=== PATIENT | female | born 1970 | race Caucasian/White ===

== ENCOUNTER 2017-02-06 08:57 | Emergency (ER) | payer OTHER ==
[~2017-02-06] VITALS: Ht 160 cm; Wt 66.2 kg
[~2017-02-06 08:57] MED LIST: AZITHROMYCIN250 MG PO; CLONAZEPAM0.5 MG PO; CYCLOBENZAPRINE10 MG PO; CYMBALTA60 M1 PO; FLEXERIL10 MG PO; FLUOXETINE HCL20 MG PO; KLONOPIN0.5 MG PO; LOVASTATIN10 MG PO; MOBIC15 MG PO; MOTRIN 600 MG600 MG PO; MULTIPLE VITAM1 EAC2 PO; PAXIL10 MG PO; SEROQUEL 100MG100 MG PO; SEROQUEL50 MG PO; VITAMIN D31000 UNI2 PO
[2017-02-06 10:04] LABS: ABSOLUTE BASOPHIL COUNT 0 /CUMM (0.0-0.2); ABSOLUTE EOSINOPHIL COUNT 0.4 /CUMM (0.0-0.7); ABSOLUTE GRANULOCYTE CT 3.4 /CUMM (1.4-6.5); ABSOLUTE LYMPH COUNT 1.2 /CUMM (1.2-3.4); ABSOLUTE MONOCYTE COUNT 0.4 /CUMM (0.10-0.60); BASOPHIL % 0.8 % (0.0-2.0); EOSINOPHIL % 7.2 % (0-5); GRANULOCYTE % 62.6 % (42.2-75.2); HEMATOCRIT 39.4 % (37-47); MEAN CORPUSCULAR HGB 31.9 PG (27.0-31.0); MEAN CORPUSCULAR HGB CONC 33.6 G/DL (33.0-37.0); MEAN PLATELET VOLUME 7.6 FL (7.4-10.4); PLATELET COUNT 305 /CUMM (130-400); RBC DISTRIBUTION WIDTH 12.9 % (11.5-14.5); RED BLOOD CELL CT 4.15 /CUMM (4.20-5.40); WHITE BLOOD CELL COUNT 5.4 /CUMM (4.8-10.8)
--- NOTE | 2017-02-06 11:17 | ED GI/GU/ABDOMINAL COMPLAINT ---
History of Present Illness General Chief Complaint: General Adult Stated Complaint: ABD PAIN 10 DAYS OF VOMITING WITHDRAWL FROM MED Source: patient, family, old records Exam Limitations: no limitations Vital Signs & Intake/Output Vital Signs & Intake/Output Vital Signs Date Time Temp Pulse Resp B/P Pulse O2 O2 Flow FiO2 Ox Delivery Rate 02/06 1437 97.0 90 18 116/65 98 Room Air 02/06 1014 98 Room Air 02/06 0911 96.5 89 20 145/85 99 Room Air Room Air Allergies Coded Allergies: amoxicillin (Mild, HIVES 01/03/16) clavulanic acid (Mild, HIVES 01/03/16) latex (Mild, HIVES 01/03/16) procaine (Intermediate, HYPERTENSION 01/06/16) benztropine (MYDRIASIS FOR 1 MONTH 01/06/16) Reconcile Medications Cholecalciferol (Vitamin D3) 1,000 IU TAB 1,000 IU PO DAILY VITAMIN D SUPPLEMET (Reported) DULOXETINE HCL (Cymbalta) 60 MG ECC 1 CAP PO DAILY MENTAL HEALTH (Reported) FLUOXETINE HCL (Fluoxetine HCl) 20 MG CAP 20 MG PO DAILY DEPRERSSION Lovastatin 10 MG TAB 1 TAB PO DAILY high lipid (Reported) Multivitamin (Multiple Vitamins) 1 TAB TAB 1 TAB PO DAILY SUPPLEMENT ( Reported) Polyethylene Glycol 3350 (Miralax) 17 GRAM/DOSE POWDER 17 GM PO DAILY constipation mix with water, juice, soda, coffee or tea Prochlorperazine (Compazine) 25 MG SUPP.RECT 1 SUPP TX Q6P PRN vomiting Prochlorperazine Maleate (Compazine) 10 MG TABLET 1 TAB PO Q6P PRN nausea Quetiapine Fumarate (Seroquel) 100 MG TAB 1 TAB PO QPM SLEEP (Reported) Quetiapine Fumarate (Seroquel) 50 MG TAB 1 TAB PO DAILY MENTAL HEALTH ( Reported) Quetiapine Fumarate (Seroquel) 50 MG TAB 1 TAB PO PRN MENTAL HEALTH (Reported ) Triage Note: PT TO ED WITH C/O "I AM WEANING OFF OF PAXIL, UNDER A DOCTOR'S CARE". PT TO ED WITH C/O " FEELING JITTERY, NOT POOPING, VOMITING X 11 YESTERDAY". Triage Nurses Notes Reviewed? yes LMP (ages 10-50): unknown ? n Is pt currently ? No Onset: Last week Duration: week(s):, continues in ED Timing: recent history Quality/Severity: sharpness, vomiting Location: epigastric Activities at Onset: none Prior Abdominal Problems: similar symptoms Past Sexual History: Unobtainable at this time Modifying Factors: Worsens With: exercise. Associated Symptoms: abdominal pain, loss of appetite, nausea/vomiting HPI: 2 weeks prior to admission patient began taper off Paxil and has had nausea vomiting epigastric burning chest discomfort decreased appetite weakness constipation anxiety. She denies fever chills shortness of breath headache dysuria rash bleeding suicidal ideation homicidal ideation hallucination. Past History Travel History Traveled to [facility] past 21 day No Medical History Any Pertinent Medical History? see below for history Neurological: NONE EENT: allergies Cardiovascular: hyperlipidemia Respiratory: NONE Gastrointestinal: NONE Hepatic: NONE Renal: NONE Musculoskeletal: left knee pain Psychiatric: anxiety, depression, 20YRS AGO-SELF INJURIOUS CUTTING TO LEFT ARM Endocrine: NONE, vitamin D deficiency Blood Disorders: NONE, anemia Cancer(s): NONE EX CHEF/Reproductive: SHAR-MENAPAUSAL SHAR-MENOPAUSAL Other Medical Hx: Patient had a mild normocytic anemia during recent [facility] admission but H&H normal in [employer]. History of MRSA: No History of VRE: No History of CDIFF: No Influenza Vaccine: 07/08/15 Surgical History Surgical History: non-contributory Psychosocial History Who do you live with Cousin Services at Home None What is your primary language Pashto Tobacco Use: Never used ETOH Use: denies use Illicit Drug Use: denies illicit drug use Family History Hx Contributory? No Review of Systems Review of Systems Constitutional: Reports: see HPI, malaise, weakness. EENTM: Reports: no symptoms. Respiratory: Reports: no symptoms. Cardiovascular: Reports: no symptoms. GI: Reports: see HPI, abdominal pain, constipation, vomiting. Genitourinary: Reports: no symptoms. Musculoskeletal: Reports: no symptoms. Skin: Reports: no symptoms. Neurological/Psychological: Reports: see HPI, anxiety, confusion, depressed, emotional problems. Hematologic/Endocrine: Reports: no symptoms. Immunologic/Allergic: Reports: no symptoms. All Other Systems: Reviewed and Negative Physical Exam Physical Exam General Appearance: well developed/nourished, alert, awake, anxious, severe distress Head: atraumatic, normal appearance Eyes: Bilateral: normal appearance, PERRL, EOMI, normal inspection. Ears, Nose, Throat, Mouth: hearing grossly normal, dry mucous membranes Neck: normal inspection, supple, full range of motion, normal alignment Respiratory: normal breath sounds, chest non-tender, no respiratory distress, quiet respiration, lungs clear Cardiovascular: regular rate/rhythm, normal peripheral pulses, norml femoral pulses equa Peripheral Pulses: 4+ carotid (R), 4+ carotid (L) Gastrointestinal: normal bowel sounds, soft, non-tender, no organomegaly Back: normal inspection, normal range of motion Extremities: normal range of motion, no ligament instability Neurologic/Psych: no motor/sensory deficits, awake, alert, oriented x 3, electrical and instrument technician II- XII nml as tested Skin: intact, normal color, warm/dry Core Measures ACS in differential dx? No Severe Sepsis Present: No Septic Shock Present: No Progress Differential Diagnosis: biliary colic, gastritis, pancreatitis Plan of Care: Orders Procedure Date/time Status EKG 02/06 09 Active LIPASE 02/06 933 Complete COMPREHENSIVE METABOLIC PANEL 02/06 933 Complete CBC WITHOUT DIFFERENTIAL 02/06 933 Complete Current Medications Sig/Hortencia Start time Last Medication Dose Stop Time Status Admin Prochlorperazine 25 MG ONCE ONE 02/06 1600 UNVr (Compazine 25 MG 02/06 1601 Suppository) Laboratory Tests 02/06/17 0743: Anion Gap 6, Estimated GFR > 60, BUN/Creatinine Ratio 15.7, Glucose 87, Calcium 9.4, Total Bilirubin 0.3, AST 21, ALT 36, Alkaline Phosphatase 54, Total Protein 7.0, Albumin 4.0, Globulin 3.0, Albumin/Globulin Ratio 1.3, Lipase 77, CBC w Diff NO MAN DIFF REQ, RBC 4.15 L, MCV 95.0, MCH 31.9 H, RDW 12.9, MPV 7.6, Gran % 62.6, Lymphocytes % 22.9, Monocytes % 6.5, Eosinophils % 7.2 H, Basophils % 0.8, Absolute Granulocytes 3.4, Absolute Lymphocytes 1.2, Absolute Monocytes 0.4, Absolute Eosinophils 0.4, Absolute Basophils 0, PUBS MCHC 33.6 Diagnostic Imaging: Viewed by Me: Radiology Read. Discussed w/RAD: Radiology Read. Radiology Impression: no acute abnormality, increased stool burden Initial ED EKG: normal axis, normal intervals, normal p-waves, normal QRS complex, normal sinus rhythm, no ST T wave changes Rhythm Strip: normal sinus rhythm Departure Departure Time of Disposition: 1537 Disposition: HOME OR SELF CARE Condition: Stable Clinical Impression Primary Impression: Medication withdrawal Qualifiers: Substance type: other psychoactive substance Qualified Code: F19.939 - Other psychoactive substance use, unspecified with withdrawal, unspecified Secondary Impressions: Constipation Qualifiers: Constipation type: unspecified constipation type Qualified Code: K59.00 - Constipation, unspecified Vomiting Qualifiers: Vomiting type: unspecified Vomiting Intractability: unspecified Nausea presence: unspecified Qualified Code: R11.10 - Vomiting, unspecified Referrals: HARINDER COLON MD (PCP/Family) Departure Forms: Customer Survey General Discharge Information Prescriptions: Current Visit Scripts Prochlorperazine Maleate (Compazine) 1 TAB PO Q6P PRN nausea #30 TAB Prochlorperazine (Compazine) 1 SUPP TX Q6P PRN vomiting #30 SUPP Polyethylene Glycol 3350 (Miralax) 17 GM PO DAILY #527 GM mix with water, juice, soda, coffee or tea
--- NOTE | 2017-02-06 13:05 | RADIOLOGY REPORT ---
EXAMINATION: XR ABDOMEN WITH PA CHEST CLINICAL INDICATION: 46-year-old woman with constipation and chest pain. COMPARISON: 11/16/2015 chest radiograph TECHNIQUE: PA film of the chest was obtained along with supine and upright films of the abdomen. FINDINGS: The lungs are fairly well expanded and clear, without evidence of focal consolidation, pulmonary edema, or pneumothorax. Heart size is within the range of normal. There are no pleural effusions. No free air is seen underneath either hemidiaphragm. Fairly extensive fecal matter seen throughout nondilated loops of large bowel. No dilated small bowel loops, free peritoneal air, or levels are identified. IMPRESSION: 1. No evidence of an acute cardiopulmonary process. 2. Nonspecific bowel gas pattern.
[2017-02-06] MEDS ORDERED: MIRALAX119 GM PO (15:47)
[2017-02-06] MEDS ORDERED: COMPAZINE10 M1 PO (15:47)
[2017-02-06] MEDS ORDERED: COMPAZINE25 M1 PR (15:47)
[2017-02-06 15:57] VITALS: BP 122/68
[2017-02-07] MEDS ORDERED: LOVASTATIN10 M1 PO (11:37)
[2017-02-07] MEDS ORDERED: QUETIAPINE FUMA25 M1 PO (11:38)
[2017-02-07] MEDS ORDERED: ESCITALOPRAM OXA5 MG PO (11:38)
[2017-02-07] MEDS ORDERED: KLONOPIN1 M1 PO (11:38)
[2017-02-07] MEDS ORDERED: PAXIL10 MG/5 M1 PO (11:38)
[2017-02-07] MEDS ORDERED: SEROQUEL XR50 M1 PO (11:39)
[2017-02-07] MEDS ORDERED: FERROUS SULFAT325 M3 PO (11:39)
[2017-02-07] MEDS ORDERED: FLUOXETINE HCL20 M2 PO (11:43)
== END 2017-02-06 16:11 ==
LOC: ERH 08:57
PROVIDERS: Emergency Medicine
DX: F19.939 Other psychoactive substance use, unspecified with withdrawal, unspecified (principal); K59.00 Constipation, unspecified; R11.10 Vomiting, unspecified; R10.13 Epigastric pain; R07.89 Other chest pain
CPT/HCPCS: 74022; 93005; 93010; 96374; 96375; J0780; J1200; J2405

== ENCOUNTER 2017-02-07 11:02 | Inpatient (IN) | payer OTHER ==
[~2017-02-07] VITALS: Ht 160 cm; Wt 65.8 kg
[~2017-02-07 11:02] MED LIST changes: +COMPAZINE10 M1 PO; +COMPAZINE25 M1 PR; +MIRALAX119 GM PO
--- NOTE | 2017-02-07 11:05 | NUR ---
PT BIBA FOR ABDOMINAL PAIN. PT STATES SHE WAS HERE YESTERDAY FOR EVAL OF ABDOMINAL PAIN. PT WAS AT THERAPIST OFFICE AND VOMITTED AND THERAPIST CALLED 911. PT STATES MEDS RECENTLY CHANGED AND SHE ISN'T FEELING WELL
--- NOTE | 2017-02-07 11:07 | NUR ---
PT STATES LEXAPRO DOSE WAS INCREASED AND PAXIL WAS DECREASED AND SINCE THIS STARTED SHE HASN'T BEEN FEELING WELL. PT VERY TEARFUL IN TRIAGE. PT STATES SHE FEELS LIKE SHE "WANTS TO BECAUSE SHE CAN'T TAKE IT ANYMORE"
--- NOTE | 2017-02-07 11:25 | NUR ---
PT TO [facility] AT BEDSIDE FOR WANDING
[2017-02-07] MEDS ORDERED: LOVASTATIN10 M1 PO (11:37)
[2017-02-07] MEDS ORDERED: ESCITALOPRAM OXA5 MG PO (11:38)
[2017-02-07] MEDS ORDERED: PAXIL10 MG/5 M1 PO (11:38)
[2017-02-07] MEDS ORDERED: QUETIAPINE FUMA25 M1 PO (11:38)
[2017-02-07] MEDS ORDERED: KLONOPIN1 M1 PO (11:38)
[2017-02-07] MEDS ORDERED: FERROUS SULFAT325 M3 PO (11:39)
[2017-02-07] MEDS ORDERED: SEROQUEL XR50 M1 PO (11:39)
[2017-02-07] MEDS ORDERED: FLUOXETINE HCL20 M2 PO (11:43)
--- NOTE | 2017-02-07 11:45 | NUR ---
PT CHANGED INTO [facility]. PT HAS 1 BELONING BAG IN CLOSET, 1 VALUBLES BAG AND 1 BAG TO [facility]
--- NOTE | 2017-02-07 12:06 | ED GENERAL ADULT ---
History of Present Illness General Chief Complaint: Abdominal Pain/Flank Pain Stated Complaint: BIBA ABD PAIN, HERE YES FOR SAME Source: patient Exam Limitations: poor historian Vital Signs & Intake/Output Vital Signs & Intake/Output Vital Signs Date Time Temp Pulse Resp B/P Pulse O2 O2 Flow FiO2 Ox Delivery Rate 02/07 2239 98.4 90 18 115/58 99 Room Air 02/07 2042 98.2 89 18 118/64 98 Room Air 02/07 1530 98.5 97 18 123/67 96 Room Air 02/07 1105 97.9 89 20 127/83 98 Room Air Allergies Coded Allergies: amoxicillin (Mild, HIVES 01/03/16) clavulanic acid (Mild, HIVES 01/03/16) latex (Mild, HIVES 01/03/16) procaine (Intermediate, HYPERTENSION 01/06/16) benztropine (MYDRIASIS FOR 1 MONTH 01/06/16) Reconcile Medications Cholecalciferol (Vitamin D3) 1,000 UNIT TABLET 1 TAB PO DAILY SUPPLEMENT ( Reported) Clonazepam (Klonopin) 0.5 MG TABLET 1 TAB PO BIDP PRN ANXIETY (Reported) Duloxetine HCl (Cymbalta) 60 MG CAPSULE.DR 1 CAP PO DAILY MENTAL HEALTH ( Reported) Escitalopram Oxalate 5 MG TABLET 2 TAB PO DAILY MENTAL HEALTH (Reported) Ferrous Sulfate 325 MG (65 MG IRON) TABLET 1 TAB PO DAILY SUPPLEMENT ( Reported) Fluoxetine HCl 20 MG CAPSULE 1 CAP PO DAILY DEPRESSION (Reported) Lovastatin 10 MG TABLET 1 TAB PO QPM CHOLESTEROL (Reported) Multivitamin (Multiple Vitamins) 1 EACH TABLET 1 TAB PO DAILY SUPPLEMENT ( Reported) Paroxetine (Paxil) 10 MG/5 ML ORAL.SUSP 7 ML PO QPM MENTAL HEALTH (Reported) Polyethylene Glycol 3350 (Miralax) 17 GRAM/DOSE POWDER 17 GM PO DAILY constipation mix with water, juice, soda, coffee or tea Prochlorperazine (Compazine) 25 MG SUPP.RECT 1 SUPP DE Q6P PRN vomiting Prochlorperazine Maleate (Compazine) 10 MG TABLET 1 TAB PO Q6P PRN nausea Quetiapine Fumarate 25 MG TABLET 1 TAB PO QPM SLEEP (Reported) Quetiapine Fumarate (Seroquel XR) 50 MG TAB.ER.24H 1 TAB PO QPM SLEEP ( Reported) Triage Note: PT BIBA FOR ABDOMINAL PAIN. PT STATES SHE WAS HERE YESTERDAY FOR EVAL OF ABDOMINAL PAIN. PT WAS AT THERAPIST OFFICE AND VOMITTED AND THERAPIST CALLED 911. PT STATES MEDS RECENTLY CHANGED AND SHE ISN'T FEELING WELL Triage Nurses Notes Reviewed? yes Onset: Abrupt Duration: day(s): Timing: recent history HPI: 02/07/17 12:50 PM This is a 46-year-old female presents to the emergency department complaining of epigastric abdominal pain and vomiting. She says that she thinks it's a reaction to her medications and that she doesn't feel well. She says she also has severe anxiety. She was seen and evaluated in the emergency department yesterday. The onset of symptoms was abrupt, the duration has been days, the severity is significant; as her symptoms required her to come to the emergency department for care. Past History Travel History Traveled to [facility] past 21 day No Medical History Any Pertinent Medical History? see below for history Neurological: NONE EENT: allergies Cardiovascular: hyperlipidemia Respiratory: NONE Gastrointestinal: NONE Hepatic: NONE Renal: NONE Musculoskeletal: left knee pain Psychiatric: anxiety, depression, 20YRS AGO-SELF INJURIOUS CUTTING TO LEFT ARM Endocrine: NONE, vitamin D deficiency Blood Disorders: NONE, anemia Cancer(s): NONE SAND MILLER/Reproductive: SHAR-MENAPAUSAL SHAR-MENOPAUSAL Other Medical Hx: Patient had a mild normocytic anemia during recent [facility] admission but H&H normal in [employer]. History of MRSA: No History of VRE: No History of CDIFF: No Surgical History Surgical History: non-contributory Psychosocial History Who do you live with Cousin Services at Home None What is your primary language Wolof Tobacco Use: Never used Family History Hx Contributory? No Review of Systems Review of Systems Constitutional: Denies: fever. EENTM: Denies: visual changes. Respiratory: Denies: short of breath. Cardiovascular: Denies: chest pain. GI: Reports: abdominal pain. Genitourinary: Reports: no symptoms. Musculoskeletal: Reports: see HPI. Skin: Denies: rash. Neurological/Psychological: Denies: headache. Hematologic/Endocrine: Reports: no symptoms. Physical Exam Physical Exam General Appearance: alert, awake, anxious, moderate distress Head: atraumatic, normal appearance Eyes: Bilateral: normal appearance, PERRL, EOMI. Ears, Nose, Throat: normal pharynx, normal ENT inspection Neck: normal inspection, full range of motion Respiratory: normal breath sounds, chest non-tender, no respiratory distress Cardiovascular: regular rate/rhythm Gastrointestinal: soft, non-tender Back: normal range of motion Extremities: normal inspection, normal range of motion, no edema Neurologic/Psych: no motor/sensory deficits, awake, alert Skin: intact, normal color, warm/dry Core Measures ACS in differential dx? No CVA/TIA Diagnosis: No Severe Sepsis Present: No Septic Shock Present: No Progress Differential Diagnoses I considered the following diagnoses in my evaluation of the patient: [Gastritis , adverse drug reaction, pancreatitis, peptic ulcer disease, depression, anxiety , opiate withdrawal] Plan of Care: Orders Procedure Date/time Status Regular Diet 02/08 B Active Patient Data - inpatient psych 02/07 2021 Active Admit to inpatient psych 02/07 2021 Active Admit to inpatient psych 02/07 193 Active Admit to inpatient psych 02/07 1929 Active ED CRISIS PSYCH CONSULT 02/07 1530 Active Intake & Output 02/07 1308 Active Add-on Test (ER Only) 02/07 1256 Active URINE DRUG SCREEN FOR ER ONLY 02/07 1252 Complete HUMAN BETA HCG SCREEN 02/07 1252 Complete ETHANOL 02/07 1252 Complete COMPREHENSIVE METABOLIC PANEL 02/07 1252 Complete CBC WITHOUT DIFFERENTIAL 02/07 1252 Complete Vital Signs 02/07 UNK Active Nursing Misc 02/07 UNK Active Activity/Ambulation 02/07 UNK Active Current Medications Sig/Hortencia Start time Last Medication Dose Stop Time Status Admin Atorvastatin Calcium 10 MG 1700 02/08 1700 AC (Lipitor) Escitalopram Oxalate 10 MG DAILY 02/08 1000 AC (Lexapro) Paroxetine HCl 10 MG DAILY 02/08 1000 AC (Paxil) Polyethylene Glycol 17 GM DAILY 02/08 1000 AC (Miralax) Quetiapine Fumarate 75 MG AT BEDTIME 02/07 2200 AC (Seroquel) Acetaminophen 650 MG Q4P PRN 02/07 2030 AC (Tylenol) Lorazepam 1 MG Q6-PRN PRN 02/07 2030 AC (Ativan) Nicotine 2 MG Q2 HRS NEEDED PRN 02/07 2030 AC (Nicotine) Ondansetron HCl 4 MG Q6-PRN PRN 02/07 2030 AC (Zofran) Laboratory Tests 02/07/17 1303: Anion Gap 4 L, Estimated GFR > 60, BUN/Creatinine Ratio 17.1, Glucose 79, Calcium 9.0, Total Bilirubin 0.3, AST 20, ALT 35, Alkaline Phosphatase 53, Total Protein 6.8, Albumin 3.8, Globulin 3.0, Albumin/Globulin Ratio 1.3, Total Beta HCG NEGATIVE, CBC w Diff NO MAN DIFF REQ, RBC 3.93 L, MCV 93.6, MCH 31.9 H, RDW 12.6, MPV 7.4, Gran % 64.0, Lymphocytes % 23.6, Monocytes % 7.1, Eosinophils % 5.0, Basophils % 0.3, Absolute Granulocytes 4.3, Absolute Lymphocytes 1.6, Absolute Monocytes 0.5, Absolute Eosinophils 0.3, Absolute Basophils 0, PUBS MCHC 34.0, Serum Alcohol < 10.0 02/07/17 1300: Urine Opiates Screen < 100.00, Methadone Screen 70, Barbiturate Screen < 60, Ur Phencyclidine Scrn < 6.00, Amphetamines Screen < 100, U Benzodiazepines Scrn 101 , Urine Cocaine Screen < 50, Urine Cannabis Screen < 5.00 Initial ED EKG: none Departure Departure Disposition: STILL A PATIENT Condition: Stable Clinical Impression Primary Impression: Anxiety Secondary Impressions: Depression, Vomiting (bilious) following gastrointestinal surgery Referrals: HARINDER COLON MD (PCP/Family) Departure Forms: Customer Survey General Discharge Information Comments 02/07/17 3:29 PM The patient's labs are unremarkable. CT scan of the abdomen and pelvis is negative. She is pending crisis evaluation. She is requesting to speak with crisis about her anxiety. 02/07/17 PATIENT SIGNED OUT TO DR SAMUELS AT [address] scan of the abdomen and pelvis was negative for acute pathology PATIENT: HUYEN PÉREZ PRESENT AGE: 46 PATIENT ACCOUNT NO: [id number] : 68 LOCATION: [facility] ORDERING PHYSICIAN: BRITTNEY LOBATO DO SERVICE DATE: 02/07/17 EXAM TYPE: CAT - CT ABD & PELVIS W/O IV CONTRAS EXAMINATION: CT ABDOMEN AND PELVIS WITHOUT CONTRAST CLINICAL INFORMATION: Diffuse abdominal pain for 2 days. Evaluate for diverticulitis or pancreatitis. COMPARISON: CT of the abdomen and pelvis 01/31/2015. TECHNIQUE: Multidetector volumetric imaging was performed from the superior aspect of the liver through the pubic symphysis. Sagittal and coronal reformatted images were obtained on the technologist's workstation. DLP: 276.12 mGy-cm FINDINGS: LUNG BASES: The visualized lung bases are unremarkable. LIVER, GALLBLADDER, AND BILIARY TREE: The liver is normal in size, shape, and attenuation. No focal hepatic lesion or biliary ductal dilatation is present. The gallbladder is unremarkable with no evidence of radiopaque gallstones, gallbladder wall thickening, or obvious pericholecystic inflammatory changes. PANCREAS: Unremarkable. SPLEEN: Unremarkable. ADRENAL GLANDS: Unremarkable. KIDNEYS AND URETERS: The kidneys are normal in size, shape, and attenuation. No hydronephrosis, hydroureter, or calculi seen. No perinephric stranding. BLADDER: Unremarkable. GASTROINTESTINAL TRACT: The small and large bowel are unremarkable. The appendix is unremarkable. ABDOMINAL WALL: No significant hernia is appreciated. LYMPH NODES: Normal. VASCULAR: Unremarkable. PELVIC VISCERA: Unremarkable. OSSEOUS STRUCTURES: There is stable mild degenerative disc disease at L3-L4, with a slight retrolisthesis of L3 on L4. IMPRESSION: No acute abnormalities in the abdomen or pelvis. DICTATED BY: SILVESTRE SANTOS MD DATE/TIME DICTATED:02/07/171449 DATA GOVERNANCE ANALYST:ROB DATE/TIME TRANSCRIBED:02/07/171449 CONFIDENTIAL, DO NOT COPY WITHOUT APPROPRIATE AUTHORIZATION. <Electronically signed in Other Vendor System> SIGNED BY: SILVESTRE SANTOS MD [id number] Psych Admission Note Psychiatric Admission: I have seen and evaluated HUYEN PÉREZ. I have also reviewed all the pertinent lab results and diagnostic results. HUYEN PÉREZ will be admitted to our inpatient Psychiatric unit for treatment and care. 02/07/17 The patient is being admitted to inpatient psychiatry Critical Care Note Critical Care Note Critical Care Time: 30-74 min
--- NOTE | 2017-02-07 13:08 | NUR ---
LABS DRAWN AND SENT. PT STATES SHE'S ONLY HERE FOR PSYCH, NOT MEDICAL. DOESN'T UNDERSTAND WHY WE NEED TO OBTAIN BLOOD WORK. POLICY AND POC REVIEWED WITH PATIENT
--- NOTE | 2017-02-07 13:09 | NUR ---
PT MEDICATED PER EMAR AT THIS TIME.
[2017-02-07 13:29] LABS: ABSOLUTE BASOPHIL COUNT 0 /CUMM (0.0-0.2); ABSOLUTE EOSINOPHIL COUNT 0.3 /CUMM (0.0-0.7); ABSOLUTE GRANULOCYTE CT 4.3 /CUMM (1.4-6.5); ABSOLUTE LYMPH COUNT 1.6 /CUMM (1.2-3.4); ABSOLUTE MONOCYTE COUNT 0.5 /CUMM (0.10-0.60); BASOPHIL % 0.3 % (0.0-2.0); HEMATOCRIT 36.8 % (37-47); MEAN CORPUSCULAR HGB 31.9 PG (27.0-31.0); MEAN CORPUSCULAR VOLUME 93.6 FL (81.0-99.0); MEAN PLATELET VOLUME 7.4 FL (7.4-10.4); PLATELET COUNT 292 /CUMM (130-400); RBC DISTRIBUTION WIDTH 12.6 % (11.5-14.5); RED BLOOD CELL CT 3.93 /CUMM (4.20-5.40); WHITE BLOOD CELL COUNT 6.7 /CUMM (4.8-10.8)
--- NOTE | 2017-02-07 14:47 | NUR ---
PT TO AND FROM CAT SCAN
--- NOTE | 2017-02-07 15:09 | CT SCAN REPORT ---
EXAMINATION: CT ABDOMEN AND PELVIS WITHOUT CONTRAST CLINICAL INFORMATION: Diffuse abdominal pain for 2 days. Evaluate for diverticulitis or pancreatitis. COMPARISON: CT of the abdomen and pelvis 01/31/2015. TECHNIQUE: Multidetector volumetric imaging was performed from the superior aspect of the liver through the pubic symphysis. Sagittal and coronal reformatted images were obtained on the technologist's workstation. DLP: 276.12 mGy-cm FINDINGS: LUNG BASES: The visualized lung bases are unremarkable. LIVER, GALLBLADDER, AND BILIARY TREE: The liver is normal in size, shape, and attenuation. No focal hepatic lesion or biliary ductal dilatation is present. The gallbladder is unremarkable with no evidence of radiopaque gallstones, gallbladder wall thickening, or obvious pericholecystic inflammatory changes. PANCREAS: Unremarkable. SPLEEN: Unremarkable. ADRENAL GLANDS: Unremarkable. KIDNEYS AND URETERS: The kidneys are normal in size, shape, and attenuation. No hydronephrosis, hydroureter, or calculi seen. No perinephric stranding. BLADDER: Unremarkable. GASTROINTESTINAL TRACT: The small and large bowel are unremarkable. The appendix is unremarkable. ABDOMINAL WALL: No significant hernia is appreciated. LYMPH NODES: Normal. VASCULAR: Unremarkable. PELVIC VISCERA: Unremarkable. OSSEOUS STRUCTURES: There is stable mild degenerative disc disease at L3-L4, with a slight retrolisthesis of L3 on L4. IMPRESSION: No acute abnormalities in the abdomen or pelvis.
--- NOTE | 2017-02-07 15:11 | NUR ---
Rowdy HOLLIDAY from Out Pt tx called to inform that pt's therapist Josefa Dukes called to let her know pt was sent to the ED for medical reasons, from her therapist's office, but as she was waiting for the ambulance she made a passive SI statement that she wishes God would take her. Clarisse also treats pt in Out pt.
--- NOTE | 2017-02-07 15:17 | ED PSY CRISIS COLLATERAL NOTE ---
Collateral Note Collateral Note Family/Inform/Cedric Contacts: Clarisse HOLLIDAY from Out pt called to inform that pt was sent from her therapist' s Josefa Abernathy office for medical reasons, but as she was waiting for the ambulance, she made a passive suicidal statement that she wishes God would take her. Clarisse treats pt in Out pt for med management and Josefa is her therapist in private practice.
--- NOTE | 2017-02-07 16:10 | NUR ---
PT MEDICATED WITH GI COCKTAIL PER ORDER AT THIS TIME. PT SITTING UP EATING LUNCH TRAY. SITTER REMAINS PRESENT
--- NOTE | 2017-02-07 17:00 | NUR ---
PT AWAITING CRISIS EVAL. Informed waiting has been performed.
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
--- NOTE | 2017-02-07 20:07 | NUR ---
PT ANXIOUS, ON PHONE WITH MOTHER, REQUESTING ATIVAN. CRISIS MADE AWARE
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
--- NOTE | 2017-02-07 22:34 | NUR ---
PT MEDICATED WITH 50 MG SEROQUIL AND 0.5 MG KLONOPIN ORDERED
--- NOTE | 2017-02-08 00:10 | NUR ---
REPORT GIVEN TO TRACIE BABCOCK. PT TRANSFERRED TO [facility] WITH 1 BELONGINGS AND ONE VALUABLES BAG. PERSONAL MEDS REMAIN IN PHARMACY
--- NOTE | 2017-02-08 06:05 | NUR ---
SLEPT WELL OVERNIGHT, NO COMPLAINTS
[2017-02-08 08:23] VITALS: BP 120/75
--- NOTE | 2017-02-08 09:47 | OP PSYCH DISCHARGE ---
DSM5/PS Stressors/Medical Prob Diagnosis' (DSM 5, Stressors, Medical): F332. Major Depressive Disorder, recurrent, severe with anxious Distress and F43.10 PTSD (Per IOP D/C Note) Current GAF: 25 Comments: N/A REASON FOR DISCHARGE: CHANGED TO DIFFERENT LIP, Patient presented at ER with suicidal ideation. ADDITIONAL COMMENTS: Patient was sent to ER for evaluation by her 1:1 therapist; prescriber was informed that she is being evaluated for suicidal ideation as she attempts to come off of Paxil DSM5/PS Stressors/Medical Prob Diagnosis' (DSM 5, Stressors, Medical): F332. Major Depressive Disorder, recurrent, severe with anxious Distress and F43.10 PTSD (Per IOP D/C Note) Current GAF: 25 Comments: N/A
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
--- NOTE | 2017-02-08 11:01 | SOCIAL WORKER PROG NOTE PSYCH ---
Social Work Progress Note Progress Note Pt continues to endorse suicidal thoughts, she feels her medication is not working effectively, she is concerned with anxiety and general feeling unneasiness. She reports feeling concerned about not getting her period. Pt was cooperative and completed psychosocial.
--- NOTE | 2017-02-08 12:04 | History & Physical ---
General Information and HPI MD Statement: I have seen and personally examined HUYEN PÉREZ and documented this H&P. The patient is a 46 year old F who presented with a patient stated chief complaint of depresion.. Source of Information: patient Exam Limitations: no limitations History of Present Illness: 46 y/o F with pmh sig for depression, anxiety, hyperlipidemia, anemia was admitted to [facility] with complaint off vomiting which is intractable. As an outpatient patient's psychiatrist is trying to adjust her Paxil as well as Lexapro. Patient claims that she had experienced vomiting in the past when the medications were adjusted. The nausea, dry heaving is so much that she had made statement that she wants to . Upon my interview with the patient patient denies any such feelings of hurting herself. She is very uncomfortable with the constant nausea feeling and claims that she would like to get some Maalox with lidocaine. She also is requesting a warm compress. She currently denies any headache, any chest pain. She does complain of constipation. Allergies/Medications Allergies: Coded Allergies: amoxicillin (Mild, HIVES 01/03/16) clavulanic acid (Mild, HIVES 01/03/16) latex (Mild, HIVES 01/03/16) procaine (Intermediate, HYPERTENSION 01/06/16) benztropine (MYDRIASIS FOR 1 MONTH 01/06/16) Home Med list Cholecalciferol (Vitamin D3) 1,000 UNIT TABLET 1 TAB PO DAILY SUPPLEMENT ( Reported) Clonazepam (Klonopin) 0.5 MG TABLET 1 TAB PO BIDP PRN ANXIETY (Reported) Escitalopram Oxalate 5 MG TABLET 2 TAB PO DAILY MENTAL HEALTH (Reported) Ferrous Sulfate 325 MG (65 MG IRON) TABLET 1 TAB PO DAILY SUPPLEMENT ( Reported) Lovastatin 10 MG TABLET 1 TAB PO QPM CHOLESTEROL (Reported) Multivitamin (Multiple Vitamins) 1 EACH TABLET 1 TAB PO DAILY SUPPLEMENT ( Reported) Paroxetine (Paxil) 10 MG/5 ML ORAL.SUSP 7 ML PO QPM MENTAL HEALTH (Reported) Polyethylene Glycol 3350 (Miralax) 17 GRAM/DOSE POWDER 17 GM PO DAILY constipation mix with water, juice, soda, coffee or tea Prochlorperazine (Compazine) 25 MG SUPP.RECT 1 SUPP [place] Q6P PRN vomiting Prochlorperazine Maleate (Compazine) 10 MG TABLET 1 TAB PO Q6P PRN nausea Quetiapine Fumarate 25 MG TABLET 1 TAB PO QPM SLEEP (Reported) Quetiapine Fumarate (Seroquel XR) 50 MG TAB.ER.24H 1 TAB PO QPM SLEEP ( Reported) Past History Travel History Traveled to [place] past 21 day No Medical History Neurological: NONE EENT: allergies Cardiovascular: hyperlipidemia Respiratory: NONE Gastrointestinal: NONE Hepatic: NONE Renal: NONE Musculoskeletal: NONE Psychiatric: anxiety, depression, 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 History of MRSA: No History of VRE: No History of CDIFF: No Influenza Vaccine: 09/07/16 Surgical History Surgical History: non-contributory Past Family/Social History Family History Relations & Conditions if any MOTHER Relation not specified for: FH: cancer Psychosocial History Who Do You Live With? parent Services at Home: None Primary Language: French Functional Ability ADLs Independent: dressing, eating, toileting, bathing. Ambulation: independent IADLs Independent: shopping, housework, finances, food prep, telephone, transportation , medication admin. 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 EENTM: Reports: see HPI. Cardiovascular: Reports: see HPI. Respiratory: Reports: see HPI. GI: Reports: see HPI. Genitourinary: Reports: see HPI. Musculoskeletal: Reports: see HPI. Skin: Reports: see HPI. Exam & Diagnostic Data Last 24 Hrs of Vital Signs/I&O Vital Signs Date Time Temp Pulse Resp B/P Pulse O2 O2 Flow FiO2 Ox Delivery Rate 02/08 1229 88 124/69 02/08 0823 98.3 95 120/75 02/08 0000 98.2 90 18 116/60 99 Room Air 02/07 2239 98.4 90 18 115/58 99 Room Air 02/07 2042 98.2 89 18 118/64 98 Room Air 02/07 1530 98.5 97 18 123/67 96 Room Air Intake & Output 02/08 1600 02/08 0800 02/08 0000 Intake Total Output Total Balance Patient 145 lb Weight Physical Exam General Appearance Alert, Oriented X3, Cooperative, looks uncomfortale 2/2 to nausea Skin No Rashes, No Breakdown HEENT PERRLA, mucous membranes somewhat dry Neck Supple Cardiovascular Regular Rate, Normal S1, Normal S2 Lungs Clear to Auscultation Abdomen Normal Bowel Sounds, Soft, No Tenderness Neurological Cranial Nerves II through XII: intact Extremities No Edema Last 24 Hrs of Labs/Mack: Laboratory Tests 02/07/17 1303: Anion Gap 4 L, Estimated GFR > 60, BUN/Creatinine Ratio 17.1, Glucose 79, Calcium 9.0, Total Bilirubin 0.3, AST 20, ALT 35, Alkaline Phosphatase 53, Total Protein 6.8, Albumin 3.8, Globulin 3.0, Albumin/Globulin Ratio 1.3, Total Beta HCG NEGATIVE, CBC w Diff NO MAN DIFF REQ, RBC 3.93 L, MCV 93.6, MCH 31.9 H, RDW 12.6, MPV 7.4, Gran % 64.0, Lymphocytes % 23.6, Monocytes % 7.1, Eosinophils % 5.0, Basophils % 0.3, Absolute Granulocytes 4.3, Absolute Lymphocytes 1.6, Absolute Monocytes 0.5, Absolute Eosinophils 0.3, Absolute Basophils 0, PUBS MCHC 34.0, Serum Alcohol < 10.0 02/07/17 1300: Urine Opiates Screen < 100.00, Methadone Screen 70, Barbiturate Screen < 60, Ur Phencyclidine Scrn < 6.00, Amphetamines Screen < 100, U Benzodiazepines Scrn 101 , Urine Cocaine Screen < 50, Urine Cannabis Screen < 5.00 Assessment/Plan Assessment: 46-year-old female is admitted to Inpatient Psychiatry with intractable nausea and vomiting likely secondary to medication side effects and side effect from medication dose adjustment. She also had made some suicidal ideation statement because of her symptoms. I believe the psychiatric management to psychiatrist. She has ordered Zofran. I will order some GI cocktail for her and who also request a warm compress. I will order some stool softeners for her. For her hyperlipidemia, she is on lovastatin. He is she will be getting atorvastatin. Continue the rest of the medications. As Ranked By This Provider Problem List: 1. Vomiting 2. Constipation 3. Anxiety 4. Depression Miscellaneous Miscellaneous Documentation Attending Case Discussed With: Ana Jesus MD Primary Care Physician: ISAIAH KINNEY,HARINDER Patient sees these Specialists pschiatrist Level of Patient Care: MILAN Alberts Attending MD Review Statement Attending Statement Attending MD Statement: examined this patient, discuss w/resident/PA/BENCH HAND, agreed w/resident/PA/BENCH HAND, reviewed EMR data (avail), discussed with nursing, amended to note
--- NOTE | 2017-02-08 12:04 | SOCIAL WORKER TX PLAN PSYCH ---
Treatment Plan - Please Document: - Evidence that there is ongoing collaboration between - the patient and the interdisciplinary team, - including the patient's active participation and - responsibility for engaging in the treatment regimen, - and that the treatment plan is individualized and - relevant to the patient's conditions. - Treatment plan should reflect documentation indicating - that all active therapeutic efforts are included. Strengths/Capabilities: The patient has good insight into her symptoms and is motivated for treatment. Physical Limitations (Interventions): Currently experiencing physical symptoms, which she states are related to her medication changes. Patient Identified Trmt Goals: " I want to feel better." Discharge Plan: [facility] Problem/Goals #1 Problem #1: suicidal ideation Goal (Short Term): Today I will attend 2 groups Today I will identify 2 stressors Today I will identify 2 positive supports Today I will work on recognizing 3 emotions I am feeling Goal (Web Ui Software Engineer): Be free of suicidal thoughts/attempts Develop 3 coping skills to deal with depression Identify 3 positive support systems to call in crisis Develop a crisis plan with 3 pepper people Identify 2 positive traits per week about myself Identify 2 things I have to look forward to Identify 2 positive people in my life and 1 thing I appreciate about them Interventions: Learn ways to manage depressive symptoms accordingly and identify positive supports to manage life stressors and mood fluctuations. Modalities: Encourage groups, education on depression, provide CBT treatment, family meeting. DSM5/PS Stressors/Medical Prob Diagnosis' (DSM 5, Stressors, Medical): F332. Major Depressive Disorder, recurrent, severe with anxious Distress and F43.10 PTSD (Per IOP D/C Note) Current GAF: 25 Treatment Team - Responsibilities of members of the treatment team include: - Medication Management- MD or RUNNER WORKER - Medication Administration and Monitoring- Nurse - Group Therapy- Occupational Therapist - 1:1 Therapy,Disch Planning,family involvement-Group Leader
[2017-02-08 12:29] VITALS: BP 124/69
--- NOTE | 2017-02-08 14:08 | NUR ---
PT IS MINIMALLY OUT IN THE COMMUNITY INTERACTING WITH PEERS/STAFF. PT COMPLAINING OF SEVERE STOMACH ACHES AND PAIN-- RN NOTIFIED. FREQUENTLY TRYING TO LAY DOWN AND REST. TRYING TO ATTEND GROUPS BUT WILL LEAVE IN THE MIDDLE IF NOT FEELING WELL. VS ARE STABLE AND DENIES SI/HI.
--- NOTE | 2017-02-08 14:30 | NUR ---
PT PUT IN A 3 DAY REQUEST FOR TERMINATION OF HER VOLUNTARY. SR SAMAYOA NOTIFIED
[2017-02-08 16:01] VITALS: BP 109/60
--- NOTE | 2017-02-08 17:54 | CPS MD/APRN INITIAL ASSE PSYCH ---
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 Chief Complaint: "I feel like I wanna ." Reaction to Hospitalization: ambivalent but hoping for help History of Present Illness Onset of Illness: Patient today me she began to feel much worse only within the past few weeks; she cites the slow ongoing Paxil taper as contributing to this, plus building premenstrual tension as her period is overdue (has been perimenopausal for some time). The way she has been feeling as a consequence of the above sent her into a desperate panic eventuating in suicidality Circumstances Leading to Admission: (see above under Onset of Illness) Problem(s) Justifying Need for Admission: --intense suicidality and rising impulsivity with history of life-threatening overdose in 11/2015 requiring stabilization in [facility] ICU Other HPI: Patient experienced similar "withdrawal" symptoms in the past when trying to taper away Paxil which patient says used to work but more recently only helps "sometimes" with her depressive moods and suicidality. She has been working with Clarisse Hannah APRN for some months trying to switch over from Paxil to Lexapro but suffering intensification of multiple somatic complaints (many of them G.I.-related) with each decrease in Paxil, especially below 20mg/day (or increase in Lexapro above 5mg daily). Past Psychiatric History Past Diagnosis(es)- if any: (according to [facility] discharge summary from -01/14/2016 admission): MDD, recurrent, severe, with panic symptoms Unspecified Panic Disorder hx of PTSD hx of dramatic and prolonged Paxil withdrawal symptomatology/syndrome Past Precipitating Factors- if any: as noted above, attempts to lower away Paxil appear to have precipitated current [facility] admission, as well as that of 01/05/2016 - Include inpatient and outpatient treatment Treatment History: Prior to [facility] admission in 11/2015 (and subsequent overdose which required admission to [facility] ICU and treatment in the [facility] prior to re-admission to [facility] in 12/2015) patient denies having been admitted to psychiatric hospital units "in 20 years," though she has engaged in extensive outpatient treatment in subsequent years. History of Suicide Attempts or Gestures recent very serious suicide attempt via overdose in early 2015 requiring admission to the ICU at [facility] Substance Abuse History: denied Allergies: Coded Allergies: amoxicillin (Mild, HIVES 01/03/16) clavulanic acid (Mild, HIVES 01/03/16) latex (Mild, HIVES 01/03/16) procaine (Intermediate, HYPERTENSION 01/06/16) benztropine (MYDRIASIS FOR 1 MONTH 01/06/16) Home Med List: (according to most recent outpatient prescriber's progress note of 02/04/2017)): Paxil, 12mg liquid (6ml) nightly at HS Lexapro, 10mg daily Seroquel XR, 50mg nightly Seroquel (immediate release), 25mg at HS - Include any medical condition(s) that may - impact the patient's recovery/remission Past History Medical History Neurological: NONE EENT: allergies Cardiovascular: hyperlipidemia Respiratory: NONE Gastrointestinal: NONE, gastric distress related to attempts to taper away Paxil Hepatic: NONE Renal: NONE Musculoskeletal: NONE Psychiatric: anxiety, depression, 20YRS AGO-SELF INJURIOUS CUTTING TO LEFT ARM Endocrine: vitamin D deficiency Blood Disorders: NONE, anemia Cancer(s): NONE PRECISION DANCER/Reproductive: SHAR-MENOPAUSAL sx severe cramping and heightened anxiety/ tension/irritable SHAR-MENOPAUSAL Other Medical Hx: Patient had a mild normocytic anemia during recent [facility] admission but H&H normal in E.D. 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 History of MRSA: No History of VRE: No History of CDIFF: No Isolation History: Standard Influenza Vaccine: 09/07/16 Surgical History Surgical History: non-contributory Psychiatric Family/Social Hx Family History Psychiatric Illness: sister was bipolar Substance Use: sister was polydrug addicted, paternal uncle used heroin Suicides: paternal uncle suicided via heroin overdose Other Family History: noncontributory at this time Social History Living Situation: (see above under Identifying Information) Significant Relationships (family/friends): previous relationships with men and women; has considered herself "bisexual"; she is close to her mother with whom she relates and who she looks out for/cares for Education: some college Vocation/Occupation: has 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 - #1 Recognizing dangerous situations. - #2 Coping Skills. - #3 Basic information about quitting. Status of Tobacco Cessation Counseling: N/A B/C NO TOB USE Cessation Med Status: No Tobacco Use last 30d Alcohol Screening - ETOH screen POS if BAL >=80 or Audit-C>= M4/F3 Audit-C Score from Diag Assess: 0 Blood Alcohol Level: Laboratory Tests 02/07 1303 Toxicology Serum Alcohol (<10 MG/DL) < 10.0 Alcohol Use Screening Results: Neg per Audit C &/or BAL - If ETOH counseling indicated - the following topics are required. - #1 Express concern about the patient's - drinking at unhealthy levels, include informing - of national norms for moderate drinking: - men <= 14 drinks/week, max 4 drinks/occasion - women <= 7 drinks/week, max 3 drinks/occasion - #2 Providing feedback, including linking alcohol to - negative physical effects (liver injury, hypertension) - negative emotional effects (relationship problems and - depression) - negative occupational consequences (reduced work - performance) - #3 Advising the patient to abstain from alcohol or - to drink below national norms for moderate drinking - (as listed above). Status of ETOH Use Counseling: N/A B/C NO ETOH Use Metabolic Screening - Screen if on a Neuroleptic Medication - Metabolic screening should include: - Blood Pressure, BMI, Glucose or Hgb A1c, & a - Lipid profile from within the past 365 days. Metabolic Screening () Not Applicable, patient not on a neuroleptic. OR ([X]) Patient on a neuroleptic(s) . Enter below results for Glucose or Hemoglobin A1C, and lipid panel if obtained during the last 365 days. BMI: 25.600 Blood Pressure: 109/60 Laboratory Results (If applicable): glucose = 79 (on 02/07/2017) cholesterol, triglycerides, HDL and LDL (all pending from 02/07/2017) Exam and Plan Mental Status Examination Ambulation Status: without assistance Appearance: neat and well-groomed Attitude towards examiner: somewhat ambivalent initially but eventually more positive and able to work together Psychomotor activity: normal Behavior: appropriate Quality of speech: normal Affect: mildly constricted and tense Mood: depressed, anxious, dysphoric, irritable Suicidal Ideation: acknowledged suicidality immediately 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 but feels safer here on [facility] and was able to provide a safety pledge/promise Homicidal Ideation: denied Hallucinations: denied Paranoid/Delusional Material: denied; no evidence of; though somewhat mildly distrusting at first, no clear paranoia Difficulties with thought organization: not evident Insight: limited but fair and likely to improve Judgment: fair but limited by current level of anxiety/panic Orientation: full Cognition: intact Memory Function: intact Estimate of intellectual functioning: average Assets/Strengths Patient Identified Assets/Strengths: --has close relationship with mother and is helpful to same (mother general stable but arthritic) --had managed to stay out of psych hospital units for over 20 years (but has had 3 admissions in last one year) --has never smoked --has not had any alcohol or other drug problems (her sister was a "major" drug user/abuser) Impression/Plan Impression and Plan: Patient is having surprizingly similar presenting symptoms to those at the time of her most recent [facility] admission, -01/14/2016; whereas, she has wanted to wean off of her long-effective Paxil regimen due to it working less reliably in recent years AND because she has had so many trouble getting off of it ("and I don't want to be a drug addict") the considerable difficulty she has experienced trying to come off it over an extended period may speak at least partly to its relative benefit to her. I suggested going for augmentation of Paxil rather than continuing to struggle to get off it. We should have a family meeting and refer patient to behavioral health IOP prior to her resuming her ongoing treatment with prescriber, Clarisse Hannah APRN (in [facility]) and therapist ( in [facility] ) Josefa Araiza LCSW - Include all active medical diagnosis that require tx DSM 5 Diagnosis(es): Unspecified Depression, recurrent with significant anxiety/panic symptoms but nonpsychotic Unspecified Anxiety Disorder with panic symptoms hx of PTSD prolonged and severe Paxil withdrawal syndrome - Initial Tx Plan for Active Psych & Medical Conditions Treatment Plan: --stabilize Paxil initially at 20mg/day --add low dose Wellbutrin (immediate release) as augmentation --consider trial of low dose [place] augmentation (have already begun discussion with patient on this subject) --at least temporarily increase Klonopin to 1mg 2x/day to treat escalating panic anxiety -try to limit dose of Seroquel and use only the immediate release formulation --try to arrange family meeting or meeting with the patient and a close friend prior to discharge --try to refer patient to the behavioral health IOP (and mobilize her to increased socialization and back to gainful employment) - Factors that would help patient function - in a less restrictive setting. Factors: --early reduction in current very high level of anxiety and somatic discomfort --rapid response to low dose Wellbutrin augmentation without overstimulation/ activation
[2017-02-08 20:04] VITALS: BP 128/82
--- NOTE | 2017-02-08 21:11 | NUR ---
PT IS COOPERATIVE WITH STAFF AND PEERS, AND COMPLIANT WITH UNIT RULES. PT APPEARS ANXIOUS, STATING THAT SHE FELT CLAUSTROPHOBIC UPON ASKING HER WHAT THE MATTER WAS. PT DID SEEM TO CALM THE EVENING PROGRESSED, SPENDING MOPRE TIME IN [place] AND INTERACTING WITH OTHERS. MOOD IS STABLE, AFFECT IS EUTHYMIC TO FULL RANGE, APPEARS ANXIOUS AT TIMES, COMMUNICATION IS ORGANIZED AND APPEARS NORMAL IN ALL RESPECTS, AND APPETITE IS NORMAL. PT DENIES SI AT THIS TIME.
--- NOTE | 2017-02-09 06:19 | NUR ---
PT APPEARED TO SLEEP. PT HAS A 3 DAY LETTER FROM 1300 ON 02/08.
[2017-02-09 07:39] VITALS: BP 133/77
[2017-02-09 12:02] VITALS: BP 126/77
--- NOTE | 2017-02-09 13:32 | NUR ---
PT IS COMPLIANT AND COOPERATIVE. PT IS OUT IN COMMUNITY INTERACTING WELL WITH STAFF AND PEERS. PT IS ATTENDING GROUPS. PT IS FOCUSED ON MEDICAL PROBLEMS AND NOT TALKING MUCH ABOUT MENTAL PROBELMS. PT MOOD IS STABLE WITH A CONSTRICTED AFFECT. PT DENIES SI THOUGHTS.
--- NOTE | 2017-02-09 15:23 | CP SOUTH PROGRESS NOTE PSYCH ---
Psych (Inpt) Progress Note Progress Note Include the following elements, when applicable: Involvement in the active treatment of the patient with behavioral observations of the patient and the patient's response to the treatment. Review of the ongoing treatment process in the context of the treatment plan. Indication of how multi-disciplinary staff members are carrying out the treatment plan. Plans for future interventions and recommendations for revision of the treatment plan. Liaison with other physicians/providers. Progress Note: PSYCHIATRIST NOTE, 02/09/2017: I discussed this patient's progress to date, current mental status, treatment and discharge planning with staff team today in the daily morning ITTM and also met with her again myself in individual session. Patient appeared to me to be slightly less overwhelmed, irritable and at wit's end today, not more jumpy, shaky or generally uncomfortable with the addition of low dose Wellbutrin (75mg of immediate release form) and stabilization of Paxil dose at 20mg/day; this itself is gratifying given her sensitivity to even minor medication changes /adjustments by history; for the latter reason, and because patient seems to be progressing at this point, I will not make any changes in dosages of Wellbutrin or Paxil at this time. Patient does wish to discontinue the Lexapro at this point and had refused to take it this morning; I will discontinue it. I have increased Klonopin, at least temporarily, and I think this is helping patient manage other medication changes; we discussed at length the abuse and addiction issues involved with any benzodiazepine; patient is well aware of risks and will want to begin tapering dose within a week or two should other med changes begin to make sustained improvements in her anxiety/dysphoria/panic/irritability.
[2017-02-09 15:51] VITALS: BP 124/71
--- NOTE | 2017-02-09 16:07 | SOCIAL WORKER PROG NOTE PSYCH ---
Social Work Progress Note Progress Note Patient had visit today from peer services and care management from [facility]. Patient reported that she had never met them before but was appreciative of them coming to the hospital to visit her. They met with patient and offerred services that are available to her free of cost through [facility] once she returns home to the community. They discussed offering help through daily support, applying for disability, applying for employment, food stamps, and being available to talk during normal business hours whenever any issues arise. Patient reported feeling grateful for having these services and is looking forward to utilizing them. Patient denies SI at present but reports anxiety over starting new medication, Wellbutrin. Patient is concerned of physical symptoms she may experience due to bad reactions from other medications in the past. She reports being willing to continue to try it while in the hospital. Patient reported that she resides with her mother and feels that her mother is not doing well at home without her. Patient is concerned being away form her mother and hopes to discharge before the weekend. I informed her that this is very likely, we just need to continue to monitor med changes and arrange for safe aftercare plan. Patient wishes to return to therapy with Josefa Arango 2x week and continue med management with OPS. I left message for Josefa asking for returned call to discuss patients treatment. I scheduled patient with OPS 02/24/17 @9am with Usha VILCHIS and 03/04/17 @8:30am with Clarisse HOLLIDAY.
[2017-02-09 19:39] VITALS: BP 111/68
--- NOTE | 2017-02-09 20:41 | NUR ---
PT IS CALM, COOPERATIVE WITH STAFF AND PEERS, AND COMPLIANT WITH UNIT RULES. PT IS OFTEN IN [place], INTERACTING WELL WITH OTHERS. MOOD IS STABLE, AFFECT APPEARS EUTHYMIC TO FULL RANGE, CAN AT TIMES APPEAR SLIGHTLY ANXIOUS, COMMUNICATION IS ORGANIZED AND APPEARS NORMAL IN ALL RESPECTS, AND APPETITE IS NORMAL. PT DENIES SI AT THIS TIME.
--- NOTE | 2017-02-10 06:31 | NUR ---
PT APPEARED TO SLEEP. 3 DAY LETTER SUBMITTED 02/08 AT 1300.
[2017-02-10 07:42] VITALS: BP 117/71
[2017-02-10 12:06] VITALS: BP 114/69
--- NOTE | 2017-02-10 13:20 | SOCIAL WORKER PROG NOTE PSYCH ---
Social Work Progress Note Progress Note Patient presents calm with normal mood and affect congruent to mood today. Patient reports eagerness to return home tomorrow and feeling ready to do so. She reported not feeling like she is getting much out of being here at this time and mainly only came in due to her taper from paxil. Patient plans to return to therapy with Josefa Carreno 2x week and has appointments arranged for OPS. Patient reports some anxiety today over an incident that occurred with another patient making derogatory comments about a patients gender/ sexual preference. Patient reported feeling offended since she identifies herself as a lesbian and had to raise her voice to tell the patient to stop with his comments. Patient is trying to not take the comments personally and was appropriate with verbalizing her feelings towards the incident.
--- NOTE | 2017-02-10 13:24 | NUR ---
PT IS COMPLIANT AND COOPERATIVE WITH UNIT RULES. PT IS OUT IN COMMUNITY INTERACTING WELL WITH STAFF AND PEERS. PT IS ATTENDING GROUPS. PT MOOD IS STABLE WITH A FULL RANGE AFFECT. PT REPORTS SOME ANXIETY AT TIMES. PT DENIES SI THOUGHTS.
[2017-02-10 15:35] VITALS: BP 110/79
--- NOTE | 2017-02-10 16:20 | CP SOUTH PROGRESS NOTE PSYCH ---
Psych (Inpt) Progress Note Progress Note Include the following elements, when applicable: Involvement in the active treatment of the patient with behavioral observations of the patient and the patient's response to the treatment. Review of the ongoing treatment process in the context of the treatment plan. Indication of how multi-disciplinary staff members are carrying out the treatment plan. Plans for future interventions and recommendations for revision of the treatment plan. Liaison with other physicians/providers. Progress Note: PSYCHIATRIST NOTE, 02/10/2017: I discussed this patient's progress to date, current mental status, treatment and discharge planning with staff today in the daily morning ITTM and also met with her again in individual session. Patient continued her somatization, describing multiple "stomach" and general body discomforts sitting comfortably without the slightest evidence of actual somatic distress. When I remarked that her extreme sensitivities to minor medication changes are "frustrating," she spun into an emotional/enraged tirade that I was telling her she "is a hopeless case" or "someone not worth helping." I offered that her physical sensitivities make it very difficult to get beyond physical complaints to the psychological issues she has told me she has and wishes to deal with and master. Patient then went on to once again describe her "premenopausal" issues over the past 2+ years which have caused her to regress from a sound psychological state on a stable dose of Paxil. I suggested she might do well to obtain further consultation with regard to PMS and PMS-related issues during perimenopause from a subspecialist in that area of medicine that possibly all our psychotropic medication manipulations "are not working" because the cause of her distress lies elsewhere; she questioned whether she might do better, or at least just as well, on "no" medications while other avenues of investigation are explored. For the present, patient decided to continue on Paxil, 20mg/day at 6pm, Klonopin, 1mg 2x/day, low dose regular/PRN Seroquel and the same low dose of Wellbutrin (immediate release form), 75mg/day in AM. She was worried about coming off 10mg of Lexapro daily "all at once" and noted side effects from this medication not starting until increase from 5mg to 10mg/day, and we decided to restart Lexapro, 5mg/day, at least temporarily. Patient is still planning for discharge tomorrow, 02/11/2017, to resume her consultations in OPS with Clarisse Hannah APRN, and to see Josefa Araiza LCSW, again privately in twice weekly psychotherapy.
[2017-02-10 19:39] VITALS: BP 120/96
--- NOTE | 2017-02-10 22:18 | NUR ---
PT IS STABLE YET TEARFUL AT TIMES. UPSET WITH HER MEDICATIONS YET LOOKING FORWARD TO DC TOMORROW. SPOKE ABOUT HOW SHE IS GOING TO IOP AFTER HER INPATIENT STAY AND IS EXCITED FOR THIS. HAS A POSTIIVE OUTLOOK ON THE FUTURE DESPITE BEING UPSET ABOUT HER MEDICATIONS. VS ARE STABLE AND DENIES ANY SI/HI TO THIS MHW.
[2017-02-11 07:43] VITALS: BP 108/65
--- NOTE | 2017-02-11 10:40 | SOCIAL WORKER PROG NOTE PSYCH ---
Social Work Progress Note Progress Note Patient to discharge the hospital today. Patient reports feeling ready to discharge home today. Patient is able to contract for safety today and denies SI /HI/AH/VH. Patient plans to return to 2x week individual therapy with Josefa Rodriguez LCSW and has next appointment on Tuesday02/14/17 @10am. Patient also will re-engage with OPS and has intake on 02/15/17 @12:30pm with Alon and med appointment with Clarisse Hannah APRN on 02/17/17 @4pm.
[2017-02-11] MEDS ORDERED: BUPROPION HCL75 M1 PO (10:50)
[2017-02-11] MEDS ORDERED: PAXIL20 M1 PO (10:50)
[2017-02-11] MEDS ORDERED: SEROQUEL50 M1 PO (10:51)
--- NOTE | 2017-02-11 10:55 | NUR ---
will be discharged today to [facility] with follow up at OPS and previous therapist. Mood is stable, full range of affect. denied thoughts of self harm when asked. will be given education on suicide prevention and depression.
--- NOTE | 2017-02-11 12:19 | CP SOUTH PROGRESS NOTE PSYCH ---
Psych (Inpt) Progress Note Progress Note Include the following elements, when applicable: Involvement in the active treatment of the patient with behavioral observations of the patient and the patient's response to the treatment. Review of the ongoing treatment process in the context of the treatment plan. Indication of how multi-disciplinary staff members are carrying out the treatment plan. Plans for future interventions and recommendations for revision of the treatment plan. Liaison with other physicians/providers. Progress Note: PSYCHIATRIST NOTE (DISCHARGE), 02/11/2017: I discussed this patient's progress to date, current mental status, treatment and discharge plans with staff team today in the daily morning ITTM and also met with her again myself in individual session prior to discharging her to resume her outpatient treatment/medication management with Clarisse Hannah APRN, in OPS on 02/17/2017 at 4pm; she will also have an OPS intake with Alon on 02/15/2017 at 12:30pm and continue twice weekly psychotherapy appointments privately with Josefa Araiza LCSW, beginning again on 02/14/2017 at 10am. Patient is currently euthymic, denying significant anxiety, without evidence of suicidal or homicidal ideation, plans, intent or impulses and well aware of her safety plan should she ever in future come to believe herself at acute risk of self-harm. Patient appears to have a better sense of what I was trying to get across to her earlier during this admission, partly that it is unfortunate that her sensitivity to medication side effects and perimenopausal problems are thwarting her efforts to better understand herself, gain insight and increased ability to function in a workplace environment. Once the aforementioned physical issues are under better control she will be able to utilize her considerable intelligence and positive motivation to advance her real goals in life (e.g. 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 I have called into [facility], [place], [place]., on day of discharge: Paxil, 20mg: i daily at suppertime (20mg/day); #14 with no refill (anti-panic/ anti-depressant) Wellbutrin, 75mg--immediate release): i daily in AM (75mg/day); #14, no refill (anti-depressant) Seroquel, 50mg: i nightly at HS (50mg/night); #14 with no refill (reduce racing thoughts at HS) Seroquel, 25mg: i PRN anxiety/racing thoughts (max. 25mg/day); #14 with no refill (patient is currently on a maximum dose of Seroquel, 50-75mg daily) Klonopin, 1mg: i 2x/day (2mg/day); #28 with no refill(short-term control panic symptoms/attacks) patient is also taking and has adequate supply at home to take: atorvastatin, 10mg daily at 5pm (lipid control) (patient does not smoke cigarettes or drink alcohol)
--- NOTE | 2017-02-11 12:20 | DISCHARGE SUMMARY REPORT-PSYCH ---
Visit Information Visit Dates/Diagnosis' Admission Date: 02/07/17 Discharge Date: 02/11/17 Reason for Admission: "I feel like I wanna' ." Psy Discharge Primary Diag: Unspecified Depression Unspecified Anxiety Psy Discharge Secondary Diag: General Anxiety Disorder (with prominent panic symptoms), borderline personality organization, hx of PTSD, hx of unusually long and prominent peroxitine withdrawal, by history Hospital Course Significant Lab Findings: glucose = 79; GILMAR = less than 10.0; urine for drugs of abuse--negative; for further details of all normal range laboratory data from this admission, see the electronic medical record Course Complications: none Consultations: patient was seen for an admission medical H&P by Sanjay Jesus M.D., and followed medically during this admission by the hospitalist staff/[facility] medical attending physicians Allergies: Coded Allergies: amoxicillin (Mild, HIVES 01/03/16) clavulanic acid (Mild, HIVES 01/03/16) latex (Mild, HIVES 01/03/16) procaine (Intermediate, HYPERTENSION 01/06/16) benztropine (MYDRIASIS FOR 1 MONTH 01/06/16) Hospital Course/TX Response: (see also, admission assessments, daily M.D./METAL SPRAYER MACHINED PARTS and REMEDY DEVELOPER progress notes, all of which are available on the electronic medical record) Initially, we noted that patient was experiencing surprizingly similar presentation to those she presented with at the time of her most recent [facility] admission over a year ago (see discharge summary from admission of -01/14/2016 ). She has sought to wean off her long-effective Paxil regimen due to her perception that it has not been as reliably effective in recent years. Her desire to come off Paxil had been reinforced by her belief that because she has had so much difficulty getting off it "means" she is "addicted" to it and a fervent desire on her part to "not be addicted to anything." Given previous effectiveness of Paxil, I recommended that she go for augmentation of this medication first rather than giving up on it altogether yet. Patient agreed to maintaining a dose of Paxil at 20mg/day as below that she had experienced more "symptoms of withdrawal." Patient agreed to augmentation with low dose Wellbutrin and an at least temporary increase in dose of Klonopin to 2mg/day to help control recent/current panic-like symptoms. Low dose Seroquel was helpful and not excessively sedating and also served to augment Paxil. 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 Anxiety, panic, anger, suicidality gradually resolved. By date of discharge, patient was close to euthymia, denying significant level of anxiety, without any evidence of current suicidal or homicidal ideation, plans, intent or impulses and well aware of her safety plan should she ever in future come to believe herself at acute risk of harming herself or others. Patient appeared to have acquired a better sense of what I had been trying to get across to her earlier on during this admission, that it is unfortunate her sensitivity to medication side effects and perimenopausal issues have been at least partially thwarting her efforts to better understand herself, gain insight and enhance her ability to function more effectively in an academic/workplace environment. Once the aforementioned physical issues are under better control patient should be able to utilize her considerable intelligence and positive motivation and ideals to advance her real goals in life. Discharge HBIPS - Tobacco Use Treatment Offered Post DC Medications Offered: NA-No Tob Use >30 days Post DC Tobacco Treatment Plan: NA-No Tobacco use >30days - EtOH/Drug Use D/O Treatment Offered Post DC Medications Offered: NA-No EtOH/Drug Use D/O Post DC EtOH/SubAbuse TX Plan: NA-No EtOH/Drug Use D/O Metabolic Screening - Screen if on a Neuroleptic Medication - Metabolic screening should include: - Blood Pressure, BMI, Glucose or Hgb A1c, & a - Lipid profile from within the past 365 days. Metabolic Screening () Not Applicable, patient not on a neuroleptic. OR ([X]) Patient on a neuroleptic(s) . Enter below results for Glucose or Hemoglobin A1C, and lipid panel if obtained during the last 365 days. BMI: 25.600 Blood Pressure: 108/65 Laboratory Results (If applicable): glucose = 79 (all drawn on 02/07/2017) cholesterol = 182 triglycerides = 67 HDL = 57 LDL = 112 Discharge Instructions General Discharge Information Discharge Medications: Discharge Medications (dose, route, frequency, indications): I have called into [facility], [place], [place]., on day of discharge: Paxil, 20mg: i daily at suppertime (20mg/day); #14 with no refill (anti-panic/ anti-depressant) Wellbutrin, 75mg--immediate release): i daily in AM (75mg/day); #14, no refill (anti-depressant) Seroquel, 50mg: i nightly at HS (50mg/night); #14 with no refill (reduce racing thoughts at HS) Seroquel, 25mg: i PRN anxiety/racing thoughts (max. 25mg/day); #14 with no refill (patient is currently on a maximum dose of Seroquel, 50-75mg daily) Klonopin, 1mg: i 2x/day (2mg/day); #28 with no refill(short-term control panic symptoms/attacks) patient is also taking and has adequate supply at home to take: atorvastatin, 10mg daily at 5pm (lipid control) (patient does not smoke cigarettes or drink alcohol) CC: Report Status: Signed Report #: [id number] Page[p pg] Multiple Neuroleptics: ([X]) Not Applicable OR Document below three failed attempts at monotherapy, or a plan to taper to monotherapy, or augmentation of Clozapine. () Patient's Diet: regular Patient's Activity: without restrictions DC Disposition: to home Recommendations: I would recommend tapering away Seroquel and Klonopin slowly following an interval of outpatient stabilization and advise caution in any adjustment in current doses of Paxil or Wellbutrin given the patient's particular sensitivity to even what appear to be very small changes in dosing. I also strongly advised patient to make an appointment in the near future to consult with her channel lip wetter with regard to her perimenapausal problems/symptoms and a logical plan to reduce/control them going forward, both to enhance her physical well- being and help her to be able to focus more fully and effectively on her psychosocial issues and goals for the future. Referred To: Patient was referred directly back to regular appointments with her prescriber, Clarisse Hernandez APRN, who she is currently scheduled to see next on 02/17/2017 at 4pm; she will also have an intake appointment with Bridget Gutiérrez LCSW, on 02/15, at 12:30pm and resume her regular twice weekly psychotherapy with Josefa Araiza LCSW, on 02/14/2017 at 10am. As noted above under Recommendations, I also urged patient to make an appointment to consult with her own channel lip wetter in the near future to discuss further what might be done/tried to help alleviate or at least significantly reduce her perimenopausal-related symptomatology. Copies To: CLARISSE HERNANDEZ APRN; KENNETH VILCHIS,BEKA GUTIÉRREZ LCSW,BRIDGET WALLACE
== END 2017-02-11 12:01 | DRG 754 ==
LOC: ERH 11:02 → ERHI 20:21 → ENPENDDIS 20:21 → CP SOUTH 20:21 → ERHI 02-08 00:13 → CP SOUTH 02-08 00:14
PROVIDERS: Emergency Medicine; ADMIT Psychiatry & Neurology Addiction Medicine
DX: F32.9 Major depressive disorder, single episode, unspecified (principal); F41.9 Anxiety disorder, unspecified
CPT/HCPCS: 74176; 80307; 90853; G0480; J3101

== ENCOUNTER 2017-03-09 11:45 | Inpatient (IN) | payer OTHER ==
[~2017-03-09] VITALS: Ht 160 cm; Wt 67.2 kg
[~2017-03-09 11:45] MED LIST changes: +BUPROPION HCL75 M1 PO; +ESCITALOPRAM OXA5 MG PO; +FERROUS SULFAT325 M3 PO; +FLUOXETINE HCL20 M2 PO; +KLONOPIN1 M1 PO; +LOVASTATIN10 M1 PO; +PAXIL10 MG/5 M1 PO; +PAXIL20 M1 PO; +QUETIAPINE FUMA25 M1 PO; +SEROQUEL XR50 M1 PO; +SEROQUEL50 M1 PO
[2017-03-09 12:14] LABS: ABSOLUTE BASOPHIL COUNT 0 /CUMM (0.0-0.2); ABSOLUTE EOSINOPHIL COUNT 0.5 /CUMM (0.0-0.7); ABSOLUTE LYMPH COUNT 1.9 /CUMM (1.2-3.4); ABSOLUTE MONOCYTE COUNT 0.5 /CUMM (0.10-0.60); BASOPHIL % 0.6 % (0.0-2.0); GRANULOCYTE % 63.2 % (42.2-75.2); HEMATOCRIT 37.7 % (37-47); MEAN CORPUSCULAR HGB CONC 34.5 G/DL (33.0-37.0); MEAN PLATELET VOLUME 7.3 FL (7.4-10.4); PLATELET COUNT 307 /CUMM (130-400); RBC DISTRIBUTION WIDTH 12.6 % (11.5-14.5); RED BLOOD CELL CT 4.05 /CUMM (4.20-5.40); WHITE BLOOD CELL COUNT 7.9 /CUMM (4.8-10.8)
--- NOTE | 2017-03-09 12:23 | ED PSYCHIATRIC COMPLAINT ---
See Addendum History of Present Illness General Chief Complaint: Psychiatric Related Complaint Stated Complaint: +SI Source: patient, family, old records Exam Limitations: no limitations Vital Signs & Intake/Output Vital Signs & Intake/Output Vital Signs Date Time Temp Pulse Resp B/P B/P Pulse O2 O2 Flow FiO2 Mean Ox Delivery Rate 03/10 0558 98.6 102 20 117/82 98 Room Air 03/10 0228 97.3 73 16 120/77 97 05/03 2330 70 16 119/63 96 05/03 2100 97.2 75 16 120/69 96 05/03 1847 98.0 70 20 115/58 96 Room Air 03/09 1735 100 110/70 05/ 1506 97.0 90 22 114/78 96 Room Air 03/09 1216 98 Room Air / 1147 98.6 96 20 132/95 961 Room Air ED Intake and Output 03/10 0000 03/09 1200 Intake Total Output Total Balance Patient 144 lb Weight Weight Estimated Measurement Method Allergies Coded Allergies: amoxicillin (Mild, HIVES 01/03/16) clavulanic acid (Mild, HIVES 01/03/16) latex (Mild, HIVES 01/03/16) procaine (Intermediate, HYPERTENSION 01/06/16) benztropine (MYDRIASIS FOR 1 MONTH 01/06/16) Triage Note: PT TO ED C/O SI THOUGHTS, DEPRESSION AND CONSTANT CRYING X 3 DAYS. PT DENIES PLAN. DENIES HI. STATES SHE CAN'T REGULATE HER MEDS. CRYING IN TRIAGE. DENIES DRUG USE OR ETOH USE. PT BROUGHT TO SINGH WITH FRIEND. Triage Nurses Notes Reviewed? yes Onset: 3 days Duration: day(s):, constant, continues in ED, getting worse Timing: recent history Severity: severe Associated Symptoms: anxiety, impaired concentration, insomnia, suicidal ideation LMP (ages 10-50): unknown : No Patient currently breastfeeds: No HPI: Patient has had difficulty weaning off of Paxil and over the last 3 days has become despondent and depressed with insomnia anorexia thoughts of suicide without a plan. He denies fever chills nausea vomiting diarrhea abdominal pain chest pain shortness breath headache dysuria rash bleeding homicidal ideation hallucination. (MARCOS KINNEY,ALESSANDRO) Reconcile Medications Bupropion HCl 75 MG TABLET 75 MG PO 1000 augmentation of SSRI therapy Cholecalciferol (Vitamin D3) 1,000 UNIT TABLET 1 TAB PO DAILY SUPPLEMENT ( Reported) Clonazepam (Klonopin) 1 MG TABLET 1 TAB PO BIDP PRN ANXIETY (Reported) Ferrous Sulfate 325 MG (65 MG IRON) TABLET 1 TAB PO DAILY SUPPLEMENT ( Reported) Lovastatin 10 MG TABLET 1 TAB PO QPM CHOLESTEROL (Reported) Multivitamin (Multiple Vitamins) 1 EACH TABLET 1 TAB PO DAILY SUPPLEMENT ( Reported) Paroxetine HCl 30 MG TABLET 1 TAB PO DAILY ANXIETY (Reported) Quetiapine Fumarate (Seroquel) 25 MG TABLET 1 TAB PO QPM PRN SLEEP (Reported) Quetiapine Fumarate (Seroquel) 50 MG TABLET 50 MG PO 2200 calm racing thoughts (ANGEL KINNEY,IVORY) Past History Travel History Traveled to [place] past 21 day No Medical History Any Pertinent Medical History? 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 History of MRSA: No History of VRE: No History of CDIFF: No Isolation History: Standard Influenza Vaccine: 09/07/16 Surgical History Surgical History: non-contributory Psychosocial History Who do you live with Patient and family Services at Home None What is your primary language Italian Tobacco Use: Never used ETOH Use: denies use Illicit Drug Use: denies illicit drug use Family History Family History, If Any: MOTHER Relation not specified for: FH: cancer Hx Contributory? No (ALESSANDRO RODRÍGUEZ MD) Review of Systems Review of Systems Constitutional: Reports: no symptoms. EENTM: Reports: no symptoms. Respiratory: Reports: no symptoms. Cardiovascular: Reports: no symptoms. GI: Reports: no symptoms. Genitourinary: Reports: no symptoms. Musculoskeletal: Reports: no symptoms. Skin: Reports: no symptoms. Neurological/Psychological: Reports: see HPI, anxiety, confusion, depressed, emotional problems. Hematologic/Endocrine: Reports: no symptoms. Immunologic/Allergic: Reports: no symptoms. All Other Systems: Reviewed and Negative (ALESSANDRO RODRÍGUEZ MD) Physical Exam Physical Exam General Appearance: well developed/nourished, alert, awake, anxious, severe distress, thin Head: atraumatic, normal appearance Eyes: Bilateral: normal appearance, PERRL, EOMI. 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 yes 1 Depression/Hopelessness? yes 2 Previous Attempts/Psych Care yes 1 Rational Thinking Loss? yes 2 Social Support? has support 0 Stated Future Intent? yes 2 Total 8 SAD PERSONS Done? yes (ALESSANDRO RODRÍGUEZ MD) Progress Differential Diagnosis: drug intoxication, drug overdose, drug withdrawal, electrolyte abnormality, hypoglycemia Plan of Care: Orders Procedure Date/time Status Regular Diet 03/09 L Active Continuous Observation Monitor 03/09 1154 Active URINE 03/09 1154 Complete URINE DRUG SCREEN FOR ER ONLY 03/09 1154 Complete ETHANOL 03/09 1154 Complete COMPREHENSIVE METABOLIC PANEL 03/09 1154 Complete CBC WITHOUT DIFFERENTIAL 03/09 115 Complete ED CRISIS PSYCH CONSULT 03/09 1154 Active Current Medications Sig/Hortencia Start time Last Medication Dose Stop Time Status Admin Clonazepam 1 MG BID 03/09 2200 AC 03/10 (Klonopin 1MG Tab) 03/16 2159 0847 Laboratory Tests 03/09/17 1206: Anion Gap 12, Estimated GFR > 60, BUN/Creatinine Ratio 20.0, Glucose 100 H, Calcium 8.9, Total Bilirubin 0.3, AST 22, ALT 32, Alkaline Phosphatase 54, Total Protein 7.2, Albumin 4.1, Globulin 3.1, Albumin/Globulin Ratio 1.3, CBC w Diff NO MAN DIFF REQ, RBC 4.05 L, MCV 93.0, MCH 32.0 H, RDW 12.6, MPV 7.3 L, Gran % 63.2, Lymphocytes % 23.6, Monocytes % 6.6, Eosinophils % 6.0 H, Basophils % 0.6, Absolute Granulocytes 5.0, Absolute Lymphocytes 1.9, Absolute Monocytes 0.5 , Absolute Eosinophils 0.5, Absolute Basophils 0, PUBS MCHC 34.5, Serum Alcohol < 10.0 03/09/17 1202: Urine Opiates Screen < 100.00, Methadone Screen 59, Barbiturate Screen < 60, Ur Phencyclidine Scrn < 6.00, Amphetamines Screen < 100, U Benzodiazepines Scrn 86, Urine Cocaine Screen < 50, Urine Cannabis Screen < 5.00, Urine Test NEGATIVE 3:33 pm 03/09/17 Patient signed out to me by Dr. Rodríguez. Pending crisis evaluation. (IVORY ORTIZ MD) Hand-Off Endorsed To: IVORY ORTIZ MD Endorsed Time: 1500 Pending: consult (ALESSANDRO RODRÍGUEZ MD) Hand-Off Endorsed To: JEFFERY FORD MD Endorsed Time: 2324 Pending: consult (BED PLACEMENT) (IVORY ORTIZ MD) Hand-Off Endorsed To: BRITTNEY LOBATO DO Endorsed Time: 0700 Pending: consult (JEFFERY FORD MD) Departure Departure Disposition: STILL A PATIENT Condition: Stable Clinical Impression Primary Impression: Generalized anxiety disorder Referrals: HARINDER COLON MD (PCP/Family) Departure Forms: Customer Survey General Discharge Information (ALESSANDRO RODRÍGUEZ MD) Departure Comments 03/10/17 9:15 am The patient was signed out to me by Dr. Ford. She is pending disposition by crisis. She is highly anxious and requesting Ativan. (BRITTNEY LOBATO DO)
[2017-03-09] MEDS ORDERED: PAROXETINE HCL30 M1 PO (14:25)
[2017-03-09] MEDS ORDERED: SEROQUEL25 M1 PO (14:26)
--- NOTE | 2017-03-09 17:48 | ED PSYCH CRISIS CONSULTATION ---
See Addendum Crisis Consult Basic Assessment Date of Consult: 03/09/17 Responsible Person/Accompanied By: self/friend Mary Jane Insurance Authorization: Insurance #1: Insurance name: [employer] Phone number: Policy number: [id number] Group number: Authorization number: ED Provider: Patient's ED Provider: ALESSANDRO RODRÍGUEZ MD Primary Care Physician: Patient's PCP: HARINDER COLON MD PCP's Current Psychiatrist: Clarisse Moreau APRN Chief Complaint: Psychiatric Related Complaint Patient's Quote: I'm having anxiety the past 3 days Present Illness: pt is a 46 yo female presenting to [facility] ED today with complaint of anxiety and suicidal ideation. Pt has a hx of inpatient treatment at [facility] and was last on [facility] in February 2017 for similiar complaint. Pt is also treated in [facility] and reports increased anxiety and depression is due to unsuccessful attempts to discontinue Paxil which she has taken past 25+ yrs. Pt reports this episode has been going on past 3 days and its causing her to be suicidal stating "no way i will survive". Pt presents in distress; tearful; anxious; hyperventilating; unable to sit still OX3. Pt reports thinking she needs an inpatient admission. Collateral note from Clarisse Moreau APRN: Phone call with client, she reports that she continues to feel "terrible, crying for 3 days". She reports she has been utilizing her klonopin with mild benefit. She states she has been feeling suicidal daily and is "starting to have a plan" but does not actively have a plan at this moment and does not have any intention of hurting herself presently. 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 She wants to go to the ED for evaluation. Offered to call 911, client reports her friend will drive her. Patient's Address: [address] [place] [address] Other Phone Number: Who Do You Live With? Patient and family Family/Informants Interviewed: collateral provided by outpatient provider Clarisse moreau APRN Allergies - Coded Allergies: amoxicillin (Mild, HIVES 01/03/16) clavulanic acid (Mild, HIVES 01/03/16) latex (Mild, HIVES 01/03/16) procaine (Intermediate, HYPERTENSION 01/06/16) benztropine (MYDRIASIS FOR 1 MONTH 01/06/16) Current Medications - Scheduled Medications Bupropion HCl 75 MG TABLET 75 MG PO 1000 augmentation of SSRI therapy #14 TAB Prescribed by HARESH SAMAYOA MD on 02/11/17 Cholecalciferol (Vitamin D3) 1,000 UNIT TABLET 1 TAB PO DAILY SUPPLEMENT ( Reported) Entered as Reported by CANDIE BROWNE on 01/05/16 1410 Ferrous Sulfate 325 MG (65 MG IRON) TABLET 1 TAB PO DAILY SUPPLEMENT ( Reported) Entered as Reported by CANDIE BROWNE on 02/07/17 1139 Lovastatin 10 MG TABLET 1 TAB PO QPM CHOLESTEROL #90 (Reported) Entered as Reported by CANDIE BROWNE on 02/07/17 1137 Multivitamin (Multiple Vitamins) 1 EACH TABLET 1 TAB PO DAILY SUPPLEMENT ( Reported) Entered as Reported by CANDIE BROWNE on 01/05/16 1410 Paroxetine HCl 30 MG TABLET 1 TAB PO DAILY ANXIETY (Reported) Entered as Reported by CANDIE BROWNE on 03/09/17 1425 Quetiapine Fumarate (Seroquel) 50 MG TABLET 50 MG PO 2200 calm racing thoughts #14 TAB Prescribed by HARESH SAMAYOA MD on 02/11/17 Scheduled PRN Medications Clonazepam (Klonopin) 1 MG TABLET 1 TAB PO BIDP PRN ANXIETY (Reported) Entered as Reported by CANDIE BROWNE on 02/07/17 1138 Quetiapine Fumarate (Seroquel) 25 MG TABLET 1 TAB PO QPM PRN SLEEP #15 ( Reported) Entered as Reported by CANDIE BROWNE on 03/09/17 1426 Laboratory Results: Laboratory Tests 03/09/17 1206: Anion Gap 12, Estimated GFR > 60, BUN/Creatinine Ratio 20.0, Glucose 100 H, Calcium 8.9, Total Bilirubin 0.3, AST 22, ALT 32, Alkaline Phosphatase 54, Total Protein 7.2, Albumin 4.1, Globulin 3.1, Albumin/Globulin Ratio 1.3, CBC w Diff NO MAN DIFF REQ, RBC 4.05 L, MCV 93.0, MCH 32.0 H, RDW 12.6, MPV 7.3 L, Gran % 63.2, Lymphocytes % 23.6, Monocytes % 6.6, Eosinophils % 6.0 H, Basophils % 0.6, Absolute Granulocytes 5.0, Absolute Lymphocytes 1.9, Absolute Monocytes 0.5 , Absolute Eosinophils 0.5, Absolute Basophils 0, PUBS MCHC 34.5, Serum Alcohol < 10.0 03/09/17 1202: Urine Opiates Screen < 100.00, Methadone Screen 59, Barbiturate Screen < 60, Ur Phencyclidine Scrn < 6.00, Amphetamines Screen < 100, U Benzodiazepines Scrn 86, Urine Cocaine Screen < 50, Urine Cannabis Screen < 5.00, Urine Test NEGATIVE Past History Past Medical History Neurological: NONE EENT: allergies Cardiovascular: hyperlipidemia Respiratory: NONE Gastrointestinal: NONE Hepatic: NONE Renal: NONE Musculoskeletal: NONE Psychiatric: anxiety, depression, 20YRS AGO-SELF INJURIOUS CUTTING TO LEFT ARM Endocrine: NONE, vitamin D deficiency Blood Disorders: NONE, anemia Cancer(s): NONE KENNEL KEEPER/Reproductive: SHAR-MENAPAUSAL SHAR-MENOPAUSAL Past Surgical History Surgical History: non-contributory Psychosocial History Strengths/Capabilities: The patient has good insight into her symptoms and is motivated for treatment. Physical Limitations (Interventions): Currently experiencing physical symptoms, which she states are related to her medication changes. Psychiatric Treatment History Psych Treatment Psychiatric Treatment Yes Inpatient Treatment Yes Outpatient Treatment Yes Location of Treatment [place] [address] - most recent February 2017; [facility] - current Reason for Treatment Anxiety Response to Treatment sensitive to medication changes. continues to struggle with debilitating anxiety Diagnosis by History: Unknown Substance Use/Abuse History Drug Use/Abuse Substances Used/Abused No Substance Abuse Treatment Substance Abuse Treatment Past Substance Abuse [place] No Inpatient Treatment No Outpatient Treatment No Current Mental Status Mental Status Orientation: Person, Place, Situation Affect: Anxious, Hopeless Speech: Perseveration, Pressured Neuro-vegetative: Appetite Decreased, Concentration Poor, Helpless, Loss of Interest, Sleep Disturbance Behaviors Thought Process: WNL Thought Content: WNL Memory: WNL Insight: Fair SI/HI Risk Assessment Past Suicidal Ideation/Attempts Yes Current Suicidal Ideation/Att Yes Past Homicidal Ideation/Att: No Current Homicidal Ideation/Attempts No Degree of Intent: Thoughts/No Intent Danger To: Self Gravely Disabled: Poor Impulse Control Risk Factors: high anxiety/distress, history of suicide atmpts, SA/MH hospitalized, poor impulse control Lethality Ratin PTSD Checklist PTSD Done? patient declined ED Management Sitter: Yes Restraints: No DSM5/PS Stressors/Medical Prob Diagnosis' (DSM 5, Stressors, Medical): Generalized anxiety d/o (F41.1) medication sensitivity Current GAF: 25 Comments: pt reports anxiety/panic attack episodes worsening past 48 hrs. experiencing emotional distress, sadness and suicidal ideation. Departure Disposition Psych Medical Clearance Date: 03/09/17 Medically Cleared at: 1645 Time Started: 1650 Time Ended: 1730 Psychiatrist Consulted: Gumaro KINNEY,Edward Date Disposition Established: 03/09/17 Time Disposition Established: 1744 Plan for Disposition - Modality: Bed Search Rationale for Disposition: Pt reported positive suicidal ideation reports increased anxiety and emotional distress related to medication changes. Referrals ISAIAH KINNEY,HARINDER (PCP/Family)
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
[2017-03-11 14:17] VITALS: BP 110/84
--- NOTE | 2017-03-11 16:17 | CPS MD/APRN INITIAL ASSE PSYCH ---
Psychiatric Admission Eligibility Analyst's Note Reviewed: Yes Patient Seen and Examined: Yes Identifying Information: 46-year-old White female Chief Complaint: anxiety and suicidal ideation Reaction to Hospitalization: in agreement History of Present Illness Onset of Illness: 46-year-old White female presented to -ED with Anxiety and thoughts of suicide. She was recently at [facility] (see previous recent admission) Circumstances Leading to Admission: Reported that she has been feeling worse x 3 days, distressed, depressed, tearful, anxious and voicing thoughts of suicide Problem(s) Justifying Need for Admission: thinking of suicide Other HPI: Well-known to inpatient and outpatient psychiatry at [facility]. Extensive records available for details Past Psychiatric History Past Diagnosis(es)- if any: Depression and anxiety Past Precipitating Factors- if any: She attributes mental status changes to medication changes (??) - Include inpatient and outpatient treatment Treatment History: inpatient and outpatient treatments at [facility] History of Suicide Attempts or Gestures Record indicated history of suicide attempts Substance Abuse History: Denied alcohol or drug use Allergies: Coded Allergies: amoxicillin (Mild, HIVES 01/03/16) clavulanic acid (Mild, HIVES 01/03/16) latex (Mild, HIVES 01/03/16) procaine (Intermediate, HYPERTENSION 01/06/16) benztropine (MYDRIASIS FOR 1 MONTH 01/06/16) Home Med List: Paxil 30 mg daily Klonopin 1 mg BID stopped Wellbutrin about a week earlier - Include any medical condition(s) that may - impact the patient's recovery/remission Past Medical History: History of high cholesterol and shar-menopause Past History Medical History Blood Transfusion Hx: No Neurological: NONE EENT: allergies Cardiovascular: hyperlipidemia Respiratory: NONE Gastrointestinal: NONE Hepatic: NONE Renal: NONE Musculoskeletal: NONE Psychiatric: anxiety, depression, 20YRS AGO-SELF INJURIOUS CUTTING TO LEFT ARM Endocrine: vitamin D deficiency Blood Disorders: anemia Cancer(s): NONE 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 admission but H&H normal in E[employer]D. [employer]. History of MRSA: No History of VRE: No History of CDIFF: No Isolation History: Standard Influenza Vaccine: 09/07/16 Surgical History Surgical History: non-contributory Psychiatric Family/Social Hx Family History Psychiatric Illness: no family suicides Substance Use: unknown Suicides: no Social History Living Situation: with famil Significant Relationships (family/friends): single Education: see prior record Vocation/Occupation: see prior records Legal: none Healthly Behaviors Screening Tobacco Screening Tobacco Use from ED Docu: Never used - If tobacco counseling indicated - the following topics are required. - #1 Recognizing dangerous situations. - #2 Coping Skills. - #3 Basic information about quitting. Status of Tobacco Cessation Counseling: N/A B/C NO TOB USE Cessation Med Status: No Tobacco Use last 30d Alcohol Screening - ETOH screen POS if BAL >=80 or Audit-C>= M4/F3 Audit-C Score from Diag Assess: 0 Blood Alcohol Level: Laboratory Tests 03/09 1206 Toxicology Serum Alcohol (<10 MG/DL) < 10.0 Alcohol Use Screening Results: Neg per Audit C &/or BAL - If ETOH counseling indicated - the following topics are required. - #1 Express concern about the patient's - drinking at unhealthy levels, include informing - of national norms for moderate drinking: - men <= 14 drinks/week, max 4 drinks/occasion - women <= 7 drinks/week, max 3 drinks/occasion - #2 Providing feedback, including linking alcohol to - negative physical effects (liver injury, hypertension) - negative emotional effects (relationship problems and - depression) - negative occupational consequences (reduced work - performance) - #3 Advising the patient to abstain from alcohol or - to drink below national norms for moderate drinking - (as listed above). Status of ETOH Use Counseling: N/A B/C NO ETOH Use Metabolic Screening - Screen if on a Neuroleptic Medication - Metabolic screening should include: - Blood Pressure, BMI, Glucose or Hgb A1c, & a - Lipid profile from within the past 365 days. Metabolic Screening Patient on a neuroleptic(s) Exam and Plan Mental Status Examination Ambulation Status: full mobility Appearance: unremarkable Attitude towards examiner: cooperative Psychomotor activity: increased Behavior: anxious, irritable Quality of speech: talkative with mild pressure Affect: anxious Mood: anxious, depressed, dysregulated Suicidal Ideation: yes Homicidal Ideation: no Hallucinations: no Paranoid/Delusional Material: no Difficulties with thought organization: yes Insight: poor Judgment: poor Orientation: x 3 Cognition: poor attention Memory Function: no deficits Estimate of intellectual functioning: average Assets/Strengths Patient Identified Assets/Strengths: intelligent Impression/Plan Impression and Plan: 46-year-old white female with emotional lability and unstable moods came in for high anxiety and thoughts of suicide - Include all active medical diagnosis that require tx DSM 5 Diagnosis(es): Disruptive mood dysregulation disorder MARILEE Personality Disorder - Initial Tx Plan for Active Psych & Medical Conditions Treatment Plan: admit to inpatient 1:1 observation Increase Paxil to 40 mg continue Klonopin 1 mg BID PRN Ativan [facility] Therapy MD nguyễn daily Nurses Eval Q shift Group therapy Social Work Assessment and discharge planning - Factors that would help patient function - in a less restrictive setting. Factors: medication adjustments
[2017-03-11 20:00] VITALS: BP 109/81
[2017-03-12 08:00] VITALS: BP 121/62
--- NOTE | 2017-03-12 10:48 | CP SOUTH PROGRESS NOTE PSYCH ---
Psych (Inpt) Progress Note Progress Note Include the following elements, when applicable: Involvement in the active treatment of the patient with behavioral observations of the patient and the patient's response to the treatment. Review of the ongoing treatment process in the context of the treatment plan. Indication of how multi-disciplinary staff members are carrying out the treatment plan. Plans for future interventions and recommendations for revision of the treatment plan. Liaison with other physicians/providers. Progress Note: Pt sitting in community room with sitter. Pt very anxious with passive SI journally about her thoughts. Very tearful and insistent on ativan and klonopin. Explained no changes to these medications would be made. Amenable to increase seroquel, 25mg BID at 8am and 1pm, and trial of mirtazapine 7.5mg QHS. Notes on going passive SI. Current Medications Sig/Hortencia Start time Last Medication Dose Route Stop Time Status Admin Acetaminophen 650 MG Q4P PRN 03/11 1130 AC 03/12 PO 0602 Al Hydroxide/Mg 30 ML Q4-6 PRN PRN 03/11 1215 AC Hydroxide PO Atorvastatin Calcium 10 MG QPM 03/11 2200 DC PO Atorvastatin Calcium 10 MG 1700 03/11 1700 AC 03/11 PO 1708 Bupropion HCl 75 MG DAILY 03/12 1000 CAN PO Cholecalciferol 1,000 IU DAILY 03/12 1000 AC 03/12 PO 0919 Clonazepam 1 MG BID 03/11 2200 AC / PO 03/18 2159 0920 Clonazepam 1 MG BID 03/09 2200 DC 03/11 PO 03/16 2159 0835 Ferrous Sulfate 325 MG DAILY 03/12 1000 AC 03/12 PO 0918 Lorazepam 1 MG Q4 HRS NEEDED PRN 03/11 1600 AC 03/12 PO 0603 Lorazepam 1 MG ONCE ONE 03/11 1430 DC 03/11 PO 03/11 1431 1435 Magnesium Hydroxide 30 ML AT BEDTIME PRN 03/11 1215 AC PO Mirtazapine 7.5 MG AT BEDTIME 03/12 2200 UNVr PO Multivitamins 1 TAB DAILY 03/12 1000 AC 03/12 PO 0919 Paroxetine HCl 30 MG DAILY 03/12 1000 CAN PO Paroxetine HCl 40 MG DAILY 03/12 1000 AC 03/12 PO 0919 Paroxetine HCl 20 MG ONE ONE 03/11 1815 DC 03/11 PO 03/11 1816 1924 Paroxetine HCl 40 MG DAILY 03/11 1546 DC PO Paroxetine HCl 20 MG 0800 03/11 0800 DC 03/11 PO 0835 Quetiapine Fumarate 25 MG BID 03/12 1041 UNVr PO Quetiapine Fumarate 50 MG AT BEDTIME 03/11 2200 AC 03/11 PO 2135 Quetiapine Fumarate 25 MG Q8P PRN 03/11 1215 AC 03/11 PO 1414 Laboratory Tests 03/09 03/09 1206 1202 Chemistry Sodium (137 - 145 mmol/L) 138 Potassium (3.5 - 5.1 mmol/L) 4.0 Chloride (98 - 107 mmol/L) 106 Carbon Dioxide (22 - 30 mmol/L) 20 L Anion Gap (5 - 16) 12 BUN (7 - 17 mg/dL) 14 Creatinine (0.5 - 1.0 mg/dL) 0.7 Estimated GFR (>60 ml/min) > 60 BUN/Creatinine Ratio (7 - 25 %) 20.0 Glucose (65 - 99 mg/dL) 100 H Calcium (8.4 - 10.2 mg/dL) 8.9 Total Bilirubin (0.2 - 1.3 mg/dL) 0.3 AST (14 - 36 U/L) 22 ALT (9 - 52 U/L) 32 Alkaline Phosphatase (<127 U/L) 54 Total Protein (6.3 - 8.2 g/dL) 7.2 Albumin (3.5 - 5.0 g/dL) 4.1 Globulin (1.9 - 4.2 gm/dL) 3.1 Albumin/Globulin Ratio (1.1 - 2.2 %) 1.3 Hematology CBC w Diff NO MAN DIFF REQ WBC (4.8 - 10.8 /CUMM) 7.9 RBC (4.20 - 5.40 /CUMM) 4.05 L Hgb (12.0 - 16.0 G/DL) 13.0 Hct (37 - 47 %) 37.7 MCV (81.0 - 99.0 FL) 93.0 MCH (27.0 - 31.0 PG) 32.0 H RDW (11.5 - 14.5 %) 12.6 Plt Count (130 - 400 /CUMM) 307 MPV (7.4 - 10.4 FL) 7.3 L Gran % (42.2 - 75.2 %) 63.2 Lymphocytes % (20.5 - 51.1 %) 23.6 Monocytes % (1.7 - 9.3 %) 6.6 Eosinophils % (0 - 5 %) 6.0 H Basophils % (0.0 - 2.0 %) 0.6 Absolute Granulocytes (1.4 - 6.5 /CUMM) 5.0 Absolute Lymphocytes (1.2 - 3.4 /CUMM) 1.9 Absolute Monocytes (0.10 - 0.60 /CUMM) 0.5 Absolute Eosinophils (0.0 - 0.7 /CUMM) 0.5 Absolute Basophils (0.0 - 0.2 /CUMM) 0 PUBS MCHC (33.0 - 37.0 G/DL) 34.5 Toxicology Urine Opiates Screen (>2000 NG/ML) < 100.00 Methadone Screen (>300 NG/ML) 59 Barbiturate Screen (>200 NG/ML) < 60 Ur Phencyclidine Scrn (>25 NG/ML) < 6.00 Amphetamines Screen (>1000 NG/ML) < 100 U Benzodiazepines Scrn (>200 NG/ML) 86 Urine Cocaine Screen (>300 NG/ML) < 50 Urine Cannabis Screen (>50 NG/ML) < 5.00 Serum Alcohol (<10 MG/DL) < 10.0 Urines Urine Test NEGATIVE Vital Signs Date Time Temp Pulse Resp B/P B/P Pulse O2 O2 Flow FiO2 Mean Ox Delivery Rate 03/12 0800 98.7 88 121/62 03/11 2000 98.8 96 109/81 03/11 1418 99.1 03/11 1417 99.4 91 110/84 MSE Appears as stated age. Cooperative behavior, good, appropriate eye contact. low slow speech rate and prosody. + psychomotor agitation. Mood terrible, I'm suicidal Affect irritable, tearful, depressed, inappropriate, liable. Linear and goal directed thought process. + passive SI denies HI. Does not appear to be responding to internal stimuli. Denies AVHs, paranoia, or delusions. I/J: limited A/p: Pt with hx of MDD and unspecified anxiety with ongoing active and passive SI and marked irritability and mood lability. Given level of distress and SI, would consider ECT for this patient. In the meantime, would attempt to maximize non-BDZ treatment, as does not treat unlying mood and anxiety disorder. - Continue 1:1 - Start seroquel 25mg BID in addition to 50mg QHS. A few care reports have shown that low-dose seroquel can be helpful in presentations such as this where underlying personality characteristics limiting coping with psychosocial stressors. - Start mirtazapine 7.5mg for mood and sleep - Otherwise continue current medication regimen - Again would consider ECT in a pt such as this
[2017-03-12 12:28] VITALS: BP 113/73
[2017-03-12 16:02] VITALS: BP 117/71
[2017-03-12 20:00] VITALS: BP 123/68
--- NOTE | 2017-03-12 20:45 | History & Physical ---
General Information and HPI History of Present Illness: 46F PMH HLD, iron deficiency anemia, anxiety, depression, admitted for uncontrolled anxiety and depression. Patient feels physically well and has no physical complaints. She wishes treatment for her anxiety. Allergies/Medications Allergies: Coded Allergies: amoxicillin (Mild, HIVES 01/03/16) clavulanic acid (Mild, HIVES 01/03/16) latex (Mild, HIVES 01/03/16) procaine (Intermediate, HYPERTENSION 01/06/16) benztropine (MYDRIASIS FOR 1 MONTH 01/06/16) Home Med list Bupropion HCl 75 MG TABLET 75 MG PO 1000 augmentation of SSRI therapy Cholecalciferol (Vitamin D3) 1,000 UNIT TABLET 1 TAB PO DAILY SUPPLEMENT ( Reported) Clonazepam (Klonopin) 1 MG TABLET 1 TAB PO BIDP PRN ANXIETY (Reported) Ferrous Sulfate 325 MG (65 MG IRON) TABLET 1 TAB PO DAILY SUPPLEMENT ( Reported) Lovastatin 10 MG TABLET 1 TAB PO QPM CHOLESTEROL (Reported) Multivitamin (Multiple Vitamins) 1 EACH TABLET 1 TAB PO DAILY SUPPLEMENT ( Reported) Paroxetine HCl 30 MG TABLET 1 TAB PO DAILY ANXIETY (Reported) Quetiapine Fumarate (Seroquel) 25 MG TABLET 1 TAB PO QPM PRN SLEEP (Reported) Quetiapine Fumarate (Seroquel) 50 MG TABLET 50 MG PO 2200 calm racing thoughts Past History Travel History Traveled to [facility] past 21 day No Medical History Blood Transfusion Hx: No Neurological: NONE EENT: allergies Cardiovascular: hyperlipidemia Respiratory: NONE Gastrointestinal: NONE Hepatic: NONE Renal: NONE Musculoskeletal: NONE Psychiatric: anxiety, depression, 20YRS AGO-SELF INJURIOUS CUTTING TO LEFT ARM Endocrine: vitamin D deficiency Blood Disorders: anemia Cancer(s): NONE 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. History of MRSA: No History of VRE: No History of CDIFF: No Isolation History: Standard Influenza Vaccine: 09/07/16 Surgical History Surgical History: non-contributory Past Family/Social History Family History Relations & Conditions if any MOTHER Relation not specified for: FH: cancer Psychosocial History Who Do You Live With? parent Services at Home: None Primary Language: Japanese ETOH Use: denies use Illicit Drug Use: denies illicit drug use Functional Ability ADLs Independent: dressing, eating, toileting, bathing. Ambulation: independent IADLs Independent: shopping, housework, finances, food prep, telephone, transportation , medication admin. Review of Systems Review of Systems Constitutional: Reports: no symptoms. EENTM: Reports: no symptoms. Cardiovascular: Reports: no symptoms. Respiratory: Reports: no symptoms. GI: Reports: no symptoms. Genitourinary: Reports: no symptoms. Musculoskeletal: Reports: no symptoms. Skin: Reports: no symptoms. Neurological/Psychological: Reports: no symptoms. Hematologic/Endocrine: Reports: no symptoms. Immunologic/Allergic: Reports: no symptoms. All Other Systems: Reviewed and Negative Exam & Diagnostic Data Last 24 Hrs of Vital Signs/I&O Vital Signs Date Time Temp Pulse Resp B/P B/P Pulse O2 O2 Flow FiO2 Mean Ox Delivery Rate 03/12 2000 98.2 93 123/68 / 1602 88 117/71 / 1228 82 113/73 / 0800 98.7 88 121/62 Physical Exam General Appearance Alert, Oriented X3, Cooperative, No Acute Distress HEENT Atraumatic Neck Supple Cardiovascular Regular Rate Lungs Normal Air Movement Abdomen Soft Neurological Exam Findings: Normal Gait, Normal Speech Cranial Nerves II through XII: Grossly normal Extremities No Edema Vascular Normal Pulses Assessment/Plan Assessment: 46F PMH HLD, ELIU, anxiety, depression admitted with [facility] with anxiety and major depression with no acute medical issues. Plan - Management by psychiatry - Continue statin - Continue iron supplementation - No need to recheck CBC or lipid levels - Continue Vitamin D - Ambulatory for DVT PPx As Ranked By This Provider Problem List: 1. Major depression 2. MARILEE (generalized anxiety disorder) 3. ELIU (iron deficiency anemia) 4. Hyperlipidemia Miscellaneous Miscellaneous Documentation Attending Case Discussed With: PIA SENIOR MD Primary Care Physician: HARINDER COLON MD Patient sees these Specialists None Level of Patient Care: [facility]
[2017-03-13 01:54] VITALS: BP 121/72
[2017-03-13 08:10] VITALS: BP 116/67
--- NOTE | 2017-03-13 11:53 | CP SOUTH PROGRESS NOTE PSYCH ---
Psych (Inpt) Progress Note Progress Note Include the following elements, when applicable: Involvement in the active treatment of the patient with behavioral observations of the patient and the patient's response to the treatment. Review of the ongoing treatment process in the context of the treatment plan. Indication of how multi-disciplinary staff members are carrying out the treatment plan. Plans for future interventions and recommendations for revision of the treatment plan. Liaison with other physicians/providers. Progress Note: Per RN report: "Pt 'fainted' softly but dramatically at 0145 while requesting Tylenol for persistent tooth pain. VS at that time 121/72 HR 101. Pt was asisted back to her room, given water, asked to get up slowly. No further problems. Pt slept." Pt noted that she "fainted" overnight. She denied LH or dizziness. Feels that meds caused this because "very sensitive to medications," with noted exceptions of ativan and klonopin. Pt notes tooth pain. Continued SI. Current Medications Sig/Hortencia Start time Last Medication Dose Route Stop Time Status Admin Acetaminophen 650 MG .STK-MED ONE 03/13 0143 DC PO 03/13 0144 Acetaminophen 650 MG .STK-MED ONE 03/12 1527 DC PO / 1528 Acetaminophen 650 MG Q4P PRN 03/11 1130 AC 03/13 PO 0705 Al Hydroxide/Mg 30 ML Q4-6 PRN PRN 03/11 1215 AC Hydroxide PO Atorvastatin Calcium 10 MG 1700 05/05 1700 AC / PO 1736 Cholecalciferol 1,000 IU DAILY / 1000 AC 03/13 PO 0814 Clonazepam 1 MG BID 03/11 2200 AC / PO 03/189 0813 Ferrous Sulfate 325 MG DAILY / 1000 AC / PO 0814 Lorazepam 1 MG Q4 HRS NEEDED PRN 05/ 1600 AC 05/ PO 0603 Magnesium Hydroxide 30 ML AT BEDTIME PRN 03/11 1215 AC PO Mirtazapine 7.5 MG AT BEDTIME / 2200 AC / PO 2148 Multivitamins 1 TAB DAILY / 1000 AC / PO 0814 Paroxetine HCl 40 MG DAILY / 1000 AC / PO 0814 Quetiapine Fumarate 25 MG 0800,1300 05/06 1300 AC 05/ PO 0814 Quetiapine Fumarate 50 MG AT BEDTIME 03/11 2200 AC 03/12 PO 2148 Quetiapine Fumarate 25 MG Q8P PRN 03/11 1215 AC 03/12 PO 1057 Vital Signs Date Time Temp Pulse Resp B/P B/P Pulse O2 O2 Flow FiO2 Mean Ox Delivery Rate 03/13 810 97.3 90 116/67 03/13 0154 101 121/72 03/12 2000 98.2 93 123/68 03/12 1602 88 117/71 03/12 1228 82 113/73 MSE Appears as stated age. Cooperative behavior, good, appropriate eye contact. low slow speech rate and prosody. + psychomotor agitation. Mood I'm very suicidal!! ! Affect irritable, tearful, depressed, inappropriate, liable. Linear and goal directed thought process. + passive SI denies HI. Does not appear to be responding to internal stimuli. Denies AVHs, paranoia, or delusions. I/J: limited A/p: Pt with hx of MDD and unspecified anxiety with ongoing active and passive SI and marked irritability and mood lability. Given level of distress and SI, would consider ECT for this patient. In the meantime, would attempt to maximize non-BDZ treatment, as does not treat unlying mood and anxiety disorder. - Continue 1:1 - Continue seroquel 25mg BID in addition to 50mg QHS. A few care reports have shown that low-dose seroquel can be helpful in presentations such as this where underlying personality characteristics limiting coping with psychosocial stressors. Pt does not want to go above 100mg/d total seroquel. - Continue mirtazapine 7.5mg for mood and sleep, no evidence of OH contributing to "fainting" - Oralgel for tooth pain not available as allergy to procaine, risk of HTN, concern as pt already noted "very sensitive" to meds will increase her anxiety. - Consider consult for tooth pain, no evidence of significant infection though some facial edema. Did not have wisdom teeth removed. - Otherwise continue current medication regimen - Again would consider ECT in a pt such as this
[2017-03-13 12:06] VITALS: BP 111/74
[2017-03-13 15:44] VITALS: BP 120/78
[2017-03-13 19:53] VITALS: BP 115/75
[2017-03-14 07:58] VITALS: BP 119/74
--- NOTE | 2017-03-14 11:05 | CP SOUTH PROGRESS NOTE PSYCH ---
Psych (Inpt) Progress Note Progress Note Include the following elements, when applicable: Involvement in the active treatment of the patient with behavioral observations of the patient and the patient's response to the treatment. Review of the ongoing treatment process in the context of the treatment plan. Indication of how multi-disciplinary staff members are carrying out the treatment plan. Plans for future interventions and recommendations for revision of the treatment plan. Liaison with other physicians/providers. Progress Note: I discussed this patient's progress to date, current mental status, treatment process in the context of the treatment plan, and discharge planning with staff/ team in the daily morning inpatient team meeting. I also met with the patient myself in individual session. OBJECTIVE: Current Medications Sig/Hortencia Start time Last Medication Dose Route Stop Time Status Admin Acetaminophen 650 MG .STK-MED ONE 03/13 2127 DC PO 03/13 2128 Acetaminophen 650 MG .STK-MED ONE 03/13 1704 DC PO 03/13 170 Acetaminophen 650 MG Q4P PRN 03/11 1130 AC 03/14 PO 0811 Al Hydroxide/Mg 30 ML Q4-6 PRN PRN 03/11 1215 AC Hydroxide PO Atorvastatin Calcium 10 MG 1700 03/11 1700 AC 03/13 PO 1634 Cholecalciferol 1,000 IU DAILY 03/12 1000 AC 03/14 PO 0810 Clonazepam 1 MG BID 03/11 2200 AC 03/14 PO 03/18 2159 0811 Ferrous Sulfate 325 MG DAILY 03/12 1000 AC 03/14 PO 0811 Ibuprofen 600 MG Q8P PRN 03/14 1130 AC PO Lorazepam 1 MG Q4 HRS NEEDED PRN 03/11 1600 DC 03/12 PO 0603 Magnesium Hydroxide 30 ML AT BEDTIME PRN 03/11 1215 AC PO Mirtazapine 7.5 MG AT BEDTIME 03/12 2200 AC 03/13 PO 2133 Multivitamins 1 TAB DAILY 03/12 1000 AC 03/14 PO 0811 Paroxetine HCl 40 MG DAILY 03/12 1000 AC 03/14 PO 0811 Quetiapine Fumarate 25 MG 0800,1300 05/06 1300 AC 03/14 PO 0811 Quetiapine Fumarate 50 MG AT BEDTIME 03/11 2200 AC 03/13 PO 2133 Quetiapine Fumarate 25 MG Q8P PRN 03/11 1215 AC 03/12 PO 1057 Vital Signs Date Time Temp Pulse Resp B/P B/P Pulse O2 O2 Flow FiO2 Mean Ox Delivery Rate 03/14 0758 97.0 91 119/74 05 1953 97.8 78 115/75 05 1544 92 120/78 03/13 1206 86 111/74 ASSESSMENT: Chart, progress notes, labs, VS and medication list were reviewed. Vital signs within normal limits. Mildly tachy over the weekend, now resolved. Will continue to monitor closely. No new lab results today. Reviewed patient's progress to date with nursing staff. Per report Patient is a 46-year old female with a longstanding psychiatric history, prior psychiatric hospitalizations on [facility] (last in February 2017), prior [facility] tx who presented to ED for worsening mood symptoms of depression/ anxiety and suicidal ideation 3 days prior to ED arrival. She was admitted to [facility] on 03/11/17. Since, Paxil was increased from 30mg daily to 40mg daily for depression/anxiety, Klonopin 1mg BID was continued, Ativan 1mg Q4H prn was started for break-trhough anxiety, Mirtazapine 7.5mg was started for mood and insomnia, and Seroquel 25mg BID and 50mg QHS were added for mood stabilization. She was also maintained on 1:1 ATC since 03/11/17 d/t impulsive mood, poor boundaries, and SI. Met with patient for the first time today on [facility]. She presented much calmer than described in previous progress notes. Behavior was cooperative. Patient engaged easily in conversation; speech was fairly well articulated, normal in rate, tone and volume. Eye contact was appropriate. Mood appeared more stable than previously described in notes. She continued to describe her mood as "depressed. " Shared feeling "less anxious." Rated anxiety a 3/10 (10 being the worst) and depression 8/10 (10 being the worst). Affect was mostly constricted, non-labile. She denied passive and active suicidal ideation, plans and intent. Denied urges to harm herself. Denied homicidal ideation, auditory and visual hallucinations. Denied paranoid ideation. There was no evidence of gold delusions. She denied racing thoughts and ruminative thoughts. Insight/judgement remain limited. Thought process was linear. Cognition grossly intact. She continued to report tooth pain to L side of face. No evidence of significant infection, however some minor facial edema. Will start ibuprofen 600mg prn. If symptoms do not improve will consult hospitalist. Patient reported tolerating medications well. Expressed some daytime tiredness from addition of Seroquel though reported positive effect on mood/anxiety. Willing to continue at present dose. Will continue monitoring patient's response to all medications. Reviewed with patient that she has not utilized prn Ativan since 03/12/17. Patient reported anxiety was better controlled by Seroquel and was agreeable to discontinue prn Ativan. PLAN: 1. Discontinue 1:1 ATC. Resume routine safety checks. 2. Discontinue prn Ativan, continue Klonopin 1mg BID. 3. Continue Seroquel, Paxil, & Remeron as ordered. 4. Dispo planning per primary team.
[2017-03-14 12:02] VITALS: BP 104/65
--- NOTE | 2017-03-14 15:51 | SOCIAL WORKER PROG NOTE PSYCH ---
Social Work Progress Note Progress Note Pt has an ICM Shi [phone]. Is a resource for services adn or any barriers to treatment.
[2017-03-14 16:23] VITALS: BP 106/59
--- NOTE | 2017-03-14 16:32 | SOCIAL WORKER PROG NOTE PSYCH ---
Social Work Progress Note Progress Note Pt was sleeping earlier and would not arouse, I saw her an hour later and she states she is purposefully isolating and trying to settle her nerves and anxiety. She likes her outpatient providers and arrangements with [facility] and groups with [facility]. She is applying for disability again and states she is learning what she can and cant do, and has to learn to let go of some things and be realistic about her goals and abilities. She was less tearful, and reports feeling sedated at this point. She will biju over the diea of a family session with her Mom, sister and brother in law, but was not agreeable at this point.
[2017-03-14 19:58] VITALS: BP 125/62
[2017-03-15 08:04] VITALS: BP 120/78
[2017-03-15 12:42] VITALS: BP 118/63
--- NOTE | 2017-03-15 13:17 | SOCIAL WORKER PROG NOTE PSYCH ---
Social Work Progress Note Progress Note Pt was active most of the day from what I saw, she engaged in group therapy. She was concerened about discbility paperwork, we will follow up and make some phone calls tomorrow, if she can manage this with my support that is ok, she seems to be perking up slightly, and her Mother visited and they played a game of [employer], Mom will check in with her sister and brother in law "if we can make it we will, you could get all of us or none of us her Mom told me". I requested she let me know tomorrow.
--- NOTE | 2017-03-15 13:17 | SOCIAL WORKER TX PLAN PSYCH ---
Treatment Plan - Please Document: - Evidence that there is ongoing collaboration between - the patient and the interdisciplinary team, - including the patient's active participation and - responsibility for engaging in the treatment regimen, - and that the treatment plan is individualized and - relevant to the patient's conditions. - Treatment plan should reflect documentation indicating - that all active therapeutic efforts are included. Strengths/Capabilities: The patient has good insight into her symptoms and is motivated for treatment. Physical Limitations (Interventions): Currently experiencing physical symptoms, which she states are related to her medication changes. Problem/Goals #1 Problem #1: depression Goal (Short Term): Learn ways to manage depressive symptoms accordingly and identify positive supports to manage life stressors and mood fluctuations. Goal ([employer]): To elminate thoughts of suicide, to utilize coping skills and support network Medication management Intensive outpatient Interventions: accupuncture, stress management, focus group, recreational groups Learn ways to manage medications accordingly and report unusual symptoms to family/treatment provider Learn ways to manage anxiety symptoms accordingly and identify coping skills to prevent suicidal ideation from occurring due to anxious/depressed feelings Modalities: Encourage groups, education on depression, provide CBT treatment, family meeting. DSM5/PS Stressors/Medical Prob Diagnosis' (DSM 5, Stressors, Medical): Unspecified Depression F32.9 Generalized anxiety d/o (F41.1) medication sensitivity Current GAF: 25 Treatment Team - Responsibilities of members of the treatment team include: - Medication Management- MD or PROFESSOR OF FOOD BIOCHEMISTRY - Medication Administration and Monitoring- Nurse - Group Therapy- Occupational Therapist - 1:1 Therapy,Disch Planning,family involvement-Catalog Librarian
[2017-03-15 15:48] VITALS: BP 121/79
--- NOTE | 2017-03-15 16:47 | CP SOUTH PROGRESS NOTE PSYCH ---
Psych (Inpt) Progress Note Progress Note Include the following elements, when applicable: Involvement in the active treatment of the patient with behavioral observations of the patient and the patient's response to the treatment. Review of the ongoing treatment process in the context of the treatment plan. Indication of how multi-disciplinary staff members are carrying out the treatment plan. Plans for future interventions and recommendations for revision of the treatment plan. Liaison with other physicians/providers. Progress Note: I discussed this patient's progress to date, current mental status, treatment process in the context of the treatment plan, and discharge planning with staff/ team in the daily morning inpatient team meeting. I also met with the patient myself in individual session. OBJECTIVE: Current Medications Sig/Hortencia Start time Last Medication Dose Route Stop Time Status Admin Acetaminophen 650 MG .STK-MED ONE 03/14 1744 DC PO 03/14 174 Acetaminophen 650 MG Q4P PRN 03/11 1130 AC 03/14 PO 1749 Al Hydroxide/Mg 30 ML Q4-6 PRN PRN 03/11 1215 AC Hydroxide PO Atorvastatin Calcium 10 MG 1700 03/11 1700 AC 03/14 PO 1659 Cholecalciferol 1,000 IU DAILY 03/12 1000 AC 03/15 PO 0812 Clonazepam 1 MG BID 03/11 2200 AC 03/15 PO 03/18 2159 0811 Ferrous Sulfate 325 MG DAILY 03/12 1000 AC 03/15 PO 0812 Ibuprofen 600 MG .STK-MED ONE 03/15 0805 DC PO 03/15 0806 Ibuprofen 600 MG Q8P PRN 03/14 1130 AC 03/15 PO 1443 Magnesium Hydroxide 30 ML AT BEDTIME PRN 03/11 1215 AC PO Mirtazapine 7.5 MG AT BEDTIME 03/12 2200 AC 03/14 PO 2126 Multivitamins 1 TAB DAILY 03/12 1000 AC 03/15 PO 0812 Paroxetine HCl 40 MG DAILY 03/12 1000 AC 03/15 PO 0812 Quetiapine Fumarate 25 MG 0800,1300 05 1300 AC / PO 1443 Quetiapine Fumarate 50 MG AT BEDTIME 03/11 2200 AC 03/14 PO 2126 Quetiapine Fumarate 25 MG Q8P PRN 03/11 1215 AC 03/12 PO 1057 Vital Signs Date Time Temp Pulse Resp B/P B/P Pulse O2 O2 Flow FiO2 Mean Ox Delivery Rate 03/15 1548 78 121/79 03/15 1242 83 118/63 03/15 0804 98.0 90 120/78 03/14 1958 97.9 89 125/62 ASSESSMENT: Chart, progress notes, VS, labs and medication list were reviewed. Vital signs within normal limits. No new lab results today. Reviewed patient's progress to date with nursing staff. Per their reports, patient's mood is more stable. She has been active in milieu activites; behaviorally she shows improved boundaries off 1:1. There were no reports of SI, urges to self harm or behavioral impulsivity. Met with patient this evening individually. Prior to encounter, she had been visiting with her mother. She expressed frustration with this visit as encounters with her mother are a source of anxiety, given that outside of the hopsital she is her mother's primary critical care cns. She reported her mother has COPD, lung CA, and possibly early-onset dementia. She feels overwhelmed by caring for her mother at home. She reports living with her mother; also reported her mother has freqeunt bouts of NMAs, behavioral outbursts and hallucinations at home. She reported her mother's condition is managed by her PCP. She stated her mother is stubborn and will not entertain the idea of having an in-home nurse/marketing administrative assistant. Reviewed with the patient the importance of self-care and needing to find outlets to relieve anxiety secondary to this stressor. Patient verbalized understanding and shared that she engages in yoga and journaling to help alleviate stress. She reportd her mood as "clarita" today. Affect appeared somewhat anxious while discussing her mother. She had no complaints. She rated her anxiety a 1-5/10 (10 being the worst) and depression a 1/10 (10 being the worst). She denied feeling hopeless, helpless, worthless and guilty. She denied passive and active suicidal ideation, plans and intent. She denied homicidal ideation. She denied auditory and visual hallucinations. Denied paranoid ideation, denied racing/ruminative thoughts. There was no evidence of delusions. Thought process was linear and goal-directed. Cognition was grossly intact. Patient reported tolerating medications well, reported some daytime tiredness on current dose Seroquel; however again related + effect on anxiety. She denied acute untoward medication effects. Will continue present management. Borached topic of IOP with patient as a post-discharge plan. Patient appeared somewhat resistant, but stated she was willing to consider this. Informed patient that I discussed this with her outpatient CAR CHANGER, Clarisse Hannah, given that this is her second inpatient presentation in 2 months. Outpatient CAR CHANGER in support of plan. Patient again was willing to consider IOP for increased psychiatric monitoring. PLAN: 1. Continue monitoring patient for safety, suicidal ideation, mood. 2. Continue current meds. 3. Dispo planning per primary team.
[2017-03-15 19:52] VITALS: BP 114/74
[2017-03-16 07:44] VITALS: BP 104/63
--- NOTE | 2017-03-16 08:06 | CP SOUTH PROGRESS NOTE PSYCH ---
Psych (Inpt) Progress Note Progress Note Include the following elements, when applicable: Involvement in the active treatment of the patient with behavioral observations of the patient and the patient's response to the treatment. Review of the ongoing treatment process in the context of the treatment plan. Indication of how multi-disciplinary staff members are carrying out the treatment plan. Plans for future interventions and recommendations for revision of the treatment plan. Liaison with other physicians/providers. Progress Note: I discussed this patient's progress to date, current mental status, treatment process in the context of the treatment plan, and discharge planning with staff/ team in the daily morning inpatient team meeting. I also met with the patient myself in individual session. OBJECTIVE: Current Medications Sig/Hortencia Start time Last Medication Dose Route Stop Time Status Admin Acetaminophen 650 MG Q4P PRN 03/11 1130 AC 03/14 PO 1749 Al Hydroxide/Mg 30 ML Q4-6 PRN PRN 03/11 1215 AC Hydroxide PO Atorvastatin Calcium 10 MG 1700 03/11 1700 AC 03/15 PO 1802 Cholecalciferol 1,000 IU DAILY 03/12 1000 AC 03/15 PO 0812 Clonazepam 1 MG BID 03/11 2200 AC / PO 03/18 2159 2126 Ferrous Sulfate 325 MG DAILY 03/12 1000 AC 03/15 PO 0812 Ibuprofen 600 MG .STK-MED ONE 03/15 0805 DC PO 03/15 0806 Ibuprofen 600 MG Q8P PRN 03/14 1130 AC 03/15 PO 2126 Magnesium Hydroxide 30 ML AT BEDTIME PRN 03/11 1215 AC PO Mirtazapine 7.5 MG AT BEDTIME 03/12 2200 AC 03/15 PO 2126 Multivitamins 1 TAB DAILY 03/12 1000 AC 03/15 PO 0812 Paroxetine HCl 40 MG DAILY 03/12 1000 AC 03/15 PO 0812 Quetiapine Fumarate 25 MG 0800,1300 / 1300 AC 03/15 PO 1443 Quetiapine Fumarate 50 MG AT BEDTIME 03/11 2200 AC 03/15 PO 2126 Quetiapine Fumarate 25 MG Q8P PRN 03/11 1215 AC 03/15 PO 2341 Vital Signs Date Time Temp Pulse Resp B/P B/P Pulse O2 O2 Flow FiO2 Mean Ox Delivery Rate 03/16 744 98.1 81 104/63 03/15 195 98.3 83 114/74 03/15 1548 78 121/79 03/15 1242 83 118/63 ASSESSMENT: Chart, progress notes, labs, VS and medication list were reviewed. Vital signs within normal limits. No new lab results today. Met with patient individually this morning. She noted having difficulty falling and staying asleep last night secondary to her roomate who was snoring and awake intermittently, and who she found standing over her verbalizing that she was her . Per patient, she screameed out due to fear. Patient received a prn of Seroquel then returned to sleep. I notified nursing staff this morning of the patient's report. Patient also shared about her visit last evening with her mother. Stated she loved seeing her, but also that visit was stressful as her mother was intermittently confused while playing the game [employer]. Patient also felt as if she was babysitting her during the visit which she found stressful. She rated anxiety of 5/10 (10 being the worst) and depression of 1/10. She denied passive and active suicidal ideation, plans and intent. Denied homicidal ideation, auditory and visual hallucinations. Affect was constricted, non-labile. Mood was "anxious." Thought process was linear, goal directed. Speech was normal in rate, tone and volume. Eye contact was appropriate. Patient informed me that she thought more about proposed discharge plan to IOP last night and is agreeable to plan. Insight and judgement slowly improving. Patient tolerating medications well and denied untoward medication effects. PLAN: 1. Continue current medications as prescribed. 2. Continue monitoring for safety, mood and suicidal ideation. 3. Arrange IOP intake. 4. Discharge tomorrow.
[2017-03-16 12:43] VITALS: BP 128/69
--- NOTE | 2017-03-16 13:03 | SOCIAL WORKER PROG NOTE PSYCH ---
Social Work Progress Note Progress Note Pt has a family session tomorrow at noon with her Mother and sister. Insurance auth# [id number] last covered day 03/17/17. IOP intake 03/18/17 at 9:30am IOP
--- NOTE | 2017-03-16 16:09 | SOCIAL WORKER PROG NOTE PSYCH ---
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 Pt addressed some ideas she would like to bring up for the family session, and that is for the family to understand her mental health a little better, and for them to offer hugs and more contact instead of stating "are you on your meds". Pt encouraged to be present in group and to engage in milieu.
[2017-03-16 16:14] VITALS: BP 98/62
[2017-03-16 20:06] VITALS: BP 121/71
[2017-03-17 08:24] VITALS: BP 105/74
--- NOTE | 2017-03-17 11:03 | CP SOUTH PROGRESS NOTE PSYCH ---
Psych (Inpt) Progress Note Progress Note Include the following elements, when applicable: Involvement in the active treatment of the patient with behavioral observations of the patient and the patient's response to the treatment. Review of the ongoing treatment process in the context of the treatment plan. Indication of how multi-disciplinary staff members are carrying out the treatment plan. Plans for future interventions and recommendations for revision of the treatment plan. Liaison with other physicians/providers. Progress Note: I discussed this patient's progress to date, current mental status, treatment process in the context of the treatment plan, and discharge planning with staff/ team in the daily morning inpatient team meeting. I also met with the patient myself in individual session. OBJECTIVE: Current Medications Sig/Hortencia Start time Last Medication Dose Route Stop Time Status Admin Acetaminophen 650 MG .STK-MED ONE 03/16 2123 DC PO 03/16 2124 Acetaminophen 650 MG Q4P PRN 03/11 1130 AC 03/16 PO 212 Al Hydroxide/Mg 30 ML Q4-6 PRN PRN 03/11 1215 AC Hydroxide PO Atorvastatin Calcium 10 MG 1700 03/11 1700 AC 03/16 PO 1617 Cholecalciferol 1,000 IU DAILY 03/12 1000 AC 03/17 PO 0902 Clonazepam 1 MG BID 03/11 2200 AC 03/16 PO 03/187 Ferrous Sulfate 325 MG DAILY 03/12 1000 AC 03/17 PO 0902 Ibuprofen 600 MG Q8P PRN 03/14 1130 AC 03/16 PO 1448 Magnesium Hydroxide 30 ML AT BEDTIME PRN 03/11 1215 AC PO Mirtazapine 7.5 MG AT BEDTIME 03/12 2200 AC 03/16 PO 2127 Multivitamins 1 TAB DAILY 03/12 1000 AC 03/17 PO 0902 Paroxetine HCl 40 MG DAILY 03/12 1000 AC 03/17 PO 0902 Quetiapine Fumarate 25 MG 0800,1300 05/ 1300 AC 03/17 PO 0902 Quetiapine Fumarate 50 MG AT BEDTIME 03/11 2200 AC 03/16 PO 2128 Quetiapine Fumarate 25 MG Q8P PRN 03/11 1215 AC 03/15 PO 2341 Vital Signs Date Time Temp Pulse Resp B/P B/P Pulse O2 O2 Flow FiO2 Mean Ox Delivery Rate 03/17 824 97.2 87 105/74 03/16 2006 97.3 75 121/71 03/16 1614 82 98/62 03/16 1243 88 128/69 Lab Cholesterol 195 MG/DL 03/17/17 0640 Cholesterol/HDL Ratio 4 % 03/17/17 0640 HDL Cholesterol 53 mg/dL 03/17/17 0640 LDL Cholesterol, Calc 122 mg/dL 03/17/17 0640 Triglycerides 103 mg/dL 03/17/17 0640 ASSESSMENT: Chart, progress notes, labs, VS and medication list were reviewed. Vital signs within normal limits. Lipid panel resulted wnl. Family meeting was held today with the patient, her mother, Sarah Leon LCSW, and this curriculum writer. The patient's treatment progress to date, medication regimen, level of safety, healthy communication, and discharge planning were reviewed and discussed. The patient was able to communicate her concerns to her mother surrounding her mother's declining health; she was also able to receive feedback from her mother appropriately. Both the patient and her mother were committed to moving forward and improving their communication. The patient's mother denied acute safety concerns surrounding the patient's discharge. The patient and her mother were both in favor of discharge plan to [facility]. On the date of discharge, 03/17/17, the patient shared that today's family meeting was beneficial and in helping her to communicate to her mother. She expressed feeling loved and supported by her mother, and looked forward to returning home with her. She reported her mood as "less anxious." Her affect was constricted. She had no complaints. She reported her energy level was fair. Reported her sleep and appetite were stable. Rated depression a 2/10 (10 being the worst) and anxiety a 3/10 (10 being the worst). She denied feeling hopeless, helpless, worthless or guilty. She denied active and passive suicidal ideation, plans and intent. She stated and also believed she will not harm herself or others. She gave protective factors of "my mom," "my sister," and "my friends." She denied homicidal ideation, auditory and visual hallucinations. There was no evidence of paranoia or gold delusions. Thought process was linear and goal- directed. Cognition was grossly intact. She reported tolerating all medications well and denied untoward medication effects. [place] SOCIAL WORKER PALLIATIVE CARE reviewed today. PLAN: 1. Discharge today to home and mother. 2. F/u at [facility] tomorrow, 03/18/17 at 9:30AM. 3. Discharge prescriptions were e-prescribed to [facility] pharmacy in [place], [place] today, per the patient's request. 4. In the event of an emergency, call 911/go to the nearest emergency department. Patient verbalized understanding of instructions.
[2017-03-17] MEDS ORDERED: PAXIL40 M1 PO (12:57)
[2017-03-17] MEDS ORDERED: QUETIAPINE FUMA25 M1 PO (13:01)
[2017-03-17] MEDS ORDERED: SEROQUEL50 M1 PO (13:01)
[2017-03-17] MEDS ORDERED: REMERON15 M2 PO (13:03)
--- NOTE | 2017-03-17 13:04 | DISCHARGE SUMMARY REPORT-PSYCH ---
Visit Information Visit Dates/Diagnosis' Admission Date: 03/11/17 Discharge Date: 03/17/17 Reason for Admission: Increased anxiety and passive thoughts of suicide. Psy Discharge Primary Diag: Disruptive mood dysregulation disorder Psy Discharge Secondary Diag: Generalized anxiety disorder; Personality disorder by history, history of high cholesterol. Hospital Course Significant Lab Findings: Lab Urine Test NEGATIVE 03/09/17 1202 Course Complications: None. Consultations: The patient was seen for admission history and physical by sill worker Dr. Alia Wong. Please see his note for additional information. Allergies: Coded Allergies: amoxicillin (Mild, HIVES 01/03/16) clavulanic acid (Mild, HIVES 01/03/16) latex (Mild, HIVES 01/03/16) procaine (Intermediate, HYPERTENSION 01/06/16) benztropine (MYDRIASIS FOR 1 MONTH 01/06/16) Hospital Course/TX Response: The patient was monitored on the unit for safety, mood, suicidal ideation, and erratic behavior. She was initially monitored on 1:1 around the clock for safety to self and erratic behavior. 1:1 monitoring was discontinued after 3 days due to improved behavioral control and maintaining safety. She participated in multimodal treatments on the unit. Paxil 30mg was increased to 40mg daily for anxiety/depression. Seroquel 50mg at bedtime was continued, and Seroquel 25mg BID at 8AM and 1PM was added for anxiety. Mirtazapine 7.5mg QHS was additionally added for mood and insomnia. Klonopin 1mg BID was continued for anxiety. Patient reported tolerating all medications well and denied untoward medication effects. During the hospital course, the patient's mood and affect improved. Suicidal ideation remitted. A family meeting was held with the patient, her mother, Sarah Leon LCSW, and this report writer. The patient's treatment progress, medication regimen, level of safety, healthy communication, and discharge planning were reviewed and discussed. The patient was able to communicate her concerns to her mother surrounding her mother's declining health; she was also able to receive feedback from her mother appropriately. Both the patient and her mother were committed to moving forward and improving their communication. The patient's mother denied acute safety concerns surrounding the patient's discharge. The patient and her mother were both in favor of discharge plan to [facility]. On the date of discharge, 03/17/17, the patient reported that today's family meeting was beneficial and helped her to communicate to her mother. She expressed feeling loved and supported by her mother, and looked forward to returning home with her. She reported her mood as "less anxious." Her affect was constricted. She had no complaints. She reported her energy level was fair. Reported her sleep and appetite were stable. Rated depression a 2/10 (10 being the worst) and anxiety a 3/10 (10 being the worst). She denied feeling hopeless, helpless, worthless or guilty. She denied active and passive suicidal ideation, plans and intent. She stated and also believed she will not harm herself or others. She gave protective factors of "my mom," "my sister," and "my friends." She denied homicidal ideation, auditory and visual hallucinations. There was no evidence of paranoia or gold delusions. Thought process was linear and goal- directed. Cognition was grossly intact. She reported tolerating all medications well and denied untoward medication effects. She reported feeling safe and ready for discharge. Discharge HBIPS - Tobacco Use Treatment Offered Post DC Medications Offered: NA-No Tob Use >30 days Post DC Tobacco Treatment Plan: NA-No Tobacco use >30days - EtOH/Drug Use D/O Treatment Offered Post DC Medications Offered: NA-No EtOH/Drug Use D/O Post DC EtOH/SubAbuse TX Plan: NA-No EtOH/Drug Use D/O Metabolic Screening - Screen if on a Neuroleptic Medication - Metabolic screening should include: - Blood Pressure, BMI, Glucose or Hgb A1c, & a - Lipid profile from within the past 365 days. Metabolic Screening () Not Applicable, patient not on a neuroleptic. OR ([X]) Patient on a neuroleptic(s) . Enter below results for Glucose or Hemoglobin A1C, and lipid panel if obtained during the last 365 days. BMI: 26.200 Blood Pressure: 105/74 Laboratory Results (If applicable): Lab Cholesterol 195 MG/DL 03/17/17 0640 Cholesterol/HDL Ratio 4 % 03/17/17 0640 Glucose 100 mg/dL H 03/09/17 1206 HDL Cholesterol 53 mg/dL 03/17/17 0640 LDL Cholesterol, Calc 122 mg/dL 03/17/17 0640 Triglycerides 103 mg/dL 03/17/17 0640 Discharge Instructions General Discharge Information Discharge Medications: Discharge Medications- (Dose, route, freq, indication): START taking these NEW Home Medications: Mirtazapine Dose: ORAL, Every night for Qty: 7 Sent to (Remeron) 15 MG 0.5 Tablet depression/insomnia Refills: 0 Pharm 1 TABLET Take 1/2 tab (0.5mg) po at bedtime. Paroxetine HCl Dose: ORAL, DAILY for Qty: 14 Sent to (Paxil) 40 MG TABLET 1 Tablet anxiety/depression Refills: 0 Pharm 1 Take 1 tab po daily. Quetiapine Fumarate Dose: ORAL, AT BEDTIME for Qty: 14 Sent to (Seroquel) 50 MG 50 Milligram anxiety/insomnia Refills: 0 Pharm 1 TABLET Take 1 tab po at bedtime. Quetiapine Fumarate Dose: ORAL, 0800,1300 for mood Qty: 28 Sent to (Quetiapine 25 Milligram stability/clear thoughts Refills: 0 Pharm 1 Fumarate) 25 MG Take 1 tab po twice TABLET daily. CONTINUE taking these Home Medications: Cholecalciferol (Vitamin Dose: ORAL, DAILY for D3) 1,000 UNIT TABLET 1 Tablet SUPPLEMENT Multivitamin (Multiple Dose: ORAL, DAILY for Vitamins) 1 EACH TABLET 1 Tablet SUPPLEMENT Lovastatin (Lovastatin) Dose: ORAL, Every night for 10 MG TABLET 1 Tablet CHOLESTEROL Last Taken:02/10/17 Time:5pm lipitor substituted in hospital Clonazepam (Klonopin) 1 Dose: ORAL, 2 x Daily as MG TABLET 1 Tablet needed as needed for ANXIETY Last Taken:02/11/17 Time:9am Ferrous Sulfate (Ferrous Dose: ORAL, DAILY for Sulfate) 325 MG (65 MG 1 Tablet SUPPLEMENT IRON) TABLET not given in hospital STOP taking these DISCONTINUED Home Medications: Bupropion HCl (Bupropion HCl) Dose: ORAL, 1000 for augmentation of 75 MG TABLET 75 Milligram SSRI therapy Reason Stopped: Per Doctor Decision 1: [id number] [place] [address] [phone] Your Preferred Pharmacy [facility] [id number] [place] [id number] Multiple Neuroleptics: ([X]) Not Applicable OR Document below three failed attempts at monotherapy, or a plan to taper to monotherapy, or augmentation of Clozapine. () Patient's Diet: Regular. Patient's Activity: No restrictions. DC Disposition: Patient to return to home and mother. Recommendations: Patient was advised to please take her medications as prescribed. She was advised to routinely practice healthy communication with her mother. She was advised to follow-up with scheduled IOP intake and participate in program for continued management of psychiatric symptoms. She was advised that in the event of an emergency to call 911/ go to nearest emergency department. Patient verbalized understanding of all instructions. Referred To: [facility] [address] [place] [address] *Appointment scheduled for IOP intake on 03/18/17 at 9:30AM. Copies To: IOP
--- NOTE | 2017-03-17 13:09 | SOCIAL WORKER PROG NOTE PSYCH ---
Social Work Progress Note Progress Note Pt had supportive and helpful family session, in which her and her Mother got chel express concerns and how to be supportive and to move forward. They were loving towards each other and feel things will improve from here. Pt denies si, and reports "im compliant I will always do the next right thing, living with my Mom as she ages, is difficult". Pt agrees to go to [facility].
== END 2017-03-17 13:30 | DRG 754 ==
LOC: ERH 11:45 → CP SOUTH 03-11 09:51 → ERHI 03-11 09:51 → CP SOUTH 03-11 13:58 → ENRESERV 03-11 15:00 → CP SOUTH 03-14 10:51
PROVIDERS: Emergency Medicine; Registered Nurse Psychiatric/Mental Health; ADMIT Psychiatry & Neurology Addiction Medicine
DX: F32.9 Major depressive disorder, single episode, unspecified (principal); F41.1 Generalized anxiety disorder; F60.9 Personality disorder, unspecified; E78.00 Pure hypercholesterolemia, unspecified
CPT/HCPCS: 36415; 80307; 81025; G0463; G0480

== ENCOUNTER 2017-11-14 13:41 | Emergency (ER) | payer OTHER ==
[~2017-11-14] VITALS: Ht 160 cm; Wt 58.1 kg
[~2017-11-14 13:41] MED LIST changes: +PAROXETINE HCL30 M1 PO; +PAXIL40 M1 PO; +REMERON15 M2 PO; +SEROQUEL25 M1 PO
[2017-11-14 14:14] LABS: ABSOLUTE BASOPHIL COUNT 0 /CUMM (0.0-0.2); ABSOLUTE EOSINOPHIL COUNT 0.3 /CUMM (0.0-0.7); ABSOLUTE GRANULOCYTE CT 5.1 /CUMM (1.4-6.5); ABSOLUTE LYMPH COUNT 1.8 /CUMM (1.2-3.4); ABSOLUTE MONOCYTE COUNT 0.4 /CUMM (0.10-0.60); BASOPHIL % 0.4 % (0.0-2.0); EOSINOPHIL % 3.4 % (0-5); GRANULOCYTE % 67.9 % (42.2-75.2); HEMATOCRIT 35.4 % (37-47); MEAN CORPUSCULAR HGB 32.7 PG (27.0-31.0); MEAN CORPUSCULAR VOLUME 96.2 FL (81.0-99.0); MEAN PLATELET VOLUME 7.8 FL (7.4-10.4); PLATELET COUNT 337 /CUMM (130-400); RBC DISTRIBUTION WIDTH 13.2 % (11.5-14.5); RED BLOOD CELL CT 3.69 /CUMM (4.20-5.40); WHITE BLOOD CELL COUNT 7.6 /CUMM (4.8-10.8)
--- NOTE | 2017-11-14 16:33 | ED GI/GU/ABDOMINAL COMPLAINT ---
See Addendum History of Present Illness General Chief Complaint: Abdominal Pain/Flank Pain Stated Complaint: ABD PAIN Source: patient, family Exam Limitations: no limitations Vital Signs & Intake/Output Vital Signs & Intake/Output Vital Signs Date Time Temp Pulse Resp B/P B/P Pulse O2 O2 Flow FiO2 Mean Ox Delivery Rate 11/14 1351 98.8 78 18 133/87 98 Room Air Allergies Coded Allergies: amoxicillin (Mild, HIVES 01/03/16) clavulanic acid (Mild, HIVES 01/03/16) latex (Mild, HIVES 01/03/16) procaine (Intermediate, HYPERTENSION 01/06/16) benztropine (MYDRIASIS FOR 1 MONTH 01/06/16) Triage Note: 47 YEAR OLD FEMALE SENT BY HER PMD OFFICE FOR SEVERE L SDIE ABD PAIN, STATES THAT SHE HAS BEEN HAVING EPISODES OF L SIDE ABD PAIN ON AND OFF SINCE OCTOBER, STATES THAT SHE STARTED A NEW DIET PLAN WHERE SHE DOES NOT EAT FLOUR/WHEAT/SUGAR, HAS HAD SOME BM PROBLEMS TO. WAS SEEN BY PMD LAST WEEK AND STARTED ON PRILOSEC AND PEPCID WAS OK AND THEN SHE DRANK TEA AND COFFEE TUESDAY AND THE PAIN STARTED ALL OVER AGAIN. DENIES N/V/D. Triage Nurses Notes Reviewed? yes ? n Is pt currently ? No Onset: Gradual Duration: waxing and waning Timing: no prior history Quality/Severity: cramping Location: left lower quadrant Radiation: no radiation Activities at Onset: none Prior Abdominal Problems: none Past Sexual History: Unobtainable at this time No Modifying Factors: none HPI: Patient is a 47-year-old female presenting to the emergency department complaining of lower abdominal pain has been waxing and waning for the past 2-1/ 2 weeks. No history of similar pain in the past. She does report that she recently changed her diet cutting out wheat, flour and dairy. She also cut out caffeine. She drank excessive amount of caffeine [place] Day and symptoms started worsening after that. Denies any nausea or vomiting. No fevers or chills. No chest pain palpitations or shortness of breath. Nothing seems to make the symptoms better or worse. Over the past 2-3 days symptoms have been persistent. Initially they were coming and going lasting only "a little while". She tried taking Compazine at home without relief. No recent antibiotics. (Yolanda Morales) Reconcile Medications Cholecalciferol (Vitamin D3) 1,000 UNIT TABLET 1 TAB PO DAILY SUPPLEMENT ( Reported) Clonazepam (Klonopin) 1 MG TABLET 1 TAB PO BIDP PRN ANXIETY (Reported) Dicyclomine Hydrochloride (Bentyl) 10 MG CAPSULE 1 CAP PO TID PRN abdominal spasms Ferrous Sulfate 325 MG (65 MG IRON) TABLET 1 TAB PO DAILY SUPPLEMENT ( Reported) Lovastatin 10 MG TABLET 1 TAB PO QPM CHOLESTEROL (Reported) Mirtazapine (Remeron) 15 MG TABLET 0.5 TAB PO QPM depression/insomnia Take 1/2 tab (0.5mg) po at bedtime. Multivitamin (Multiple Vitamins) 1 EACH TABLET 1 TAB PO DAILY SUPPLEMENT ( Reported) Nitrofurantoin Monohyd/M-Cryst (Macrobid 100 MG Capsule) 100 MG CAPSULE 1 CAP PO BID uti with food Paroxetine HCl (Paxil) 40 MG TABLET 1 TAB PO DAILY anxiety/depression Take 1 tab po daily. Quetiapine Fumarate (Seroquel) 50 MG TABLET 50 MG PO AT BEDTIME anxiety/ insomnia Take 1 tab po at bedtime. Quetiapine Fumarate 25 MG TABLET 25 MG PO 0800,1300 mood stability/clear thoughts Take 1 tab po twice daily. (Get KINNEY,Luisa) Past History Travel History Traveled to [place] past 21 day No Medical History Any Pertinent Medical History? 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 History of MRSA: No History of VRE: No History of CDIFF: No Surgical History Surgical History: non-contributory Psychosocial History Who do you live with Patient and family Services at Home None What is your primary language [place] Island[place] Tobacco Use: Never used ETOH Use: denies use Illicit Drug Use: denies illicit drug use Family History Family History, If Any: MOTHER Relation not specified for: FH: cancer Hx Contributory? No (Yolanda Morales) Review of Systems Review of Systems Constitutional: Reports: no symptoms. Comments Review of systems: See HPI, All other systems negative. Constitutional, no chills fever or weight loss HEENT: No visual changes no sore throat no congestion Cardiovascular: No chest pain ,palpitation Skin, no jaundice no rashes Respiratory: No dyspnea cough sputum or hemoptysis GI: No nausea no vomiting : No dysuria No hematuria Muscle skeletal: no back pain, no neck pain, Neurologic: No numbness no confusion Psych: No stress anxiety Immunology: No splenectomy or history of AIDS (Yolanda Morales) Physical Exam Physical Exam General Appearance: well developed/nourished, no apparent distress, alert, awake , comfortable Gastrointestinal: normal bowel sounds, soft, tenderness Comments: Well-developed well-nourished person in no acute distress HEENT: . normal cephalic atraumatic Neck: normal inspection Back: Nontender, no CVA tenderness. Cardiovascular: Regular rate and rhythms no murmurs rubs or gallops Respiratory: Chest nontender. No respiratory distress.breath sounds clear to auscultation bilaterally Abdomen: Soft, nondistended, no appreciable organomegaly. Normal bowel sounds. No ascites. tender to palpation over periumbilical region without rebound or gaurding. Extremity: No edema Neuro: Alert oriented x3 Skin: No appreciable rash on exposed skin, skin is warm and dry. Psych: Mood and affect is normal, memory and judgment is normal. Core Measures ACS in differential dx? No Sepsis Present: No Sepsis Focused Exam Completed? No (Yolanda Morales) Progress Differential Diagnosis: appendicitis, biliary colic, bowel obstruction, diverticulitis, gastritis, ovarian cyst, ovarian torsion, pancreatitis Plan of Care: Orders Procedure Date/time Status Add-on Test (ER Only) 11/14 1709 Active CULTURE,URINE 11/14 1446 Active URINE 11/14 1446 Complete LIPASE 11/14 1358 Complete URINALYSIS 11/14 1350 Complete COMPREHENSIVE METABOLIC PANEL 11/14 1350 Complete CBC WITHOUT DIFFERENTIAL 11/14 1350 Complete Laboratory Tests 11/14/17 1446: Urine Test NEGATIVE 11/14/17 1446: Urine Color YEL, Urine Clarity CLEAR, Urine pH 6.0, Ur Specific [place]son 1.020, Urine Protein NEG, Urine Ketones TRACE H, Urine Nitrite NEG, Urine Bilirubin NEG, Urine Urobilinogen 0.2, Ur Leukocyte Esterase LARGE H, Ur Microscopic SEDIMENT EXAMINED, Urine RBC RARE, Urine WBC 15-25 H, Ur Epithelial Cells MANY H, Urine Bacteria MANY H, Urine Hemoglobin NEG, Urine Glucose NEG 11/14/17 1358: Anion Gap 12, Estimated GFR > 60, BUN/Creatinine Ratio 22.9, Glucose 93, Calcium 9.2, Total Bilirubin 0.2, AST 21, ALT 37, Alkaline Phosphatase 48, Total Protein 6.9, Albumin 4.0, Globulin 2.9, Albumin/Globulin Ratio 1.4, Lipase 115, CBC w Diff NO MAN DIFF REQ, RBC 3.69 L, MCV 96.2, MCH 32.7 H, RDW 13.2, MPV 7.8, Gran % 67.9, Lymphocytes % 23.2, Monocytes % 5.1, Eosinophils % 3.4, Basophils % 0.4, Absolute Granulocytes 5.1, Absolute Lymphocytes 1.8, Absolute Monocytes 0.4 , Absolute Eosinophils 0.3, Absolute Basophils 0, PUBS MCHC 34.0 Microbiology 11/14 1446 URINE ROUT: Urine Culture - RECD She was feeling slightly improved after IV Toradol. She was informed of all labs and imaging results. Patient nontoxic, she will follow up with gastroenterology. Started on fentanyl. She will continue taking Compazine as needed for nausea. Patient nontoxic. Diagnostic Imaging: Viewed by Me: CT Scan. Discussed w/RAD: CT Scan. Radiology Impression: PATIENT: HUYEN PÉREZ PRESENT AGE: 47 PATIENT ACCOUNT NO: [id number] : 68 LOCATION: [facility] ORDERING PHYSICIAN: Yolanda KWOK SERVICE DATE: 11/14/17 EXAM TYPE: CAT - CT ABD & PELVIS W IV CONTRAST EXAMINATION: CT ABDOMEN AND PELVIS WITH CONTRAST CLINICAL INFORMATION: 47-year-old woman with left lower quadrant pain. COMPARISON: 02/07/[address] TECHNIQUE: Multidetector volumetric imaging was performed of the abdomen and pelvis following IV administration of 94 mL of Optiray 320 intravenous contrast. Sagittal and coronal reformatted images were obtained on the technologist's workstation. DLP: 274 mGy-cm FINDINGS: The lung bases are well aerated. The liver, spleen, pancreas, adrenals, kidneys, and gallbladder enhance normally and demonstrate no discrete anatomic abnormality. Nondilated loops of large and small bowel are unremarkable in appearance as well. The appendix and terminal ileum are not inflamed. The uterus and adnexal structures are normal in appearance. The bladder appears normal as well. IMPRESSION: No acute intra-abdominal process is appreciated. DICTATED BY: Jhoana Vital MD DATE/TIME DICTATED:11/14/171810 PACKING LINE WORKER:ROB DATE/TIME TRANSCRIBED:11/14/171810 CONFIDENTIAL, DO NOT COPY WITHOUT APPROPRIATE AUTHORIZATION. <Electronically signed in Other Vendor System> SIGNED BY: Jhoana Vital MD 11/14/171818 Initial ED EKG: none (Yolanda Morales) Departure Departure Time of Disposition: 1828 Disposition: HOME OR SELF CARE Condition: Stable Clinical Impression Primary Impression: Abdominal pain Qualifiers: Abdominal location: generalized Qualified Code: R10.84 - Generalized abdominal pain Referrals: Eve Tuttle DO (PCP/Family) Patricia KINNEY,Mohinder Sarabia Additional Instructions: Follow-up with gastroenterology, call to make an appointment for the next 5-7 days. Increase fluids. Take bentyl to help with abdominal discomfort. comtineu compazine prn as previously prescribed. Return for worsening symptoms or concerns. you will likely need further evaluation if pains persist. Departure Forms: Customer Survey General Discharge Information (Yolanda Morales) Departure Prescriptions: Current Visit Scripts Dicyclomine Hydrochloride (Bentyl) 1 CAP PO TID PRN abdominal spasms #15 CAP Nitrofurantoin Monohyd/M-Cryst (Macrobid 100 MG Capsule) 1 CAP PO BID #14 CAP with food PA/PRUNE WASHER Co-Sign Statement Statement: ED Attending supervision documentation- [] I saw and evaluated the patient. I have also reviewed all the pertinent lab results and diagnostic results. I agree with the findings and the plan of care as documented in the PA's/PRUNE WASHER's documentation. [X] I have reviewed the ED Record and agree with the PA's/PRUNE WASHER's documentation. [] Additions or exceptions (if any) to the PAs/PRUNE WASHER's note and plan are summarized below: [] (Get KINNEY,Luisa)
--- NOTE | 2017-11-14 18:19 | CT SCAN REPORT ---
EXAMINATION: CT ABDOMEN AND PELVIS WITH CONTRAST CLINICAL INFORMATION: 47-year-old woman with left lower quadrant pain. COMPARISON: 02/07/[address] TECHNIQUE: Multidetector volumetric imaging was performed of the abdomen and pelvis following IV administration of 94 mL of Optiray 320 intravenous contrast. Sagittal and coronal reformatted images were obtained on the technologist's workstation. DLP: 274 mGy-cm FINDINGS: The lung bases are well aerated. The liver, spleen, pancreas, adrenals, kidneys, and gallbladder enhance normally and demonstrate no discrete anatomic abnormality. Nondilated loops of large and small bowel are unremarkable in appearance as well. The appendix and terminal ileum are not inflamed. The uterus and adnexal structures are normal in appearance. The bladder appears normal as well. IMPRESSION: No acute intra-abdominal process is appreciated.
[2017-11-14] MEDS ORDERED: BENTYL10 M1 PO (18:32)
[2017-11-14] MEDS ORDERED: MACROBID 100 M100 MG PO (18:38)
[2017-11-14 19:06] VITALS: BP 130/78
== END 2017-11-14 19:17 ==
LOC: ERH 13:41
PROVIDERS: Emergency Medicine
DX: R10.32 Left lower quadrant pain (principal)
CPT/HCPCS: 74177; 81001; 81025; 87086; 96374; J1885

== ENCOUNTER 2018-01-18 12:25 | Inpatient (IN) | payer OTHER ==
[~2018-01-18] VITALS: Ht 160 cm; Wt 58.5 kg
[~2018-01-18 12:25] MED LIST changes: +BENTYL10 M1 PO; +MACROBID 100 M100 MG PO
[2018-01-18 13:32] LABS: ABSOLUTE BASOPHIL COUNT 0 /CUMM (0.0-0.2); ABSOLUTE EOSINOPHIL COUNT 0.1 /CUMM (0.0-0.7); ABSOLUTE GRANULOCYTE CT 5.4 /CUMM (1.4-6.5); ABSOLUTE LYMPH COUNT 1.4 /CUMM (1.2-3.4); ABSOLUTE MONOCYTE COUNT 0.3 /CUMM (0.10-0.60); BASOPHIL % 0.2 % (0.0-2.0); EOSINOPHIL % 1.6 % (0-5); HEMATOCRIT 33.5 % (37-47); MEAN CORPUSCULAR HGB 32.4 PG (27.0-31.0); MEAN CORPUSCULAR HGB CONC 34.3 G/DL (33.0-37.0); MEAN CORPUSCULAR VOLUME 94.6 FL (81.0-99.0); PLATELET COUNT 304 /CUMM (130-400); RBC DISTRIBUTION WIDTH 13.4 % (11.5-14.5); RED BLOOD CELL CT 3.55 /CUMM (4.20-5.40); WHITE BLOOD CELL COUNT 7.2 /CUMM (4.8-10.8)
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
--- NOTE | 2018-01-18 16:45 | ED PSY CRISIS COLLATERAL NOTE ---
Collateral Note Collateral Note Family/Inform/Cedric Contacts: Recieved call from Clarisse Hannah APRN () who stated that she had a phone voicemail from the pt earlier today which she returned but that it went to . Clarisse stated that pt has a personality disorder but that has had a serious suicide attempt which required her to be intebated and in the ICU. Pt is currently in therapy with Josefa Araiza. half-way recommendation is for DBT IOP.
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
[2018-01-18] MEDS ORDERED: PAROXETINE HCL30 M1 PO (19:04)
[2018-01-18] MEDS ORDERED: METRONIDAZOLE70 GM (19:05)
[2018-01-18] MEDS ORDERED: MICROGESTIN FE1 EAC1 PO (19:06)
[2018-01-18] MEDS ORDERED: METRONIDAZOLE500 M1 PO (19:06)
[2018-01-18] MEDS ORDERED: VITAMIN C500 M9 PO (19:07)
[2018-01-18] MEDS ORDERED: OMEPRAZOLE40 M1 PO (19:07)
[2018-01-18] MEDS ORDERED: ASPIRIN EC81 M1 PO (19:07)
[2018-01-18] MEDS ORDERED: VSL#3 CAPSULE1 EACH PO (19:07)
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
[2018-01-19 15:55] VITALS: BP 112/73
[2018-01-19 20:14] VITALS: BP 121/72
[2018-01-20 07:49] VITALS: BP 99/73
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
[2018-01-20 12:13] VITALS: BP 120/71
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
[2018-01-20 16:22] VITALS: BP 113/65
[2018-01-20 19:49] VITALS: BP 113/52
[2018-01-21 07:38] VITALS: BP 112/73
[2018-01-21 12:12] VITALS: BP 98/66
--- NOTE | 2018-01-21 13:56 | CP SOUTH PROGRESS NOTE PSYCH ---
Psych (Inpt) Progress Note Progress Note Include the following elements, when applicable: Involvement in the active treatment of the patient with behavioral observations of the patient and the patient's response to the treatment. Review of the ongoing treatment process in the context of the treatment plan. Indication of how multi-disciplinary staff members are carrying out the treatment plan. Plans for future interventions and recommendations for revision of the treatment plan. Liaison with other physicians/providers. Progress Note: Very anxious, pacing, crying, grimacing, smelling some aromatherapy gel. She states that she has suicidal thoughts about hanging herself when she has panic attacks but has no intention of doing so, and that they resolve once panic attack improves. States that meds are not helping her sufficiently but not wanting to change many of them. focused on her mothers illness, her fathers and overall pressured and in distress MSE: slim middle aged woman, crying, anxious, psychomotor agitation. Her speech is rapid. Her mood is anxious/depressed and affect is full and reactive, congruent. Her thinking is perseverative but able to be directed. Her thought content is positive for depression, anxiety but no delusions are elicited. She has no current suicidal thoughts but admits to them passing when she has panic attack. She is visibly in distress but is able to regulate with ongoing discussion. Her insight is fair and judgment is fair. A: 45 year old woman with anxiety, depressive sx, multiple past suicide attempts , with worsening sx at this time. Having panic like sx. Plan: increase buspar to 15mg three times daily, divide prn clonazepam to 0.5mg q6hrs rather than 1mg q12. Discussed further changes tmr if no benefit of increased dose of buspar, she said thats all she would like for now. Addressed suicidal thinking intermittently with education and managing her panic attacks which she reports are main trigger. Encouraged her to see her mother but if too distressing not focus on her health. No other changes.
[2018-01-21 15:55] VITALS: BP 110/60
[2018-01-21 19:34] VITALS: BP 119/70
[2018-01-22 07:45] VITALS: BP 135/81
[2018-01-22 11:57] VITALS: BP 120/55
[2018-01-22 15:55] VITALS: BP 140/72
--- NOTE | 2018-01-22 15:55 | CP SOUTH PROGRESS NOTE PSYCH ---
Psych (Inpt) Progress Note Progress Note Include the following elements, when applicable: Involvement in the active treatment of the patient with behavioral observations of the patient and the patient's response to the treatment. Review of the ongoing treatment process in the context of the treatment plan. Indication of how multi-disciplinary staff members are carrying out the treatment plan. Plans for future interventions and recommendations for revision of the treatment plan. Liaison with other physicians/providers. Progress Note: States that she is in a month long panic attack. She has been trying to smile and do some behavioral interventions this morning to avert panic attacks. She stated that her family is not helpful b/c they are in complete denial, and she needs to focus on herself only. She states that living with her mother is not helpful for her, even though she can't detach from her. MSE: slim middle aged woman, less anxious and labile, still has psychomotor agitation. Her speech is rapid at times. Her mood is anxiou and affect is labile , crying at times. Thinking is more coherent but still perseverative and pressured at times. Her thought content is positive for depression, anxiety but no delusions are elicited. She has no current suicidal thoughts but notes having them earlier today. She was able to distract herself from them. No hallucinations noted. Her insight is fair and judgment is fair. A: 45 year old woman with anxiety, depressive sx, multiple past suicide attempts , with worsening panic symptoms. Today appears much better compared to yesterday , more redirectable overall. Plan: Has had buspar dosing which has been helpful for her, in addition to dividing clonazepam dosing. No changes at this time.
[2018-01-22 19:39] VITALS: BP 106/52
[2018-01-23 07:36] VITALS: BP 120/60
--- NOTE | 2018-01-23 08:14 | CP SOUTH PROGRESS NOTE PSYCH ---
Psych (Inpt) Progress Note Progress Note Current Medications Buspirone HCl 15 MG 0800,1300,2200 Clonazepam 0.5 MG Q6-PRN PRN Olanzapine 10 MG Q12P PRN Paroxetine HCl 30 MG QPM Quetiapine Fumarate 50 MG QPM Trazodone HCl 50 MG AT BEDTIME NEED.. Vital Signs 01/23 0736 temperature: 98.2 pulse: 77; blood pressure: 120/60 mmHg Mental status examination: Anxiety, some psychomotor agitation, talkative but not pressured. Depressed mood /irritable affect, coherent with some perseveration/obsessiveness; no delusions, on and off thoughts about suicide (last was yesterday); denied hallucinations Assessment: Melissa is a 45-year old woman with history anxiety, depression, multiple past suicide attempts, Plan: Did not want medication changes
[2018-01-23 12:26] VITALS: BP 105/58
[2018-01-23 16:07] VITALS: BP 110/77
--- NOTE | 2018-01-23 18:14 | SOCIAL WORKER PROG NOTE PSYCH ---
Social Work Progress Note Progress Note 1:25pm This automobile service writer met with patient. Patient presented as anxious, depressed and tearful. She discussed struggling with watching and caring for her mother, who has multiple health conditions. Patient stated that she would like to find alternate housing as caring for her mother is triggering her depression and anxiety. Patient stated that she would like to contact her deputy director regarding her disability income. She also stated that she has been in contact with Angela Barth at [facility] regarding housing. Patient stated she is only interested in returning to IOP and not interested in a DBT IOP. Patient stated that she would also like to continue working with her individual therapist, Josefa Cole. Patient reported intermitten SI, she denied HI/AH/VH.
[2018-01-23 20:08] VITALS: BP 110/63
[2018-01-24 08:00] VITALS: BP 95/52
[2018-01-24 12:27] VITALS: BP 116/70
--- NOTE | 2018-01-24 14:28 | CP SOUTH PROGRESS NOTE PSYCH ---
Psych (Inpt) Progress Note Progress Note Vital Signs: temperature: 98.6; pulse: 79 beats/min.; blood pressure: 116/70 mmHg Mental status examination: The patient blamed the buspirone for her symptoms she had last night she reported that she was having palpitations. She denied that it was because of anxiety and she reported that despite having had severe anxiety in the past she usually does not have palpitations The patient reported that her anxiety today is much more manageable than yesterday, there was no psychomotor agitation today. She remains talkative but not pressured. She reported depressed mood/she showed less irritable affect, she was coherent with some perseveration/obsessiveness; There were no delusions, denied thoughts of suicide today denied hallucinations Assessment: Melissa is a 45-year old woman who was admitted to the inpatient psychiatric unit at [facility] because of thoughts of suicide She has history anxiety, depression, and multiple past suicide attempts, Plan: Reduce buspirone to 15 mg twice daily Continue all other medications unchanged
[2018-01-24 15:41] VITALS: BP 119/72
--- NOTE | 2018-01-24 16:36 | SOCIAL WORKER PROG NOTE PSYCH ---
Social Work Progress Note Progress Note 3:08pm This policy writer sales met with patient in the exam room as other rooms were unavailable. She reported that she had not been feeling well due to eating sugar, wheat and flour, which she normally avoids. Patient reported nausea and vomitting, which occured in the sink in the exam room during this meeting. This policy writer sales relayed this to the nursing staff. Patient signed an HENRY for her therapist, Josefa Cole LCSW. She reported her mood as "a little low and a little anxious." She stated that she has been utilizing coping skills of journaling, and when not inpatient, attending Al-Anon, calling friends, going to the gym and going to therapy. Patient expressed interest in continuing with individual therapy twice weekly as well as IOP. She is not interested in [facility] DBT IOP due to the distance and had concerns about affording gas money to go to the [facility]. Patient was informed of the [facility] service, which she refused. Patient stated that she learned two years ago that the [facility] would not allow her to continue on Klonopin. She was agreeable to this policy writer sales contacting them to inquire about whether this policy remains. Patient was not willing to schedule a family meeting with any family and stated that she does not have any friends, as her best friend "left me" in May due to her symptoms. 4:09pm This policy writer sales spoke with Josefa Araiza LCSW by phone. She stated that she would be willing to continue with individual therapy while the patient attends IOP, and recommends DBT IOP. Josefa suggested [facility] as they also provide a DBT IOP program.
[2018-01-24 20:18] VITALS: BP 133/73
[2018-01-25 08:02] VITALS: BP 107/61
[2018-01-25 12:17] VITALS: BP 112/62
--- NOTE | 2018-01-25 14:10 | CP SOUTH PROGRESS NOTE PSYCH ---
Psych (Inpt) Progress Note Progress Note Vital Signs: Temperature: 97.7; pulse: 71 beats/min.; blood pressure: 112/62 mmHg Mental status examination: The patient seemed brighter today She reported that she was still having some palpitations last night, she is sure that it is the buspirone because "I know my body very well" she also added that it happened about half an hour to 40 minutes after taking the buspirone She seemed to be certain that it is not because of anxiety although she reported having had severe anxiety in the past (she added, she usually does not have palpitations when she is anxious or having a panic attack) The patient reported that her anxiety today is manageable there was no psychomotor agitation today. She remains talkative but not pressured. She reported depressed mood/ coherent with some perseveration/obsessiveness; There were no delusions, denied thoughts of suicide today denied hallucinations Assessment: Melissa is a 47-year old woman who was admitted to the inpatient psychiatric unit at [facility] because of thoughts of suicide She has history anxiety, depression, and multiple past suicide attempts, Plan: Increase Paxil to 40 mg daily Increase Remeron to 15 mg at bedtime Continue buspirone 15 mg twice daily Continue all other medications unchanged
[2018-01-25 15:55] VITALS: BP 114/84
--- NOTE | 2018-01-25 16:16 | SOCIAL WORKER PROG NOTE PSYCH ---
Social Work Progress Note Progress Note 10:50am This engineering writer met with patient. She described her mood as "I'm not sad. I'm having heart palpitations from Buspar." Patient stated that she has informed nursing of this and would also discuss this with Dr. Alcocer today. Patient stated that she struggled with sleep last night due to her roommate and was unable to fall asleep until 4am. Patient stated that she has been avoiding sugar, wheat and flour and feeling significantly better physically. Patient was informed that this engineering writer spoke with her individual therapist, Josefa Araiza as well as [place] Galvan at the [facility]. Both recommended DBT IOP. Patient and this engineering writer discussed her questions and concerns regarding DBT and patient was ultimately willing to attend a DBT program. Patient stated that she was concerned that she would need to discontinue the Klonopin, which had been her experience about two years ago at the [facility] DBT IOP. She is not willing to do so. Patient signed HENRY's for [facility] and [facility] and was agreeable to a referral to their programs if she may continue with the Klonopin. Patient stated that she is not willing to consider [facility] for treatment. Patient stated that she would like to contact [facility] regarding the SSDI and was provided with their phone number ([phone]). This engineering writer left a vm for the [facility] program with this engineering writer's call back number. This engineering writer spoke with Glenys at the [facility]. She confirmed that they do offer an IOP DBT and that their policy would not require her to discontinue the Klonopin. Glenys explained that the patient would need to utilize regular walk in assessment hours on Mondays, Tuesday and Wednesdays at which time she would be assessed for their outpatient programs. This could be either IOP or DBT IOP. She would also be seen by a prescriber on the day of the intake. She is requested to arrive by 7:45am for the intake.
--- NOTE | 2018-01-25 17:32 | SOCIAL WORKER PROG NOTE PSYCH ---
Social Work Progress Note Progress Note This movie writer informed patient of the conversation with [facility] and the message left for [facility]. She is willing to go to [facility] during their walk in hours, but would like to see if this movie writer receives a call back from [place].
[2018-01-25 19:45] VITALS: BP 112/65
[2018-01-26 07:40] VITALS: BP 114/70
[2018-01-26] MEDS ORDERED: BUSPIRONE HCL15 M1 PO (10:24)
[2018-01-26] MEDS ORDERED: KLONOPIN0.5 M1 PO (10:24)
[2018-01-26] MEDS ORDERED: REMERON15 M2 PO (10:24)
[2018-01-26 12:14] VITALS: BP 106/61
--- NOTE | 2018-01-26 13:49 | CP SOUTH PROGRESS NOTE PSYCH ---
Psych (Inpt) Progress Note Progress Note Vital Signs: Temperature: 98.2 degrees Fahrenheit; pulse: 72 beats/min.; BP: 106 /61 mmHg Mental status examination: The patient was alert, and oriented to time, place, and person. Affect seemed bright. She reported that she-last night-slept the best sleep she has had since her admission. The patient reported that her anxiety today is manageable there was no psychomotor agitation today. She remains talkative but not pressured. She reported depressed mood/ She was coherent with some perseveration/obsessiveness; There were no delusions, denied thoughts of suicide today She denied hallucinations Assessment: Melissa is a 47-year old woman who was admitted to the inpatient psychiatric unit at [facility] because of thoughts of suicide She has history anxiety, depression, and multiple past suicide attempts, Plan: Continue Paxil 40 mg at bedtime Continue Remeron 15 mg at bedtime Continue buspirone 15 mg twice daily Continue all other medications unchanged Slated for discharge tomorrow
--- NOTE | 2018-01-26 15:44 | SOCIAL WORKER PROG NOTE PSYCH ---
Social Work Progress Note Progress Note HUYEN PÉREZ [id number] 1970 HUYEN PÉREZ [id number] Pended Authorization # Client Authorization # Type of Request [id number] CONCURRENT Date of Admission/ Start of Services Requested From Submission Date 01/19/2018 01/26/2018 01/26/2018
[2018-01-26 15:56] VITALS: BP 101/64
[2018-01-26 19:54] VITALS: BP 127/65
[2018-01-27 07:41] VITALS: BP 115/71
--- NOTE | 2018-01-27 08:15 | Patient Discharge Instructions ---
Psych Discharge Inst General Discharge Information Reason for Admission: Pt is a 47 year old single female presenting to the ED with suicidal ideation. Psy Discharge Primary Diag+ MDD Summary Tests/Major Procedures Lab Hct 33.5 % L 01/18/18 1324 Hgb 11.5 G/DL L 01/18/18 1324 Studies Pending at DC: None Patient Instructions Contact Information Your Psychiatrist on [facility] was Derick Alcocer MD * If you are experiencing an emergency related to this hospitalization, please call [phone] to contact the treating psychiatrist or the psychiatrist-on- call. * To Request a copy of your medical records, please contact the Medical Records Department at [phone]. * To request results of studies pending at the time of discharge, please call [phone]. * Continue your Medications until directed to stop by your Healthcare provider. General Medication Information Please continue to take your new medications and your continued home medications , unless otherwise indicated on your discharge medication list, or unless directed by your MD or ENGINE TESTER to stop them. Special Instructions Diet Regular Activity Normal - Tobacco Use Treatment Offered Post DC Medications Offered: Not Applicable Post DC Tobacco Treatment Plan: Not Applicable - EtOH/Drug Use D/O Treatment Offered Post DC Medications Offered: NA-No EtOH/Drug Use D/O Post DC EtOH/SubAbuse [place] Plan: NA-No EtOH/Drug Use D/O Metabolic Screening Patient on a neuroleptic(s) . Enter below results for Hemoglobin A1C, and lipid panel if obtained during the last 365 days. BMI: 22.800 Blood Pressure: 115/71 Laboratory Results From [facility] (If applicable): Lab Cholesterol 194 MG/DL 01/18/18 1324 Cholesterol/HDL Ratio 5 % H 01/18/18 1324 HDL Cholesterol 42 mg/dL 01/18/18 1324 Hemoglobin A1c 5.1 % 01/18/18 1324 LDL Cholesterol, Calc 132 mg/dL H 01/18/18 1324 Triglycerides 104 mg/dL 01/18/18 1324 Advance Directives Does the Patient have Medical Advance Directives No/Refused further info Does Pt have Psychiatric Advance Directives? No/Per pt req info provid Does Patient have a Designated Surrogate Decision Maker: No Information About Psychiatric Advance Directives Provided? Unable to Comprehend Discharge Plan Post Hospital Treatment Plan: IOP-DBT
[2018-01-27] MEDS ORDERED: PAXIL40 M1 PO (10:12)
[2018-01-27 11:59] VITALS: BP 125/62
--- NOTE | 2018-01-27 12:22 | CP SOUTH PROGRESS NOTE PSYCH ---
Psych (Inpt) Progress Note Progress Note Vital Signs Date Time Temp Pulse Resp B/P B/P Pulse O2 O2 Flow FiO2 Mean Ox Delivery Rate 01/27 1159 81 125/62 01/27 0741 97.6 76 115/71 01/26 1954 98.2 75 127/65 01/26 1556 75 101/64 Mental status examination: The patient was alert, and oriented to time, place, and person. Patient's affect seemed bright. The patient reported that her anxiety today is manageable, there was no psychomotor agitation today. The patient was talkative but not pressured. She reported feeling less depressed / She was coherent with some perseveration/obsessiveness; There were no delusions, denied thoughts of suicide today; she denied hallucinations Assessment: Melissa is a 47-year old woman who was admitted to the inpatient psychiatric unit at [facility] because of thoughts of suicide. She has history anxiety, depression, and multiple past suicide attempts, the patient has shown moderate improvement since her admission to the inpatient psychiatric unit. She has denied thoughts of suicide for the past 3 days. She feels ready for discharge. Plan: D/C Home today
--- NOTE | 2018-01-27 14:52 | DISCHARGE SUMMARY REPORT-PSYCH ---
Visit Information Visit Dates/Diagnosis' Admission Date: 01/19/2018 Discharge Date: 01/27/18 Reason for Admission: Pt is a 47 year old single female presenting to the ED with suicidal ideation. 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 Please see the H&P notes by the hospitalist/clinical lab scientist in the patient's electronic health record. Allergies: Coded Allergies: amoxicillin (Mild, STOMACH ACHES 01/18/18) clavulanic acid (Mild, STOMACH ACHES 01/18/18) latex (Mild, RASH 01/18/18) procaine (Intermediate, HYPERTENSION 01/06/16) benztropine (MYDRIASIS FOR 1 MONTH 01/06/16) Hospital Course/TX Response: The patient's initial psychiatric assessment was done by Gianluca Vazquez APRN on . His impression was the patient was suffering from major depressive disorder with anxious distress as well as having history of posttraumatic stress and personality traits of borderline nature as well as disruptive mood dysregulation disorder. The patient was resumed on her outpatient psychiatric medications. January 21, 2018: increase buspar to 15mg three times daily, divide prn clonazepam to 0.5mg q6hrs rather than 1mg q12. Discussed further changes tmr if no benefit of increased dose of buspar, she said thats all she would like for now. Addressed suicidal thinking intermittently with education and managing her panic attacks which she reports are main trigger. Encouraged her to see her mother but if too distressing not focus on her health. No other changes. January 22, 2018: No changes were made on Tuesday, January 22, 2018. Covering psychiatrist was Dr. Payton Silva MD January 23, 2018: The patient did not want any medication changes January 24, 2018:Reduce buspirone to 15 mg twice daily; Continue all other medications unchanged. January 25, 2018: Increase Paxil to 40 mg daily Increase Remeron to 15 mg at bedtime Continue buspirone 15 mg twice daily Continue all other medications unchanged January 26, 2018: No changes in medications. Patient's condition on the day of discharge, January 27, 2018: Mental status examination: The patient was alert, and oriented to time, place, and person. Patient's affect seemed bright. The patient reported that her anxiety today is manageable, there was no psychomotor agitation today. The patient was talkative but not pressured. She reported feeling less depressed / She was coherent with some perseveration/obsessiveness; There were no delusions, denied thoughts of suicide today; she denied hallucinations Assessment: Melissa is a 47-year old woman who was admitted to the inpatient psychiatric unit at [facility] because of thoughts of suicide. She has history anxiety, depression, and multiple past suicide attempts, the patient has shown moderate improvement since her admission to the inpatient psychiatric unit. She has denied thoughts of suicide for the past 3 days. She feels ready for discharge. Plan: D/C Home today Discharge HBIPS - Tobacco Use Treatment Offered Post DC Medications Offered: Not Applicable Post DC Tobacco Treatment Plan: Not Applicable - EtOH/Drug Use D/O Treatment Offered Post DC Medications Offered: NA-No EtOH/Drug Use D/O Post DC EtOH/SubAbuse TX Plan: NA-No EtOH/Drug Use D/O Metabolic Screening - Screen if on a Neuroleptic Medication - Metabolic screening should include: - Blood Pressure, BMI, Glucose or Hgb A1c, & a - Lipid profile from within the past 365 days. Metabolic Screening Patient on a neuroleptic(s) . Enter below results for Hemoglobin A1C, and lipid panel if obtained during the last 365 days. BMI: 22.800 Blood Pressure: 125/62 Laboratory Results From [facility] (If applicable): Lab Cholesterol 194 MG/DL 01/18/18 1324 Cholesterol/HDL Ratio 5 % H 01/18/18 1324 HDL Cholesterol 42 mg/dL 01/18/18 1324 Hemoglobin A1c 5.1 % 01/18/18 1324 LDL Cholesterol, Calc 132 mg/dL H 01/18/18 1324 Triglycerides 104 mg/dL 01/18/18 1324 Discharge Instructions General Discharge Information Multiple Neuroleptics: Not Applicable Discharge Diet Regular Discharge Activity Normal DC Disposition: Home Referrals Ordered Referrals Provider Referral 01/30/18 For Groups: [[facility]] [facility] [address] [place] [address] Patient will utilize walk-in hours on 01/30/18 at 7:45am for an intake assessment. Patient would like to engage in DBT IOP. Schedule for walk-in hours: Mondays, Tuesdays and Wednesdays at 7:45am Provider Referral 01/30/18 For Groups: [Josefa Araiza LCSW] Josefa Araiza LCSW [address] [place] [place], [place] [phone] Individual therapy appointment: 01/30/18, at 1pm Prescriptions Stop taking the following medications: Clonazepam (Klonopin) 1 MG TABLET ORAL 2 x Daily as needed as needed for ANXIETY Mirtazapine (Remeron) 15 MG TABLET ORAL Every night Qty = 7 Paroxetine HCl (Paroxetine HCl) 30 MG TABLET ORAL DAILY Metronidazole (Metronidazole) (Unknown Strength) GEL.W.APPL Qty = 70 Metronidazole (Metronidazole) 500 MG TABLET ORAL TWICE DAILY Qty = 14 Continue taking these medications: Cholecalciferol (Vitamin D3) 1,000 UNIT TABLET 1 Tablet ORAL DAILY Comments: Last Taken:01/27/18 Time:8am Multivitamin (Multiple Vitamins) 1 EACH TABLET 1 Tablet ORAL DAILY Comments: Last Taken:01/27/18 Time:8am Ferrous Sulfate (Ferrous Sulfate) 325 MG (65 MG IRON) TABLET 1 Tablet ORAL Every 3 days Comments: Last Taken:01/27/18 Time:8am Quetiapine Fumarate (Seroquel) 50 MG TABLET 50 Milligram ORAL AT BEDTIME Qty = 14 Instructions: Take 1 tab po at bedtime. Comments: Last Taken:01/26/18 Time:10pm Norethindrone-E.estradiol-Iron (Microgestin Fe 1-20 Tablet) 1 MG-20 MCG (21)/75 MG (7) TABLET 1 Tablet ORAL DAILY Qty = 84 Comments: Last Taken:01/27/18 Time:8am Lactobac #2-S. Therm-Bifido #1 (Vsl#3 Capsule) 112.5 BILLION CELL CAPSULE 1 Capsule ORAL DAILY Qty = 30 Comments: Last Taken:01/27/18 Time:8am Omeprazole (Omeprazole) 40 MG CAPSULE. 1 Capsule ORAL DAILY Qty = 30 Comments: not given in hospital Aspirin (Ecotrin*) 81 MG TABLET. 1 Tablet ORAL DAILY Comments: Last Taken:01/27/18 Time:8am Ascorbic Acid (Vitamin C) 500 MG CAPSULE 1 Capsule ORAL DAILY Comments: Last Taken:01/27/18 Time:8am Start taking the following new medications: Clonazepam (Klonopin) 0.5 MG TABLET 0.5 Milligram ORAL EVERY 6 HOURS NEEDED as needed for ANXIETY Qty = 45 No Refills Instructions: maximum of 3 tabs per day Comments: Last Taken:01/25/18 Time:10pm Mirtazapine (Remeron) 15 MG TABLET 15 Milligram ORAL AT BEDTIME Qty = 15 No Refills Comments: Last Taken:01/26/18 Time:10pm Buspirone HCl (Buspirone HCl) 15 MG TABLET 15 Milligram ORAL 0800,1700 Qty = 15 No Refills Comments: Last Taken:01/27/18 Time:8am Paroxetine HCl (Paxil) 40 MG TABLET 1 Tablet ORAL TAKE AT BEDTIME Qty = 15 No Refills Comments: Last Taken:01/26/18 Time:10pm Studies Pending at Discharge None Copies To: Martha Greenfield
--- NOTE | 2018-01-27 16:58 | SOCIAL WORKER PROG NOTE PSYCH ---
Social Work Progress Note Progress Note 11:15am This automatic typewriter inspector met with patient. She was agreeable to discharge today with the plan to attend the [facility] intake via walk in on Tuesday at 7:45am. She also accepted an indidivual therapy appointment with Josefa Araiza for Tuesday at 1pm. Patient stated that she is connected with a banking services clerk support group and plans to continue attending their groups. Patient identified a safety plan: "If I get suicidal, I'll come to the hospital." She was informed that she will be provided with crisis numbers and warm lines upon discharge, which she stated that she was agreeable to utilizing. Patient denied SI/HI/AH/VH. Faxed Referral(s) Referred To: [facility] Transition of Care Documents sent: Health Summary Faxed to: Adult Behavioral [facility] Fax #: [phone] Faxed by: Martin Jackson LCSW Date faxed: 01/30/18 Time Faxed: [phone]
== END 2018-01-27 14:22 | DRG 754 ==
LOC: ERH 12:25 → CP SOUTH 01-19 11:47 → ERHI 01-19 11:47 → ENTRNSPT 01-19 14:47 → EDTRNSPTSTS 01-19 14:55 → EDTRNSPT 01-19 14:55 → CP SOUTH 01-19 15:11 → CMPTRNSPT 01-19 15:14 → CP SOUTH 01-20 15:56
PROVIDERS: Emergency Medicine
DX: F32.9 Major depressive disorder, single episode, unspecified (principal)
CPT/HCPCS: 80307; 81001; 81025; G0463; J3490

== ENCOUNTER 2018-03-08 15:35 | Inpatient (IN) | payer OTHER ==
[~2018-03-08] VITALS: Ht 160 cm; Wt 59.5 kg
[~2018-03-08 15:35] MED LIST changes: +ASPIRIN EC81 M1 PO; +BUSPIRONE HCL15 M1 PO; +KLONOPIN0.5 M1 PO; +METRONIDAZOLE500 M1 PO; +METRONIDAZOLE70 GM; +MICROGESTIN FE1 EAC1 PO; +OMEPRAZOLE40 M1 PO; +VITAMIN C500 M9 PO; +VSL#3 CAPSULE1 EACH PO
--- NOTE | 2018-03-08 16:20 | ED PSYCHIATRIC COMPLAINT ---
History of Present Illness General Chief Complaint: General Adult Stated Complaint: BIBA FOR PANIC ATTACK Source: patient Exam Limitations: no limitations Vital Signs & Intake/Output Vital Signs & Intake/Output Vital Signs Date Time Temp Pulse Resp B/P B/P Pulse O2 O2 Flow FiO2 Mean Ox Delivery Rate 03/08 2025 98.0 83 131/72 03/08 1803 98.4 84 18 138/74 100 Room Air 03/08 1655 Room Air 03/08 1538 98.6 96 18 140/80 99 Room Air Allergies Coded Allergies: amoxicillin (Mild, STOMACH ACHES 01/18/18) clavulanic acid (Mild, STOMACH ACHES 01/18/18) latex (Mild, RASH 01/18/18) procaine (Intermediate, HYPERTENSION 01/06/16) benztropine (MYDRIASIS FOR 1 MONTH 01/06/16) Reconcile Medications Ascorbic Acid (Vitamin C) 500 MG CAPSULE 1 CAP PO DAILY SUPPLEMENT (Reported) Aspirin (Ecotrin*) 81 MG TABLET.DR 1 TAB PO DAILY HEART/BLOOD (Reported) Buspirone HCl 15 MG TABLET 15 MG PO 0800,1700 anxiety Cholecalciferol (Vitamin D3) 1,000 UNIT TABLET 1 TAB PO DAILY SUPPLEMENT ( Reported) Clonazepam (Klonopin) 0.5 MG TABLET 0.5 MG PO Q6-PRN PRN ANXIETY maximum of 3 tabs per day Ferrous Sulfate 325 MG (65 MG IRON) TABLET 1 TAB PO Q3D SUPPLEMENT (Reported) Lactobac #2-S. Therm-Bifido #1 (Vsl#3 Capsule) 112.5 BILLION CELL CAPSULE 1 CAP PO DAILY PROBIOTIC (Reported) Mirtazapine (Remeron) 15 MG TABLET 15 MG PO AT BEDTIME depression/anxiety Multivitamin (Multiple Vitamins) 1 EACH TABLET 1 TAB PO DAILY SUPPLEMENT ( Reported) Norethindrone-E.estradiol-Iron (Microgestin Fe 1-20 Tablet) 1 MG-20 MCG (21)/75 MG (7) TABLET 1 TAB PO DAILY CONTROL (Reported) Omeprazole 40 MG CAPSULE.DR 1 CAP PO DAILY GI (Reported) Paroxetine HCl (Paxil) 40 MG TABLET 1 TAB PO QHS depression and anxiety Quetiapine Fumarate (Seroquel) 50 MG TABLET 50 MG PO AT BEDTIME anxiety/ insomnia Take 1 tab po at bedtime. Triage Note: 47 YO FEMALE BIBA TO TRIAGE FROM HOME FOR ANXIETY ATTACK. PT STATES HX OF SAME. Triage Nurses Notes Reviewed? yes HPI: Patient presents for evaluation of severe anxiety worsening over the past few days despite her usual medications. She feels she's got some sort of chemical problems in her body is making her feel anxious. (Rachell KINNEY,Beltran Light) Past History Travel History Traveled to [place] past 21 day No Medical History Any Pertinent Medical History? see below for history Neurological: NONE EENT: allergies Cardiovascular: hyperlipidemia Respiratory: NONE Gastrointestinal: 2 polyps removed. Hepatic: NONE Renal: NONE Musculoskeletal: NONE Psychiatric: anxiety, depression, 20YRS AGO-SELF INJURIOUS CUTTING TO LEFT ARM Endocrine: vitamin D deficiency Blood Disorders: anemia Cancer(s): NONE EDGE STAINER/Reproductive: SHAR-MENAPAUSAL Other Medical Hx: Patient had a mild normocytic anemia during recent [facility] admission but H&H normal in [facility]. History of MRSA: No History of VRE: No History of CDIFF: No Surgical History Surgical History: non-contributory Psychosocial History Who do you live with Mother Services at Home None What is your primary language Mexican Tobacco Use: Never used Family History Family History, If Any: MOTHER Relation not specified for: FH: cancer Hx Contributory? No (Rachell KINNEY,Beltran Light) Review of Systems Review of Systems Constitutional: Reports: no symptoms. EENTM: Reports: no symptoms. Respiratory: Reports: no symptoms. Cardiovascular: Reports: no symptoms. GI: Reports: no symptoms. Genitourinary: Reports: no symptoms. Musculoskeletal: Reports: no symptoms. Skin: Reports: no symptoms. Neurological/Psychological: Reports: see HPI. Hematologic/Endocrine: Reports: no symptoms. Immunologic/Allergic: Reports: no symptoms. All Other Systems: Reviewed and Negative (Rachell KINNEY,Beltran Light) Physical Exam Physical Exam General Appearance: SEE BELOW Neurological/Psychiatric: SEE BELOW Comments: General: Alert, calm, cooperative Head: Normocephalic, atraumatic Eyes: Normal inspection, no nystagmus, EOMI Ears: Normal inspection Nose: Normal inspection Throat: Moist mucosa Neck: Supple, no goiter Heart: Regular rate and rhythm, no murmurs rubs or gallops Lungs: Clear to auscultation bilaterally with good air entry Abdomen: Soft nontender nondistended, normal bowel sounds Chest: Nontender Extremities: Normal range of motion grossly, mild tremors present, no cyanosis clubbing or edema of the upper extremities Neurologic: cranial nerves II through XII grossly intact, speech clear, gait normal Psychiatric: Extremely anxious, pacing, pressured speech No apparent delusions or hallucinations (Rachell KINNEY,Beltran Light) SAD PERSONS Done? patient not suicidal (Danielle KINNEY,Blas) Progress Differential Diagnosis: ANXIETY, BIPOLAR DISORDER, DRUG USE, HYPERTHYROIDISM Plan of Care: Orders Procedure Date/time Status Regular Diet 03/09 B Active Vital Signs 03/08 2025 Active Inpt Psych Teach/Educate 03/08 2025 Active Nutritional Intake, Monitor 03/08 2025 Active Inpt Psych Auricular Acupunctu 03/08 2025 Active Intake & Output 03/08 2018 Complete VDRL 03/08 182 Active VITAMIN D1,25 DIHYDROXY Ref$ 03/08 181 Active TSH REFLEX 03/08 181 Active TOTAL IRON BINDING CAPACITY 03/08 181 Active LIPID PANEL 03/08 181 Active HUMAN BETA HCG SCREEN 03/08 181 Active GLYCOSYLATED HGB 03/08 181 Active SERUM IRON 03/08 181 Active Admit to inpatient psych 03/08 1801 Active Vital Signs 03/08 180 Complete Activity/Ambulation 03/08 180 Active Patient Safety Monitor 03/08 162 Complete URINE DRUG SCREEN FOR ER ONLY 03/08 1621 Complete ETHANOL 03/08 1621 Complete CBC WITHOUT DIFFERENTIAL 03/08 162 Complete BASIC METABOLIC PANEL 03/08 162 Complete ED CRISIS PSYCH CONSULT 03/08 1621 Active Current Medications Sig/Hortencia Start time Last Medication Dose Stop Time Status Admin Omeprazole 40 MG 1700 03/09 1700 AC (Prilosec) Ascorbic Acid 500 MG DAILY 03/09 900 AC (Vitamin C) Aspirin Buffered 81 MG DAILY 03/09 900 AC (Ecotrin) Cholecalciferol 1,000 IU DAILY 03/09 900 AC (Vitamin D) Ferrous Sulfate 325 MG Q72H 03/09 900 AC (Feosol) Lactobacillus 1 CAP DAILY 03/09 900 AC Acidophilus (Probiotic) Multivitamins 1 TAB DAILY 03/09 900 AC (Theragran Vitamins) Buspirone HCl 15 MG 0800,1700 03/09 0800 AC (Buspar) Mirtazapine 15 MG AT BEDTIME 03/08 2100 AC (Remeron) Paroxetine HCl 40 MG AT BEDTIME 05/02 2100 AC (Paxil) Quetiapine Fumarate 50 MG AT BEDTIME 03/08 2100 AC (SEROquel) Clonazepam 0.5 MG TID PRN 03/08 1815 AC (KlonoPIN) 03/15 1814 Laboratory Tests 03/08/18 1822: Urine Opiates Screen < 100, Methadone Screen 46, Barbiturate Screen < 60, Ur Phencyclidine Scrn < 6.00, Amphetamines Screen < 100, U Benzodiazepines Scrn < 85, Urine Cocaine Screen < 50, Urine Cannabis Screen < 5.00 03/08/18 1639: Anion Gap 8, Estimated GFR > 60, BUN/Creatinine Ratio 21.3, Glucose 80, Calcium 8.5, CBC w Diff NO MAN DIFF REQ, RBC 3.95 L, MCV 95.9, MCH 31.9 H, MCHC 33.2, RDW 13.1, MPV 7.6, Gran % 67.8, Lymphocytes % 23.3, Monocytes % 6.6, Eosinophils % 1.7, Basophils % 0.6, Absolute Granulocytes 5.9, Absolute Lymphocytes 2.0, Absolute Monocytes 0.6, Absolute Eosinophils 0.1, Absolute Basophils 0.1, Serum Alcohol < 10.0 Comments: 03/08/2018 7:58:04 PM patient signed out to Dr. Santos at shift change agent. (Rachell KINNEY,Beltran Light) Departure Departure Condition: Stable Referrals: Eve Tuttle DO (PCP/Family) Departure Forms: Customer Survey General Discharge Information (Rachell KINNEY,Beltran Light) Departure Disposition: STILL A PATIENT Clinical Impression Primary Impression: Major depression Psych Admission Note Psychiatric Admission: I have seen and evaluated HUYEN PÉREZ. I have also reviewed all the pertinent lab results and diagnostic results. HUYEN PÉREZ will be admitted to our inpatient Psychiatric unit for treatment and care. (Blas Santos MD)
[2018-03-08 16:48] LABS: ABSOLUTE BASOPHIL COUNT 0.1 /CUMM (0.0-0.2); ABSOLUTE EOSINOPHIL COUNT 0.1 /CUMM (0.0-0.7); ABSOLUTE GRANULOCYTE CT 5.9 /CUMM (1.4-6.5); ABSOLUTE MONOCYTE COUNT 0.6 /CUMM (0.10-0.60); BASOPHIL % 0.6 % (0.0-2.0); EOSINOPHIL % 1.7 % (0-5); GRANULOCYTE % 67.8 % (42.2-75.2); HEMATOCRIT 37.8 % (37-47); MEAN CORPUSCULAR HGB 31.9 PG (27.0-31.0); MEAN CORPUSCULAR HGB CONC 33.2 G/DL (33.0-37.0); MEAN CORPUSCULAR VOLUME 95.9 FL (81.0-99.0); MEAN PLATELET VOLUME 7.6 FL (7.4-10.4); PLATELET COUNT 343 /CUMM (130-400); RBC DISTRIBUTION WIDTH 13.1 % (11.5-14.5); RED BLOOD CELL CT 3.95 /CUMM (4.20-5.40); WHITE BLOOD CELL COUNT 8.7 /CUMM (4.8-10.8)
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
[2018-03-08 20:25] VITALS: BP 131/72
[2018-03-09 07:44] VITALS: BP 122/77
--- NOTE | 2018-03-09 10:32 | CPS PROVIDER INIT ASMT PSYCH ---
Psychiatric Admission Insurance Sales Producer's Note Reviewed: Yes Patient Seen and Examined: Yes Identifying Information: Patient is a 47 year old, single, female who presented to the ED via ambulance. Chief Complaint: "I'm having panic attacks!" Reaction to Hospitalization: The patient was admitted voluntarily History of Present Illness Onset of Illness: She called 911 due to having a panic attack and states my meds arent working. She reports a history of worsening symptoms during menstruation. This is according to the intake clinician's note: " She was recently hospitalized on CPS from 01/19/18-01/27/18 and was discharged to [facility] DBT program. She also has a therapist, Josefa Cole [facility] who she sees weekly. She reports Im feeling suicidal from the panic and states I cant calm myself down. She was tearful during this evaluation and state I cant calm myself down. She reports SI with a plan to drink, take my pills and hang myself. She states she does not want to kill herself, but fears she may act impulsively. She left her mother a note stating she was going to the hospital and she does not want to . Her mother and sister came to the ED to visit the patient. Patient denies SI/AH/VH. Circumstances Leading to Admission: See above Problem(s) Justifying Need for Admission: See above Past Psychiatric History Past Diagnosis(es)- if any: Dx: MDD recurrent severe with anxious distress --hx suicide attempts (F33.2), Disruptive mood dysregulation disorder (F34.8), PTSD (F43.10), Borderline Personality Disorder, r/o PMDD hypercholesterolemia, intermittent back/ shoulder/ neck pain, hx anemia Past Precipitating Factors- if any: Mother's illness reportedly dementia - Include inpatient and outpatient treatment Treatment History: Multiple CPS admissions, [facility]. Private therapy Josefa Araiza. 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 November 2015 CPS for suicide attempt via OD discharged to [facility] December 2015 [place] December 2015 CPS suicidal ideation and anxiety February 2017 CPS suicidal ideation History of Suicide Attempts or Gestures suicide attempt at age 18 cutting wrists and OD on pills and alcohol suicide attempt age 45 OD, required 4 days in ICU, client appears to minimize severity Substance Abuse History: The patient denied history of alcohol abuse and other substance use Allergies: Coded Allergies: amoxicillin (Mild, STOMACH ACHES 01/18/18) clavulanic acid (Mild, STOMACH ACHES 01/18/18) latex (Mild, RASH 01/18/18) procaine (Intermediate, HYPERTENSION 01/06/16) benztropine (MYDRIASIS FOR 1 MONTH 01/06/16) Home Med List: Ascorbic Acid (Vitamin C) 500 MG CAPSULE 1 CAP PO DAILY SUPPLEMENT (Reported) Entered as Reported by Mimi Mueller on 01/18/18 190 Aspirin (Ecotrin*) 81 MG TABLET. 1 TAB PO DAILY HEART/BLOOD (Reported) Entered as Reported by Mimi Mueller on 01/18/18 190 Buspirone HCl 15 MG TABLET 15 MG PO 0800,1700 anxiety #15 TAB Prescribed by Derick Alcocer MD on 01/26/18 Cholecalciferol (Vitamin D3) 1,000 UNIT TABLET 1 TAB PO DAILY SUPPLEMENT ( Reported) Entered as Reported by Brian Roy on 01/05/16 1410 Ferrous Sulfate 325 MG (65 MG IRON) TABLET 1 TAB PO Q3D SUPPLEMENT (Reported) Entered as Reported by Brian Roy on 02/07/17 1139 Lactobac #2-S. Therm-Bifido #1 (Vsl#3 Capsule) 112.5 BILLION CELL CAPSULE 1 CAP PO DAILY PROBIOTIC #30 (Reported) Entered as Reported by Mimi Mueller on 01/18/18 190 Mirtazapine (Remeron) 15 MG TABLET 15 MG PO AT BEDTIME depression/anxiety #15 TAB Prescribed by Derick Alcocer MD on 01/26/18 Multivitamin (Multiple Vitamins) 1 EACH TABLET 1 TAB PO DAILY SUPPLEMENT ( Reported) Entered as Reported by Brian Roy on 01/05/16 1410 Norethindrone-E.estradiol-Iron (Microgestin Fe 1-20 Tablet) 1 MG-20 MCG (21)/75 MG (7) TABLET 1 TAB PO DAILY CONTROL #84 (Reported) Entered as Reported by Mimi Mueller on 01/18/18 1906 Omeprazole 40 MG CAPSULE. 1 CAP PO DAILY GI #30 (Reported) Entered as Reported by Mimi Mueller on 01/18/18 1907 Paroxetine HCl (Paxil) 40 MG TABLET 1 TAB PO QHS depression and anxiety #15 TAB Prescribed by Derick Alcocer MD on 01/27/18 Quetiapine Fumarate (Seroquel) 50 MG TABLET 50 MG PO AT BEDTIME anxiety/ insomnia #14 TAB Prescribed by Doris Bird APRN on 03/17/17 - Include any medical condition(s) that may - impact the patient's recovery/remission Past History Medical History Neurological: NONE EENT: allergies Cardiovascular: hyperlipidemia Respiratory: NONE Gastrointestinal: 2 polyps removed. 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 History of MRSA: No History of VRE: No History of CDIFF: No Isolation History: Standard Surgical History Surgical History: non-contributory Psychiatric Family/Social Hx Family History Psychiatric Illness: Sister Jovita - anxiety Sister Elham - PTSD, of alcoholism 16 years ago. Father - depressed. Substance Use: Sister Elham - of EtOH Sister Jovita - binge drinker Suicides: No completed suicides, her sister (Elham attempted suicide a number of times Social History Living Situation: Lives with mother Significant Relationships (family/friends): Mother, some friends, her Al-Radha vann on sponsor, Education: Assoc degree - [employer]. Vocation/Occupation: [employer] Has been unemployed for several years. Legal: Denies current legal entanglements Healthly Behaviors Screening Tobacco Screening Tobacco Use from ED Docu: Never used - If tobacco counseling indicated - the following topics are required. - #1 Recognizing dangerous situations. - #2 Coping Skills. - #3 Basic information about quitting. Status of Tobacco Cessation Counseling: Not Applicable Cessation Med Status Not Applicable Alcohol Screening - ETOH screen POS if BAL >=80 or Audit-C>= M4/F3 Audit-C Score from Diag Assess: 0 Blood Alcohol Level: Laboratory Tests 03/08 1639 Toxicology Serum Alcohol (<10 MG/DL) < 10.0 Alcohol Use Screening Results: Neg per Audit C &/or BAL - If ETOH counseling indicated - the following topics are required. - #1 Express concern about the patient's - drinking at unhealthy levels, include informing - of national norms for moderate drinking: - men <= 14 drinks/week, max 4 drinks/occasion - women <= 7 drinks/week, max 3 drinks/occasion - #2 Providing feedback, including linking alcohol to - negative physical effects (liver injury, hypertension) - negative emotional effects (relationship problems and - depression) - negative occupational consequences (reduced work - performance) - #3 Advising the patient to abstain from alcohol or - to drink below national norms for moderate drinking - (as listed above). Status of ETOH Use Counseling: N/A B/C NO ETOH Use Metabolic Screening - Screen if on a Neuroleptic Medication - Metabolic screening should include: - Blood Pressure, BMI, Glucose or Hgb A1c, & a - Lipid profile from within the past 365 days. Metabolic Screening Patient on a neuroleptic(s) . Enter below results for Hemoglobin A1C, and lipid panel if obtained during the last 365 days. BMI: 23.200 Blood Pressure: 122/77 Laboratory Results From [facility] (If applicable): Lab Amylase 48 U/L 11/14/15 1015 Cholesterol 198 MG/DL 03/08/18 2350 Cholesterol/HDL Ratio 4 % 03/08/18 2350 HDL Cholesterol 50 mg/dL 03/08/18 2350 Hemoglobin A1c 5.1 % 03/08/18 2350 LDL Cholesterol, Calc 122 mg/dL 03/08/18 2350 Lipase 115 U/L 11/14/17 1358 Triglycerides 131 mg/dL 03/08/18 2350 Exam and Plan Mental Status Examination Ambulation Status: The patient has steady gait Appearance: Unremarkable Attitude towards examiner: Argumentative Psychomotor activity: Slightly increased psychomotor activity Behavior: No abnormal behaviors Quality of speech: Talkative with mild pressure Affect: Full range of affect Mood: Anxious depressed and irritable Suicidal Ideation: Was having suicidal ideation as of yesterday Homicidal Ideation: Denied homicidal ideation Hallucinations: Denied hallucinations Paranoid/Delusional Material: Denied feeling paranoid, there were no delusions during the interview Difficulties with thought organization: No difficulties with thought organization Insight: Partial insight Judgment: Questionable judgment Orientation: Alert and oriented to time, place and person Cognition: Good attention and concentration and information processing Memory Function: No short-term memory impairment Estimate of intellectual functioning: Average Assets/Strengths Patient Identified Assets/Strengths: Patient is intelligent and resourceful Impression/Plan Impression and Plan: 47-year-old admitted to the inpatient psychiatric unit because of increasing depression and thoughts of suicide - Include all active medical diagnosis that require tx DSM 5 Diagnosis(es): 1. MDD recurrent severe with anxious distress-(F33.2), 2. Disruptive mood dysregulation disorder (F34.8), 3. Borderline Personality Disorder - Initial Tx Plan for Active Psych & Medical Conditions Treatment Plan: Inpatient psychiatric care with safety checks every 15 minutes Biopsychosocial assessment, collateral information, and aftercare planning and Nursing assessments, vital signs, and patient education and Increase Paxil to 50 mg at bedtime Continue all other medications unchanged - Factors that would help patient function - in a less restrictive setting. Factors: Patient would be discharged once she has 2 consecutive days without thoughts of suicide
--- NOTE | 2018-03-09 11:21 | SOCIAL WORKER PROG NOTE PSYCH ---
See Addendum Social Work Progress Note Progress Note Met with Melissa at 10am this morning. She was working on coloring, which seems to be a very grounding technique for her. She reported reason for admission was high anxiety, which she couldn't calm from. This leads her to then have suicidal thoughts. She called 911 herself instead of acting on anything. She reports being "proud" that she did this. She talked alot about her menstral cycle and how pms always leads to her "body chemistry being off." She reports having been on control in the past to help regulate hormones, but she is off that now. She didn't say why. She has been in tx at [facility] IOP / DBT program since her last discharge from [facility] in January of this year. She said she had almost finished the program, but she is not looking to go back. She reports that she doesn't trust the prescriber there, she finds it difficult to be with other people who are having self harm behaviors, and it is eating up her gas to go to [place] 4 days a week. Her preference would be to increase visits with her therapist Josefa Araiza to 2 days a week and return to see Clarisse Hannah APRN in [facility]. Her goal of this hospitalization is to "get her meds right." She feels that she may need an addition of an Ativan to help when she is experiencing panic symptoms. She reports having some SI today. Her overall presentation was more stable though, than I have seen in the past which I reflected back to her. She was less tearful and hysterical. She signed a release for Josefa Araiza but didn't see a reason to sign a release for anyone else. She is trying to manage her emotions about her Mom's illness and just focus on today. She reports feeling anxious about the idea of her Mom passing in the future and not having anyone. Encouraged her to be grateful for the moments she has today and not get ahead of herself.
[2018-03-09 12:06] VITALS: BP 145/77
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
[2018-03-09 15:44] VITALS: BP 123/72
--- NOTE | 2018-03-09 15:53 | History & Physical ---
General Information and HPI MD Statement: I have seen and personally examined HUYEN PÉREZ and documented this H&P. The patient is a 47 year old F who presented with a patient stated chief complaint of severe anxiety/panic attack. Source of Information: patient, old records Exam Limitations: no limitations History of Present Illness: The patient is a 47 yo female with h/o HTN, depression and anxiety with h/o multiple psych admit in the past (most recent last month) who presented with c/o severe anxiety/panic attack. At the time of my exam on the floor the patient was fairly calm and only c/o some lower pelvic pain. She stated that she is shar- menopausal and stopped OCP's a couple of weeks ago and is yet to have a period. 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 Singleton). Allergies/Medications Allergies: Coded Allergies: amoxicillin (Mild, STOMACH ACHES 01/18/18) clavulanic acid (Mild, STOMACH ACHES 01/18/18) latex (Mild, RASH 01/18/18) procaine (Intermediate, HYPERTENSION 01/06/16) benztropine (MYDRIASIS FOR 1 MONTH 01/06/16) Home Med list Ascorbic Acid (Vitamin C) 500 MG CAPSULE 1 CAP PO DAILY SUPPLEMENT (Reported) Aspirin (Ecotrin*) 81 MG TABLET. 1 TAB PO DAILY HEART/BLOOD (Reported) Buspirone HCl 15 MG TABLET 15 MG PO 0800,1700 anxiety Cholecalciferol (Vitamin D3) 1,000 UNIT TABLET 1 TAB PO DAILY SUPPLEMENT ( Reported) Clonazepam (Klonopin) 0.5 MG TABLET 0.5 MG PO Q6-PRN PRN ANXIETY maximum of 3 tabs per day Ferrous Sulfate 325 MG (65 MG IRON) TABLET 1 TAB PO Q3D SUPPLEMENT (Reported) Lactobac #2-S. Therm-Bifido #1 (Vsl#3 Capsule) 112.5 BILLION CELL CAPSULE 1 CAP PO DAILY PROBIOTIC (Reported) Mirtazapine (Remeron) 15 MG TABLET 15 MG PO AT BEDTIME depression/anxiety Multivitamin (Multiple Vitamins) 1 EACH TABLET 1 TAB PO DAILY SUPPLEMENT ( Reported) Norethindrone-E.estradiol-Iron (Microgestin Fe 1-20 Tablet) 1 MG-20 MCG (21)/75 MG (7) TABLET 1 TAB PO DAILY CONTROL (Reported) Omeprazole 40 MG CAPSULE. 1 CAP PO DAILY GI (Reported) Paroxetine HCl (Paxil) 40 MG TABLET 1 TAB PO QHS depression and anxiety Quetiapine Fumarate (Seroquel) 50 MG TABLET 50 MG PO AT BEDTIME anxiety/ insomnia Take 1 tab po at bedtime. Compliance With Home Meds: GOOD Past History Travel History Traveled to [place] past 21 day No Medical History Neurological: NONE EENT: allergies Cardiovascular: hyperlipidemia Respiratory: NONE Gastrointestinal: 2 polyps removed. 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 admission but H&H normal in [facility]. History of MRSA: No History of VRE: No History of CDIFF: No Isolation History: Standard Surgical History Surgical History: WISDOM TEETH EXTRACTIONS Past Family/Social History Family History Relations & Conditions if any MOTHER (HISTORY OF LUNG CA, COPD, DEMENTIA). FATHER (H/O DEPRESSION, COLON CANCER DIET 82). . BROTHER (H/O ALCOHOL ABUSE). . BROTHER (ALCOHOL ABUSE). SISTER MOTHER GRANDMOTHER (DIABETES). . GRANDPARENTS (CAD, DM). . Relation not specified for: FH: cancer Psychosocial History Who Do You Live With? parent Services at Home: None Primary Language: Kyrgyz Smoking Status: Never Smoked ETOH Use: denies use Illicit Drug Use: denies illicit drug use Functional Ability ADLs Independent: dressing, eating, toileting, bathing. Ambulation: independent IADLs Independent: shopping, housework, finances, food prep, telephone, transportation , medication admin. 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 EENTM: Denies: no symptoms. Cardiovascular: Denies: no symptoms. Respiratory: Denies: no symptoms. GI: Denies: no symptoms. Genitourinary: Reports: pain (PELVIC PAIN- NO PERIOD). Denies: no symptoms. Musculoskeletal: Denies: no symptoms. Skin: Denies: no symptoms. Neurological/Psychological: Reports: anxiety, depressed, emotional problems. Hematologic/Endocrine: Denies: no symptoms. Immunologic/Allergic: Denies: no symptoms. Date of Last Mammogram: 03/19/18 Exam & Diagnostic Data Last 24 Hrs of Vital Signs/I&O Vital Signs Date Time Temp Pulse Resp B/P B/P Pulse O2 O2 Flow FiO2 Mean Ox Delivery Rate 03/09 1941 98.8 78 117/76 03/09 1544 97 123/72 03/09 1206 84 145/77 03/09 0744 98.0 91 122/77 Intake & Output 03/09 1600 03/09 0800 03/09 0000 Intake Total Output Total Balance Patient 131 lb Weight Physical Exam General Appearance Alert, Oriented X3, Cooperative, No Acute Distress Skin No Rashes, No Breakdown, No Significant Lesion HEENT Atraumatic, PERRLA, EOMI, Mucous Membr. moist/pink Neck Supple, No JVD, No thryomegaly, +2 Carotid Pulse wo Bruit, No LAD Cardiovascular Regular Rate, Normal S1, Normal S2, No Murmurs Lungs Clear to Auscultation, Normal Air Movement Abdomen Normal Bowel Sounds, Soft, No Tenderness, No Hepatospenomegaly, No Masses Neurological Exam Findings: Normal Gait, Normal Speech, Strength at 5/5 X4 Ext, Normal Tone, Sensation Intact, Cranial Nerves 3-12 NL, Reflexes 2+ Cranial Nerves II through XII: INTACT Extremities No Clubbing, No Cyanosis, No Edema, Normal Pulses, No Tenderness/ Swelling Vascular Normal Pulses, Pulses Symmetrical Last 24 Hrs of Labs/Mack: Laboratory Tests 03/08/180: Hemoglobin A1c 5.1, Iron 66, TIBC 332, Triglycerides 131, Cholesterol 198, LDL Cholesterol, Calc 122, HDL Cholesterol 50, Cholesterol/HDL Ratio 4, TSH &T3 & Free T4 Intrp 1.310, Total Beta HCG NEGATIVE 03/08/180: Vit D 1,25-Dihyd Total Pending, 1,25 Dihydroxy Vit D2 Pending, 1,25 Dihydroxy Vit D3 Pending, RPR Titer/FTA NONREACTIVE Assessment/Plan Assessment: Impression/Plan: #Anxiety/Panic Attacks- have been worsening. S/P recent psych admit. Plan: Admit to [facility]/psychiatry. #S/P Colonic Polypectomy- patient states will need 3 year follow-up colonoscopy. Plan: Follow-up as OP. #Pelvic Pain- patient states she his shar-menopausal and she discontinued her OCP's 2 weeks ago. Has not had period as of yet. Patient requesting hormone levels. Plan: Will check LH/FSH/Estradiol levels. Tylenol for pain and will follow. #H/O Hyperlipidemia- currently off statin and last chol OK last month. Plan: OP follow-up. As Ranked By This Provider Problem List: 1. Hyperlipidemia 2. Anxiety 3. Depression 4. Vomiting Miscellaneous Miscellaneous Documentation Attending Case Discussed With: Carlyn KINNEY,Derick Primary Care Physician: Eve Tuttle DO Patient sees these Specialists none Level of Patient Care: MILAN Alberts Consults Needed: Consulting Physician: none Attending MD Review Statement Attending Statement Attending MD Statement: examined this patient, discussed with family, reviewed EMR data (avail), discussed with nursing, discussed with case mgmt, amended to note Attending Assessment/Plan: As above.
--- NOTE | 2018-03-09 17:00 | SOCIAL WORKER TX PLAN PSYCH ---
Treatment Plan - Please Document: - Evidence that there is ongoing collaboration between - the patient and the interdisciplinary team, - including the patient's active participation and - responsibility for engaging in the treatment regimen, - and that the treatment plan is individualized and - relevant to the patient's conditions. - Treatment plan should reflect documentation indicating - that all active therapeutic efforts are included. Strengths/Capabilities: pt is seeking assistance to manage her anxiety pt is working with [employer] for what sounds like Intensive Case Management Services or a Health Care Coordinator Physical Limitations (Interventions): none Patient Identified Trmt Goals: "I need to get my meds right" Discharge Plan: outpatient therapy, return home with Mom. Problem/Goals #1 Problem #1: suicidal ideation Goal (Short Term): Patient will attend 75% of groups on unit. Goal (Customer Quality Specialist): patient's suicidal thoughts will be eliminated in order to return home. Interventions: Patient will be offered medication management with the psychiatrist. Patient will be offered groups on symptom management, relaxation skills, art therapy, accupuncture, goals group, focus group. cut in worker will help patient to identify strengths and supports/ review what makes life worth living. Modalities: group, individual Problem/Goals #2 Problem #2: anxiety Goal (Short Term): patient will have a reduction in anxiety by utilizing 2 grounding techniques daily Goal (Customer Quality Specialist): patient will have a reduction in anxiety rating it at a 5 or below on a scale from 0-10 (10 being severe). Interventions: patient will be offered groups on relaxation, symptom management, yoga, accupuncture. cut in worker will help patient identify grounding techniques that are effective and help encourage throughout the day. Modalities: group, individual DSM5/PS Stressors/Medical Prob Diagnosis' (DSM 5, Stressors, Medical): F33.2 Major depressive disorder, recurrent severe with anxious distress --hx suicide attempts,F34.8 Disruptive mood dysregulation disorder,F43.10 PTSD, F60.3 Borderline Personality Disorder, r/o PMDD; Hypercholesterolemia, intermittent back pain, hx anemia; Unemployment, financial, grief/loss, and family stressors Current GAF: 24 Treatment Team - Responsibilities of members of the treatment team include: - Medication Management- MD or MANAGER ORANGE - Medication Administration and Monitoring- Nurse - Group Therapy- Occupational Therapist - 1:1 Therapy,Disch Planning,family involvement-Cigarette Vendor
[2018-03-09 19:41] VITALS: BP 117/76
[2018-03-10 07:34] VITALS: BP 111/65
[2018-03-10 12:05] VITALS: BP 132/73
[2018-03-10 15:48] VITALS: BP 129/70
--- NOTE | 2018-03-10 16:17 | SOCIAL WORKER PROG NOTE PSYCH ---
See Addendum Social Work Progress Note Progress Note Melissa was an active participant in groups today. She talked with me about changing her doctor to Dr. Hanks. She is happy with the change. She talked about how she is upset over having been labled "argumentative" and how she has a difficult time with people in "authority" and this was upsetting to her. She talked alot about her struggle with her anxiety and how she just doesn't know what to do anymore. She feels like she is working really hard and working hard on various coping skills. She is wondering if her medications are just causing her to feel excitable. She feels stuck with not being able to tolerate a Paxil reduction/ discontinuation. Due to her hx of severe withdrawal. She started to cry over not knowing if she will ever get her meds right. Just empathized with how hard it is not to know and the frustration she has dealt with. Talked about how she just needs to be able to tolerate the "not knowing" and the [place]. She said she is working on being in the present. She doesn't want to be here long. Expressed her desire again to go back to seeing Clarisse Hannah APRN at [facility].
--- NOTE | 2018-03-10 16:21 | SOCIAL WORKER PROG NOTE PSYCH ---
Social Work Progress Note Progress Note SW submitted authorization for continued inpatient hospitalization. Auth is pending [id number]. [id number]
--- NOTE | 2018-03-10 16:34 | CP SOUTH PROGRESS NOTE PSYCH ---
Psych (Inpt) Progress Note Progress Note Include the following elements, when applicable: Involvement in the active treatment of the patient with behavioral observations of the patient and the patient's response to the treatment. Review of the ongoing treatment process in the context of the treatment plan. Indication of how multi-disciplinary staff members are carrying out the treatment plan. Plans for future interventions and recommendations for revision of the treatment plan. Liaison with other physicians/providers. Progress Note: Dr. Derick Alcocer's note reviewed. Case and treatment plan discussed in team meeting. Staff reports that the patient indicated she had suicidal thoughts yesterday but not this morning. She has been attending groups. Involved. Had a good day. Uses coloring to cope. Patient seen at 12:44 PM. She was on the phone prior to meeting with me in office. The patient is a 47-year-old single white woman with apparent history of panic attacks. Dr. Alcocer listed diagnoses as major depression, recurrent, severe with anxious distress, disruptive mood dysregulation disorder and borderline personality disorder. Current medication list reviewed. Patient reports she is here basically because of a panic attack. Reports that for the last 3 years, she has been struggling going through [place]-menopause. Anxiety increased. When she feels panicky for several days, she can become suicidal because she wants the panic to stop. She tried an oral contraceptive pill for 3 months but it did not help with moods. She experiences relief when she gets her period. Last menstrual period was about 3 months ago. Reports numerous stressors including of father on 10/20/14 from colon cancer. Mother got lung cancer right after that and mother has dementia. Past psychiatric history: Sees Josefa Araiza LCSW for therapy. Sees Clarisse Hannah APRN for medication management. Patient has been attending the DBT program at [facility] but she does not want to continue with that program as she states she has a lot of the skills. Hx multiple inpatient admissions, including to [facility] and also to [facility] once. History of 1 suicide attempt by overdose 2.5 years ago when tapering down on Paxil dose. Substance abuse history: Denies use of tobacco, alcohol or drugs. Medications prior to admission: Paxil 40 mg nightly BuSpar 15 mg twice daily Seroquel 50 mg nightly Remeron 15 mg nightly Klonopin 0.5 mg 3 times daily as needed Omeprazole 40 mg daily Vitamin D, iron, vitamin C, mulivitamin Probiotic Aspirin 81 mg daily Allergies: Amoxicillin, clavulinic acid, latex, procaine, benztropine. Past medical history: History of hypercholesterolemia but now off statin. Patient has a history of wisdom teeth extractions. Family psychiatric and substance abuse history: Sister had PTSD and depression and from alcohol in 2001. Surviving sister may be alcoholic. No suicides in the family. Social history: Single. Has no children. Lives with mother in [place]. Patient has one surviving sister. Has no income. Disability application is pending. No history of arrests. Mental status examination: The patient is an ambulatory white woman dressed in sweatshirt and in blue scrub pants, sitting in a chair in no acute distress. She is calm, polite and cooperative. There is no psychomotor agitation or retardation. Speech is normal in volume, rate and tone. Affect is calm and blunted. Reports mood is a little scared to be here. Rates sad mood 3/10 and anxiety 4/10. Denies feeling hopeless, helpless, worthless or guilty. Denies active and passive suicidal ideation. Denies homicidal ideation. Denies auditory and visual hallucinations. Denies paranoid ideation and magical rubi. Insight and judgment are currently good. There is no apparent thought disorder or delusions. Patient is oriented 3 except she gives the date as March 10 or 2017. Cognition is grossly intact. Estimate of intellectual functioning is average. Reports she sleeps well with her medications but feels groggy for hours in the morning after waking up. Describes appetite as eating well, stating that she eats very healthy. Energy is low. Patient does not believe she has borderline personality disorder. Patient was advised to avoid caffeine intake, even decaf coffee. IMPRESSION: Panic disorder. Monitor response to current regimen, including recently increased Paxil dose, now at 50 mg nightly. Anticipate likely discharge early next week, Tuesday or Tuesday, to home with follow-up with Josefa Araiza LCSW and with Clarisse Hannah APRN.
[2018-03-10 19:45] VITALS: BP 126/67
[2018-03-11 07:42] VITALS: BP 110/63
[2018-03-11 12:24] VITALS: BP 112/71
--- NOTE | 2018-03-11 14:39 | CP SOUTH PROGRESS NOTE PSYCH ---
Psych (Inpt) Progress Note Progress Note Include the following elements, when applicable: Involvement in the active treatment of the patient with behavioral observations of the patient and the patient's response to the treatment. Review of the ongoing treatment process in the context of the treatment plan. Indication of how multi-disciplinary staff members are carrying out the treatment plan. Plans for future interventions and recommendations for revision of the treatment plan. Liaison with other physicians/providers. Progress Note: Case discussed with nursing staff. Nurse reports that patient was in a total panic this morning, upset with Paxil dose increase, stating that it made her feel aggressive. Reported suicidal ideation to overdose. Feels safe here. She reported an upper chest rash. Patient seen at 10:01 AM. She was sitting on her bed coloring and singing prior to getting up to meet with me in office. Reports she is using her tools to try to calm herself down. Reports she felt weepy, her chest was flushed and her right elbow was swollen. [place] aggressive. Awoke feeling suicidal, wondering if it was a "panic backlash." Feels more anxious after Paxil 50 mg. Wants to reduce dose to 40 mg and I have made this change. Affect ranges from crying to labile and intense. Reports she was on Depakote 25 years ago and it did not work. Patient's estradiol is low at 19.9 and LH is low at 0.3. She has been off of oral contraceptive pill for 1.5-2 weeks. Reports mood is very depressed at 10/10 and anxiety is 9/10. Feels hopeless. States she does not feel entirely helpless because she is advocating for herself. Denies feeling worthless. She feels guilty for being a burden to her family. Reports suicidal ideation. Gives a safety promise for here. Denies homicidal ideation. Denies auditory and visual hallucinations and paranoid ideation. Reports that she slept well with medications. Describes appetite as normal/good. Reports energy is low but she is anxious. She feels aggressive and agitated. IMPRESSION: Slow progress. Continue present treatment plan. We will now reduce Paxil dose to 40 mg nightly and add Neurontin 100 mg p.o. every 4 hours prn. I requested an endocrinology consult regarding estradiol and LH results.
[2018-03-11 16:00] VITALS: BP 131/77
[2018-03-11 19:50] VITALS: BP 120/75
[2018-03-12 01:57] VITALS: BP 124/82
[2018-03-12 08:04] VITALS: BP 108/77
--- NOTE | 2018-03-12 11:49 | Cons- Endocrinology ---
General Information and HPI Consulting Request Date of Consult: 03/12/18 Requested By: Dr Hanks Reason for Consult: Mood swings related to menstrual cycle Source of Information: patient, old records Exam Limitations: no limitations History of Present Illness: This 47-year-old woman has a known history of anxiety and depression. She has had multiple admissions to the psychiatric unit. The patient states that her symptoms of anxiety and depression are much worse over the past several months. She feels they are definitely occurring in a cyclical fashion and that she becomes more emotional and anxious several days before her menses. She also notes heart palpitations. She states she feels this is PMS and is concerned about how it can be treated. The patient did see her manager ob and was placed on control pills for about 2-1/2 months. She has been off control pills for 2-3 weeks. The control pills did not seem to help her symptoms. She states that she got an abbreviated menstrual periods the first month she was on control pills then and even shorter menstrual period. By the third month she was not having her menses at all. She was concerned because she felt she needed a menstrual period in order to relieve her symptoms. The patient lives with her mother and has suffered from anxiety and depression to a severe degree for many years. As an outpatient she has been treated with Paxil, BuSpar, Klonopin, Seroquel, and Remeron. She does sleep at night but does not feel refreshed when she wakes up. The patient describes her panic attacks as being short of breath and not being able to think clearly. There is no history of thyroid disease in her family. Her mother has COPD and has had a lung resection for lung cancer. Father of colon cancer. The patient had a recent colonoscopy with just some benign polyps removed. She has 1 sister who has some hypertension and another sister who . Her other sister did have a problem with alcoholism. Allergies/Medications Allergies: Coded Allergies: amoxicillin (Mild, STOMACH ACHES 01/18/18) clavulanic acid (Mild, STOMACH ACHES 01/18/18) latex (Mild, RASH 01/18/18) procaine (Intermediate, HYPERTENSION 01/06/16) benztropine (MYDRIASIS FOR 1 MONTH 01/06/16) Home Med List: Ascorbic Acid (Vitamin C) 500 MG CAPSULE 1 CAP PO DAILY SUPPLEMENT (Reported) Aspirin (Ecotrin*) 81 MG TABLET.DR 1 TAB PO DAILY HEART/BLOOD (Reported) Buspirone HCl 15 MG TABLET 15 MG PO 0800,1700 anxiety Cholecalciferol (Vitamin D3) 1,000 UNIT TABLET 1 TAB PO DAILY SUPPLEMENT ( Reported) Clonazepam (Klonopin) 0.5 MG TABLET 0.5 MG PO Q6-PRN PRN ANXIETY maximum of 3 tabs per day Ferrous Sulfate 325 MG (65 MG IRON) TABLET 1 TAB PO Q3D SUPPLEMENT (Reported) Gabapentin 100 MG CAPSULE 1 CAP PO Q4P PRN ANXIETY/AGITATION/INSOMNIA Ibuprofen 600 MG TABLET 1 TAB PO Q6P PRN pain Lactobac #2-S. Therm-Bifido #1 (Vsl#3 Capsule) 112.5 BILLION CELL CAPSULE 1 CAP PO DAILY PROBIOTIC (Reported) Mirtazapine (Remeron) 15 MG TABLET 15 MG PO AT BEDTIME depression/anxiety Multivitamin (Multiple Vitamins) 1 EACH TABLET 1 TAB PO DAILY SUPPLEMENT ( Reported) Omeprazole 40 MG CAPSULE.DR 1 CAP PO DAILY GI (Reported) Paroxetine HCl (Paxil) 40 MG TABLET 1 TAB PO QHS depression and anxiety Quetiapine Fumarate (Seroquel) 50 MG TABLET 50 MG PO AT BEDTIME anxiety/ insomnia Take 1 tab po at bedtime. Review of Systems Review of Systems Constitutional: Denies: chills, fever. Cardiovascular: Denies: chest pain. Respiratory: Reports: short of breath. GI: Denies: abdominal pain. Skin: Reports: no symptoms. Past History Travel History Traveled to [place] past 21 day No Medical History Neurological: NONE EENT: allergies Cardiovascular: hyperlipidemia Respiratory: NONE Gastrointestinal: 2 polyps removed. 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 Surgical History Surgical History: WISDOM TEETH EXTRACTIONS Family History Relations & Conditions If Any: MOTHER (HISTORY OF LUNG CA, COPD, DEMENTIA). FATHER (H/O DEPRESSION, COLON CANCER DIET 82). . BROTHER (H/O ALCOHOL ABUSE). . BROTHER (ALCOHOL ABUSE). SISTER MOTHER GRANDMOTHER (DIABETES). . GRANDPARENTS (CAD, DM). . Relation not specified for: FH: cancer Psychosocial History Who Do You Live With? parent Services at Home: None Primary Language: Lithuanian Smoking Status: Never Smoked ETOH Use: denies use Illicit Drug Use: denies illicit drug use Functional Ability ADLs Independent: dressing, eating, toileting, bathing. Ambulation: independent IADLs Independent: shopping, housework, finances, food prep, telephone, transportation , medication admin. Employment History Employment: Unemployed Profession/Employer: [employer] Exam & Diagnostic Data Last 24 Hrs of Vital Signs/I&O Vital Signs Date Time Temp Pulse Resp B/P B/P Pulse O2 O2 Flow FiO2 Mean Ox Delivery Rate 05/06 0804 98.1 90 108/77 05/06 0157 88 20 124/82 05/05 1950 97.7 74 120/75 05/05 1600 85 131/77 05/05 1224 72 112/71 Vital Signs Date Time Temp Pulse Resp B/P B/P Pulse O2 O2 Flow FiO2 Mean Ox Delivery Rate 05/06 0804 98.1 90 108/77 05/06 0157 88 20 124/82 05/05 1950 97.7 74 120/75 05/05 1600 85 131/77 05/05 1224 72 112/71 Physical Exam General Appearance: alert, awake, comfortable Head: normal appearance Eyes: Bilateral: normal appearance. Neck: thyromegaly Respiratory: normal breath sounds Cardiovascular: regular rate/rhythm Gastrointestinal: normal bowel sounds, soft Extremities: normal inspection Assessment/Plan Assessment/Plan This 47-year-old woman would seem to be having symptoms that she relates to her menstrual cycles. She is concerned that several days before she gets her menses she feels her emotional symptoms are worse. She feels that changes in her hormones each month right before her menses are bringing on more panic attacks.. Several days before her menses each month is the time when her panic attacks are the worst. Her menstrual cycles which have been regular up to this point. She was not helped by taking control pills in fact this may have made her symptoms worse according to what she is describing. The symptoms are extremely difficult to treat. Her estradiol level is 19.9. This could be low depending where she is in her menstrual cycle. Previously taking control pills could also influence the estradiol level as could the beginning of menopause. However we will reevaluate Also we will reevaluate her thyroid which seems slightly enlarged on examination. Consult Acknowledgment - Thank you for your consult request.
[2018-03-12 12:28] VITALS: BP 127/76
--- NOTE | 2018-03-12 14:29 | ULTRASOUND REPORT ---
EXAMINATION: US THYROID CLINICAL INFORMATION: Thyroid enlargement. Presumptive diagnosis of diffuse goiter. COMPARISON: None TECHNIQUE: Linear transducer browning-scale and color Doppler examination with attention to the region of the thyroid. FINDINGS: SIZE: Measurements of the thyroid lobes and nodules are given in sagittal, anteroposterior and transverse dimensions respectively. Right Thyroid Lobe: 4.9 x 1.3 x 1.7 cm, volume 5.7 mL. Left Thyroid Lobe: 4.4 x 1.1 x 1.7 cm, volume 4.3 mL. Isthmus: 0.3 cm in maximum AP dimension. PARENCHYMA: The gland echotexture is homogeneous. Thyroid vascularity is normal. RIGHT THYROID LOBE: There is 1 nodule seen. 1: Location: Mid gland. Size: 0.3 x 0.2 x 0.2 cm. Nodule characteristics: Hypoechoic. Smooth margins. No calcification. Positive vascular flow. ISTHMUS: No nodules. LEFT THYROID LOBE: No nodules. NODES: No lymphadenopathy is seen in the tissue surrounding the thyroid gland. IMPRESSION: Thyroid gland is at the upper limits of normal in size. Solitary benign appearing sub-0.5 cm sized nodule is seen in the mid right lobe. No suspicious thyroid nodule or mass.
--- NOTE | 2018-03-12 15:17 | CP SOUTH PROGRESS NOTE PSYCH ---
Psych (Inpt) Progress Note Progress Note Include the following elements, when applicable: Involvement in the active treatment of the patient with behavioral observations of the patient and the patient's response to the treatment. Review of the ongoing treatment process in the context of the treatment plan. Indication of how multi-disciplinary staff members are carrying out the treatment plan. Plans for future interventions and recommendations for revision of the treatment plan. Liaison with other physicians/providers. Progress Note: Case discussed with nurse. Nurse reports that the patient reported she fell in the bathroom last night but there was no injury. Endocrine consult was pending. Patient has somatic complaints. Patient seen at 10:15 AM. Patient feels better than she did yesterday. Denies suicidal ideation. Reports she is not ready to leave on Tuesday or Tuesday. States she had a severe headache yesterday and this morning. She likes Neurontin. Reports she is not needing to use Klonopin prn lately. Affect is intense but less upset. Tolerating medications but has some dry mouth and foggy head which she attributes to Neurontin. She would like Motrin available more frequently so I changed the order to 400 mg every 4 hours as needed. Reports mood is about 5/10 with 10 being worst. Rates sad mood like 4/10 and anxiety 3/ 10 with 10 being worst. Denies feeling hopeless, helpless or worthless. Does feel guilty. Denies suicidal ideation, stating "not today." Denies homicidal ideation. Denies auditory and visual hallucinations and paranoid ideation. Reports she slept fine but had an awakening at 2 AM. She states she had low blood pressure then and fell on her buttocks. Reports appetite is very good. Energy is not so good. Patient is asking about discontinuation of BuSpar. I suggested this be done slowly on an outpatient basis. IMPRESSION: Slow progress. Continue present treatment plan. Anticipate likely discharge on Tuesday. I have asked the patient to prepare for a Tuesday discharge. Dr. Vilchis's consult appreciated.
[2018-03-12 16:01] VITALS: BP 126/75
[2018-03-12 19:49] VITALS: BP 111/86
[2018-03-13 07:44] VITALS: BP 121/70
--- NOTE | 2018-03-13 08:39 | SOCIAL WORKER PROG NOTE PSYCH ---
Social Work Progress Note Progress Note Called [facility] to schedule Melissa's follow up appts. Intake scheduled 03/16 2pm with Aye Dexter (clinician). First available med eval with Clarisse Hannah APRN isn 't until 04/17 8am. Checking with Clarisse to see if she can be seen sooner. Called Josefa Araiza (therapist). I let her know that Melissa was not in favor of returning to [facility]. She is willing to increase visits with her to 2x's a week. She will be seeing her this Tuesday at 11am and will work on a schedule at that time. Met with Melissa and shared the above information. She was a little nervous about having to see a new doctor. She gets very nervous about "people in authority." She said she was having a difficult day Tuesday with SI and depression. Feels better since then. No SI today. Wants to have a few days without SI before returning home. Complaining of headaches. Thinks it may be due to eating some yogurt with sugar. She normally stays away from sugar. Said she is getting somewhat bored here. Continues to wish for days without panic. I keep encouraging her to focus on today and be in the present. She tries, but finds it hard when she thinks of losing her Mom. Talked about her strengths and goals. 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 Encouraged her to get back to doing some of these things. She is fearful of making a commitment at this time. Would like to eventually volunteer at [place] [place] [employer]. She was tearful during some of the discussion. Asked if she could cry. She felt she just needed a release. Encouraged her to do that so she is not keeping it in. Also encouraged others ways to release thoughts/ feelings. Journaling, talking to a mirror ect..
[2018-03-13 12:18] VITALS: BP 118/66
--- NOTE | 2018-03-13 15:46 | CP SOUTH PROGRESS NOTE PSYCH ---
Psych (Inpt) Progress Note Progress Note Include the following elements, when applicable: Involvement in the active treatment of the patient with behavioral observations of the patient and the patient's response to the treatment. Review of the ongoing treatment process in the context of the treatment plan. Indication of how multi-disciplinary staff members are carrying out the treatment plan. Plans for future interventions and recommendations for revision of the treatment plan. Liaison with other physicians/providers. Progress Note: Case and treatment plan discussed in team meeting. Staff reports that the patient is denying suicidal ideation. Staff reports that the patient seems okay. Patient seen at 2:05 PM. Reports she has had a bad headache for days. States is not normal for her to have a headache. Feels a little nauseated. Seems anxious. Reports she is still a little "weirded-out" from Neurontin but anxiety is better. Reports mood is not the best at 6/10 with 10 being worst. Rates sad mood 5/10 and anxiety about 5/10. Denies feeling hopeless, helpless, worthless or guilty. Denies suicidal and homicidal ideation. Denies auditory and visual hallucinations and paranoid ideation. States she slept well but has begun to grind her teeth since starting Neurontin. Reports she eats well/healthy. Reports energy is very low. Appears awake and alert. IMPRESSION: Slow progress. Continue present treatment plan. We will now change ibuprofen to 600 mg every 6 hours as needed. We will continue Paxil, Remeron, Seroquel, BuSpar, Klonopin and Neurontin as written. Anticipate likely discharge on Tuesday.
[2018-03-13 15:48] VITALS: BP 107/76
[2018-03-13 20:15] VITALS: BP 121/69
[2018-03-14 07:38] VITALS: BP 132/80
[2018-03-14 12:24] VITALS: BP 126/68
--- NOTE | 2018-03-14 13:59 | SOCIAL WORKER PROG NOTE PSYCH ---
Social Work Progress Note Progress Note HUYEN PÉREZ [id number] 1970 HUYEN PÉREZ [id number] Pended Authorization # Client Authorization # Type of Request [id number] CONCURRENT Date of Admission/ Start of Services Requested From Submission Date 03/08/2018 03/14/2018 03/14/2018
--- NOTE | 2018-03-14 14:11 | SOCIAL WORKER PROG NOTE PSYCH ---
Social Work Progress Note Progress Note Melissa reported having some sadness and depression today. Remains anxious. Fearful that the Gabapentin is causing more anxiety. Talked about transitioning to IOP for a month before transitioning back to Clarisse Hannah APRN in outpatient so that she can continue to have her meds adjusted. Also talked about how returning home tomorrow with IOP support would help ease some of the other things that have been agitating her about being on the unit here. She ultimately was agreeable to that plan. Talked about setting up a 1:15pm intake appt. She will see if her Sister is available to pick her up. Melissa was tearful during the meeting talking about how she feels guilty returning home knowing that she will impact her Mother. Talked about how it's difficult to cry infront of Mom because her illness than effects her Mother's functioning and makes her dementia symptoms worse. She hates the fact that she is impacting her family. Discussed Melissa's referral to [facility] with Florida Galvan (IOP Coordinator). She will accept Melissa in the afternoon mental health track. Intake is 1:15pm tomorrow.
--- NOTE | 2018-03-14 15:15 | CP SOUTH PROGRESS NOTE PSYCH ---
Psych (Inpt) Progress Note Progress Note Include the following elements, when applicable: Involvement in the active treatment of the patient with behavioral observations of the patient and the patient's response to the treatment. Review of the ongoing treatment process in the context of the treatment plan. Indication of how multi-disciplinary staff members are carrying out the treatment plan. Plans for future interventions and recommendations for revision of the treatment plan. Liaison with other physicians/providers. Progress Note: Case and treatment plan discussed in team meeting. Staff reports that the patient is somatic. Stated she almost felt suicidal from a migraine. Described as negative. Discharge is planned for tomorrow. Patient seen at 11:34 AM with medical student. Patient was resting in bed but got up and met with us in office. She states "well, had a nice little drug reaction yesterday." Reports she determined she had palpitations from taking Neurontin near the dosing time for other medications. Last had palpitations last night. Reports she is nervous about discharge for tomorrow. She finds meditation helps with anxiety. Rates anxiety 2/10 now and sad mood 5/10. Had some suicidal thoughts earlier this morning without plan but denies SI now. States she would never act on them. Denies homicidal ideation. Denies auditory and visual hallucinations and paranoid ideation. Willing to go to [facility]. Reports sleep was not so good. She went to sleep around 12 or 1 AM and she was up at 6 AM. Appetite is good. Reports energy might be a little bit higher today because headache has reduced. IMPRESSION: Slow progress. Continue present treatment plan. Anticipate discharge tomorrow.
[2018-03-14 15:43] VITALS: BP 112/54
[2018-03-14 20:06] VITALS: BP 126/75
[2018-03-15 07:36] VITALS: BP 118/74
[2018-03-15] MEDS ORDERED: IBUPROFEN600 M1 PO (11:39)
[2018-03-15] MEDS ORDERED: GABAPENTIN100 M2 PO (11:39)
--- NOTE | 2018-03-15 11:48 | Patient Discharge Instructions ---
Psych Discharge Inst General Discharge Information Reason for Admission: Called 911 due to having a panic attack and stated my meds arent working. Reported a history of worsening symptoms during menstruation. [place] suicidal from panic. Psy Discharge Primary Diag+ Major depression, rec. severe w/anxious distress Psy Discharge Secondary Diag+ Hx hyperlipidemia Hx vitamin D deficiency Hx enamia [place]-menopausal Thyroid nodule Summary Tests/Major Procedures Lab 1,25 Dihydroxy Vit D2 <8 pg/mL 03/08/18 2350 1,25 Dihydroxy Vit D3 46 pg/mL 03/08/18 2350 ALT 34 U/L 01/18/18 1324 AST 19 U/L 01/18/18 1324 Albumin 3.4 g/dL L 01/18/18 1324 BUN 17 mg/dL 03/08/18 1639 Calcium 8.5 mg/dL 03/08/18 1639 Carbon Dioxide 28 mmol/L 03/08/18 1639 Chloride 103 mmol/L 03/08/18 1639 Cholesterol 198 MG/DL 03/08/18 2350 Cholesterol/HDL Ratio 4 % 03/08/18 2350 Creatinine 0.8 mg/dL 03/08/18 1639 Estimated GFR > 60 ml/min 03/08/18 1639 Estradiol (E2) Level 19.0 pg/mL 03/13/18 0649 Free T4 0.95 ng/dL 03/13/18 0649 Glucose 80 mg/dL 03/08/18 1639 HDL Cholesterol 50 mg/dL 03/08/18 2350 Hemoglobin A1c 5.1 % 03/08/18 2350 Iron 66 ug/dL 03/08/18 2350 LDL Cholesterol, Calc 122 mg/dL 03/08/18 2350 Potassium 4.1 mmol/L 03/08/18 1639 Prolactin 14.9 ng/mL 03/13/18 0649 Sodium 139 mmol/L 03/08/18 1639 TIBC 332 ug/dL 03/08/18 2350 TSH 1.170 uIU/mL 03/13/18 0649 Total Beta HCG NEGATIVE 03/08/18 2350 Triglycerides 131 mg/dL 03/08/18 2350 Vit D 1,25-Dihyd Total 46 pg/mL 03/08/18 2350 Hct 37.8 % 03/08/18 1639 Hgb 12.6 G/DL 03/08/18 1639 MCH 31.9 PG H 03/08/18 1639 Plt Count 343 /CUMM 03/08/18 1639 RBC 3.95 /CUMM L 03/08/18 1639 WBC 8.7 /CUMM 03/08/18 1639 Thyroglobulin Antibody < 15 U/mL 03/13/18 0649 Thyroid Peroxidase Ab 31 U/mL 03/13/18 0649 RPR Titer/FTA NONREACTIVE 03/08/18 2350 Serum Alcohol < 10.0 MG/DL 03/08/18 1639 SERVICE DATE: 03/12/18 EXAM TYPE: US - US-SOFT TISSUES OF HEAD & NECK EXAMINATION: US THYROID CLINICAL INFORMATION: Thyroid enlargement. Presumptive diagnosis of diffuse goiter. COMPARISON: None TECHNIQUE: Linear transducer browning-scale and color Doppler examination with attention to the region of the thyroid. FINDINGS: SIZE: Measurements of the thyroid lobes and nodules are given in sagittal, anteroposterior and transverse dimensions respectively. Right Thyroid Lobe: 4.9 x 1.3 x 1.7 cm, volume 5.7 mL. Left Thyroid Lobe: 4.4 x 1.1 x 1.7 cm, volume 4.3 mL. Isthmus: 0.3 cm in maximum AP dimension. PARENCHYMA: The gland echotexture is homogeneous. Thyroid vascularity is normal. RIGHT THYROID LOBE: There is 1 nodule seen. 1: Location: Mid gland. Size: 0.3 x 0.2 x 0.2 cm. Nodule characteristics: Hypoechoic. Smooth margins. No calcification. Positive vascular flow. ISTHMUS: No nodules. LEFT THYROID LOBE: No nodules. NODES: No lymphadenopathy is seen in the tissue surrounding the thyroid gland. IMPRESSION: Thyroid gland is at the upper limits of normal in size. Solitary benign appearing sub-0.5 cm sized nodule is seen in the mid right lobe. No suspicious thyroid nodule or mass. Studies Pending at [place]: None. Patient Instructions Contact Information Your Psychiatrist on [facility] was Den Hanks MD * If you are experiencing an emergency related to this hospitalization, please call [phone] to contact the treating psychiatrist or the psychiatrist-on- call. * To Request a copy of your medical records, please contact the Medical Records Department at [phone]. * To request results of studies pending at the time of discharge, please call [phone]. * Continue your Medications until directed to stop by your Healthcare provider. General Medication Information Please continue to take your new medications and your continued home medications , unless otherwise indicated on your discharge medication list, or unless directed by your MD or THERAPY TECH to stop them. Special Instructions Diet Regular Activity Normal Other Inst/Recommendations Please see Dr. Vilchis for follow up about francisco- menopause and thyroid. - Tobacco Use Treatment Offered Post DC Medications Offered: Not Applicable Post DC Tobacco Treatment Plan: Not Applicable - EtOH/Drug Use D/O Treatment Offered Post DC Medications Offered: NA-No EtOH/Drug Use D/O Post DC EtOH/SubAbuse [place] Plan: NA-No EtOH/Drug Use D/O Metabolic Screening () Not Applicable, patient not on a neuroleptic. OR () Patient on a neuroleptic(s) . Enter below results for Hemoglobin A1C, and lipid panel if obtained during the last 365 days. BMI: 23.200 Blood Pressure: 118/74 Laboratory Results From [facility] (If applicable): [x] Lab Cholesterol 198 MG/DL 03/08/18 2350 Cholesterol/HDL Ratio 4 % 03/08/18 2350 HDL Cholesterol 50 mg/dL 03/08/18 2350 Hemoglobin A1c 5.1 % 03/08/18 2350 LDL Cholesterol, Calc 122 mg/dL 03/08/18 2350 Triglycerides 131 mg/dL 03/08/18 2350 Advance Directives Does the Patient have Medical Advance Directives No/Refused further info Does Pt have Psychiatric Advance Directives? No/Per pt req info provid Does Patient have a Designated Surrogate Decision Maker: No Information About Psychiatric Advance Directives Provided? Refused Discharge Plan Post Hospital Treatment Plan: Returning to home. IOP then Clarisse Hannah APRN.
--- NOTE | 2018-03-15 11:59 | SOCIAL WORKER PROG NOTE PSYCH ---
Social Work Progress Note Progress Note Dr. Hanks and I met with Melissa this morning to discuss discharge plans for today and assess symptoms. Melissa reported that she didn't sleep very well. She's anxious about going home. Rates sadness today at a 5 (0-10, 10 being most severe) and anxiety at a 7. She feels safe to leave today and states she would never hurt herself. Asked if her sister was picking her up today? She said she would be, but may have to wait a little while outside. Asked what her plan was once home? She said her Mom would be at the casino today, so she would be home alone. She was encouraged to reach out to a friend to make a plan. She said she would try and do that. I let her know that her case sealer from [facility] called and was sorry she didn't connect with her on the unit, but she will reach out to her in the community. Melissa looked well leaving. Walked over to her intake at [facility] for 1:15pm.
[2018-03-15 12:30] VITALS: BP 109/66
--- NOTE | 2018-03-15 14:49 | CP S[facility]TH PROGRESS NOTE PSYCH ---
Psych (Inpt) Progress Note Progress Note Include the following elements, when applicable: Involvement in the active treatment of the patient with behavioral observations of the patient and the patient's response to the treatment. Review of the ongoing treatment process in the context of the treatment plan. Indication of how multi-disciplinary staff members are carrying out the treatment plan. Plans for future interventions and recommendations for revision of the treatment plan. Liaison with other physicians/providers. Progress Note: Case and treatment plan discussed in team meeting. Staff reports that the patient is denying suicidal ideation. Had a good day. Planning for discharge. Anxious. Has an intake at [facility] at 1:15 PM. Patient seen at 11:51 AM with Elham case management social worker. Patient reports feeling anxious about leaving. Reports she had a rough night and was up until 1 AM with anxiety. Reports her heart was racing. She thinks her anxiety could be related to discharge or irritation by some of the personalities here. Affect is mildly anxious. Rates mood 6/10 with 10 being worst. Rates sad mood 5/10 and anxiety like a 7/10. Denies feeling hopeless, helpless, worthless or guilty. Denies active suicidal ideation. Has occasional passive suicidal ideation but feels safe and states she would never act on it. Denies homicidal ideation. Denies auditory and visual hallucinations and paranoid ideation. Reports sleep was horrible for the last 2 nights. Describes appetite as good. Describes energy as having anxiety but energy is low behind it. Reports she is starting to become more tolerant of her medications. Feels safe for discharge. IMPRESSION: Condition improved. Okay for discharge today to [facility] intake then to home.
--- NOTE | 2018-03-15 14:57 | DISCHARGE SUMMARY REPORT-PSYCH ---
Visit Information Visit Dates/Diagnosis' Admission Date: 03/08/18 Discharge Date: 03/15/18 Reason for Admission: Called 911 due to having a panic attack and stated my meds aren t working. Reported a history of worsening symptoms during menstruation. [place] suicidal from panic. Psy Discharge Primary Diag: Major depression, rec. severe w/anxious distress Psy Discharge Secondary Diag: Hx hyperlipidemia Hx vitamin D deficiency Hx enamia Silke-menopausal Thyroid nodule Hospital Course Significant Lab Findings: Lab 1,25 Dihydroxy Vit D2 <8 pg/mL 03/08/18 2350 1,25 Dihydroxy Vit D3 46 pg/mL 03/08/18 2350 ALT 34 U/L 01/18/18 1324 AST 19 U/L 01/18/18 1324 Albumin 3.4 g/dL L 01/18/18 1324 BUN 17 mg/dL 03/08/18 1639 Calcium 8.5 mg/dL 03/08/18 1639 Carbon Dioxide 28 mmol/L 03/08/18 1639 Chloride 103 mmol/L 03/08/18 1639 Cholesterol 198 MG/DL 03/08/18 2350 Cholesterol/HDL Ratio 4 % 03/08/18 2350 Creatinine 0.8 mg/dL 03/08/18 1639 Estimated GFR > 60 ml/min 03/08/18 1639 Estradiol (E2) Level 19.0 pg/mL 03/13/18 0649 Free T4 0.95 ng/dL 03/13/18 0649 Glucose 80 mg/dL 03/08/18 1639 HDL Cholesterol 50 mg/dL 03/08/18 2350 Hemoglobin A1c 5.1 % 03/08/18 2350 Iron 66 ug/dL 03/08/18 2350 LDL Cholesterol, Calc 122 mg/dL 03/08/18 2350 Potassium 4.1 mmol/L 03/08/18 1639 Prolactin 14.9 ng/mL 03/13/18 0649 Sodium 139 mmol/L 03/08/18 1639 TIBC 332 ug/dL 03/08/18 2350 TSH 1.170 uIU/mL 03/13/18 0649 Total Beta HCG NEGATIVE 03/08/18 2350 Triglycerides 131 mg/dL 03/08/18 2350 Vit D 1,25-Dihyd Total 46 pg/mL 03/08/18 2350 Hct 37.8 % 03/08/18 1639 Hgb 12.6 G/DL 03/08/18 1639 MCH 31.9 PG H 03/08/18 1639 Plt Count 343 /CUMM 03/08/18 1639 RBC 3.95 /CUMM L 03/08/18 1639 WBC 8.7 /CUMM 03/08/18 1639 Thyroglobulin Antibody < 15 U/mL 03/13/18 0649 Thyroid Peroxidase Ab 31 U/mL 03/13/18 0649 RPR Titer/FTA NONREACTIVE 03/08/18 2350 Serum Alcohol < 10.0 MG/DL 03/08/18 1639 SERVICE DATE: 03/12/18 EXAM TYPE: US - US-SOFT TISSUES OF HEAD & NECK EXAMINATION: US THYROID CLINICAL INFORMATION: Thyroid enlargement. Presumptive diagnosis of diffuse goiter. COMPARISON: None TECHNIQUE: Linear transducer browning-scale and color Doppler examination with attention to the region of the thyroid. FINDINGS: SIZE: Measurements of the thyroid lobes and nodules are given in sagittal, anteroposterior and transverse dimensions respectively. Right Thyroid Lobe: 4.9 x 1.3 x 1.7 cm, volume 5.7 mL. Left Thyroid Lobe: 4.4 x 1.1 x 1.7 cm, volume 4.3 mL. Isthmus: 0.3 cm in maximum AP dimension. PARENCHYMA: The gland echotexture is homogeneous. Thyroid vascularity is normal. RIGHT THYROID LOBE: There is 1 nodule seen. 1: Location: Mid gland. Size: 0.3 x 0.2 x 0.2 cm. Nodule characteristics: Hypoechoic. Smooth margins. No calcification. Positive vascular flow. ISTHMUS: No nodules. LEFT THYROID LOBE: No nodules. NODES: No lymphadenopathy is seen in the tissue surrounding the thyroid gland. IMPRESSION: Thyroid gland is at the upper limits of normal in size. Solitary benign appearing sub-0.5 cm sized nodule is seen in the mid right lobe. No suspicious thyroid nodule or mass. Course Complications: The patient had a fall in the middle of the night, apparently related to low blood pressure. She reportedly fell onto her buttocks and there were no sequelae. Consultations: The patient was seen by Dr. Correa for admission H&P. Per his note of 03/09/18: "Assessment: Impression/Plan: #Anxiety/Panic Attacks- have been worsening. S/P recent psych admit. Plan: Admit to [facility]/psychiatry. #S/P Colonic Polypectomy- patient states will need 3 year follow-up colonoscopy. Plan: Follow-up as OP. #Pelvic Pain- patient states she his silke-menopausal and she discontinued her OCP's 2 weeks ago. Has not had period as of yet. Patient requesting hormone levels. Plan: Will check LH/FSH/Estradiol levels. Tylenol for pain and will follow. #H/O Hyperlipidemia- currently off statin and last chol OK last month. Plan: OP follow-up." The patient was seen by gravure press set up operator Dr. Vilchis regarding low estradiol and FSH. Per his note of 03/12/18: "Assessment/Plan This 47-year-old woman would seem to be having symptoms that she relates to her menstrual cycles. She is concerned that several days before she gets her menses she feels her emotional symptoms are worse. She feels that changes in her hormones each month right before her menses are bringing on more panic attacks.. Several days before her menses each month is the time when her panic attacks are the worst. Her menstrual cycles which have been regular up to this point. She was not helped by taking control pills in fact this may have made her symptoms worse according to what she is describing. The symptoms are extremely difficult to treat. Her estradiol level is 19.9. This could be low depending where she is in her menstrual cycle. Previously taking control pills could also influence the estradiol level as could the beginning of menopause. However we will reevaluate Also we will reevaluate her thyroid which seems slightly enlarged on examination." Allergies: Coded Allergies: amoxicillin (Mild, STOMACH ACHES 01/18/18) clavulanic acid (Mild, STOMACH ACHES 01/18/18) latex (Mild, RASH 01/18/18) procaine (Intermediate, HYPERTENSION 01/06/16) benztropine (MYDRIASIS FOR 1 MONTH 01/06/16) Hospital Course/TX Response: The patient was monitored on the unit for safety and mood disorder. She participated in multi-modal treatments on the unit. Dr. Alcocer increased Paxil dose to 50 mg qhs but the patient did not tolerate this and dose was reduced back to 40 mg qhs. Home medications were continued. Prn Neurontin was added and the patient found this beneficial for anxiety. Suicidal ideation has remitted. Anxiety persists. Progress note from date of discharge, 03/15/18: Case and treatment plan discussed in team meeting. Staff reports that the patient is denying suicidal ideation. Had a good day. Planning for discharge. Anxious. Has an intake at [facility] at 1:15 PM. Patient seen at 11:51 AM with Elham social media executive. Patient reports feeling anxious about leaving. Reports she had a rough night and was up until 1 AM with anxiety. Reports her heart was racing. She thinks her anxiety could be related to discharge or irritation by some of the personalities here. Affect is mildly anxious. Rates mood 6/10 with 10 being worst. Rates sad mood 5/10 and anxiety like a 7/10. Denies feeling hopeless, helpless, worthless or guilty. Denies active suicidal ideation. Has occasional passive suicidal ideation but feels safe and states she would never act on it. Denies homicidal ideation. Denies auditory and visual hallucinations and paranoid ideation. Reports sleep was horrible for the last 2 nights. Describes appetite as good. Describes energy as having anxiety but energy is low behind it. Reports she is starting to become more tolerant of her medications. Feels safe for discharge. IMPRESSION: Condition improved. Okay for discharge today to [facility] intake then to home. Discharge HBIPS - Tobacco Use Treatment Offered Post DC Medications Offered: Not Applicable Post DC Tobacco Treatment Plan: Not Applicable - EtOH/Drug Use D/O Treatment Offered Post DC Medications Offered: NA-No EtOH/Drug Use D/O Post DC EtOH/SubAbuse [place] Plan: NA-No EtOH/Drug Use D/O Metabolic Screening - Screen if on a Neuroleptic Medication - Metabolic screening should include: - Blood Pressure, BMI, Glucose or Hgb A1c, & a - Lipid profile from within the past 365 days. Metabolic Screening () Not Applicable, patient not on a neuroleptic. OR () Patient on a neuroleptic(s) . Enter below results for Hemoglobin A1C, and lipid panel if obtained during the last 365 days. BMI: 23.200 Blood Pressure: 109/66 Laboratory Results From [facility] (If applicable): [x] Lab Cholesterol 198 MG/DL 03/08/18 2350 Cholesterol/HDL Ratio 4 % 03/08/18 2350 HDL Cholesterol 50 mg/dL 03/08/18 2350 Hemoglobin A1c 5.1 % 03/08/18 2350 LDL Cholesterol, Calc 122 mg/dL 03/08/18 2350 Triglycerides 131 mg/dL 03/08/18 2350 Discharge Instructions General Discharge Information Multiple Neuroleptics: ([x]) Not Applicable OR Document below three failed attempts at monotherapy, or a plan to taper to monotherapy, or augmentation of Clozapine. () Discharge Diet Regular Discharge Activity Normal DC Disposition: Returning to home. Referrals Ordered Referrals Provider Referral 03/17/18 For Groups: [Josefa Araiza therapist] Josefa Araiza therapist appt. 03/17/[address] [place] [address] Provider Referral 04/17/18 For Groups: Outpatient Psychiatry [facility] appt. with Clarisse Hannah 04/17/18 8am [address] [address] An intake prior to this appt. will need to be scheduled with outpatient if this appt. is to be kept. Work with [facility] to coordinate. Provider Referral 03/15/18 For Groups: [[facility]] [facility] Intake 03/15/18 1:15pm [address] [address] Prescriptions Stop taking the following medications: Norethindrone-E.estradiol-Iron (Microgestin Fe 1-20 Tablet) 1 MG-20 MCG (21)/75 MG (7) TABLET ORAL DAILY Qty = 84 Continue taking these medications: Cholecalciferol (Vitamin D3) 1,000 UNIT TABLET 1 Tablet ORAL DAILY Comments: Last Taken:03/15/18 Time:8am Multivitamin (Multiple Vitamins) 1 EACH TABLET 1 Tablet ORAL DAILY Comments: Last Taken:03/15/18 Time:8am Ferrous Sulfate (Ferrous Sulfate) 325 MG (65 MG IRON) TABLET 1 Tablet ORAL Every 3 days Comments: Last Taken 03/15/18 Time:8am Quetiapine Fumarate (Seroquel) 50 MG TABLET 50 Milligram ORAL AT BEDTIME Qty = 14 Instructions: Take 1 tab po at bedtime. Comments: Last Taken:03/14/18 Time:2139 Lactobac #2-S. Therm-Bifido #1 (Vsl#3 Capsule) 112.5 BILLION CELL CAPSULE 1 Capsule ORAL DAILY Qty = 30 Comments: Last Taken:03/15/18 Time:8am Omeprazole (Omeprazole) 40 MG CAPSULE. 1 Capsule ORAL DAILY Qty = 30 Comments: Last Taken: Time:1636 Aspirin (Ecotrin*) 81 MG TABLET. 1 Tablet ORAL DAILY Comments: Last Taken:03/15/18 Time:8am Ascorbic Acid (Vitamin C) 500 MG CAPSULE 1 Capsule ORAL DAILY Comments: Last Taken:03/15/18 Time:8am Clonazepam (Klonopin) 0.5 MG TABLET 0.5 Milligram ORAL EVERY 6 HOURS NEEDED as needed for ANXIETY Qty = 45 Instructions: maximum of 3 tabs per day Comments: Last Taken:03/14/18 Time:231 Mirtazapine (Remeron) 15 MG TABLET 15 Milligram ORAL AT BEDTIME Qty = 15 Comments: Last Taken:03/14/18 Time:2138 Buspirone HCl (Buspirone HCl) 15 MG TABLET 15 Milligram ORAL 0800,1700 Qty = 15 Comments: Last Taken:03/15/18 Time:8am Paroxetine HCl (Paxil) 40 MG TABLET 1 Tablet ORAL TAKE AT BEDTIME Qty = 15 Comments: Last Taken:03/14/18 Time:2138 Start taking the following new medications: Ibuprofen (Ibuprofen) 600 MG TABLET 1 Tablet ORAL EVERY SIX HOURS NEEDED as needed for pain Qty = 28 No Refills Comments: Last Taken:03/13/18 Time:2020 Gabapentin (Gabapentin) 100 MG CAPSULE 1 Capsule ORAL EVERY 4 HOURS NEEDED as needed for ANXIETY/AGITATION/ INSOMNIA Qty = 42 No Refills Comments: Last Taken:03/15/18 Time:0711 Other Inst/Recommendations Please see Dr. Vilchis for follow up about silke- menopause and thyroid. Studies Pending at Discharge None. Copies To: Intensive Outpt Psychiatry; Clarisse Hannah APRN; Mabel VILCHIS,Josefa
--- NOTE | 2018-03-15 15:27 | SOCIAL WORKER PROG NOTE PSYCH ---
Social Work Progress Note Faxed Referral(s) Referred To: [facility] Transition of Care Documents sent: Health Summary Faxed to: [facility] Fax #: [phone] Faxed by: Elham Mancini Date faxed: 03/15/18 Time Faxed: [phone]
== END 2018-03-15 13:10 | DRG 754 ==
LOC: ERH 15:35 → ERHI 18:01 → CP SOUTH 18:01 → ENTRNSPT 19:37 → EDTRNSPT 19:41 → CP SOUTH 20:21 → EDTRNSPTSTS 20:23 → CMPTRNSPT 20:23 → CP SOUTH 03-09 09:58
PROVIDERS: Emergency Medicine; Psychiatry & Neurology Psychiatry
DX: F32.9 Major depressive disorder, single episode, unspecified (principal); F41.9 Anxiety disorder, unspecified; E78.5 Hyperlipidemia, unspecified; E55.9 Vitamin D deficiency, unspecified
CPT/HCPCS: 36415; 80307; 82652; 82670; 86376; 86800; 90834; G0463; G0480; J3490